=== PATIENT | male | born 1940 | race Caucasian/White ===

== ENCOUNTER 2020-11-10 12:29 | Emergency (ER) | payer MEDICARE, MEDICAID ==
[~2020-11-10] VITALS: Ht 172 cm; Wt 108.0 kg
[2020-11-10] MEDS ORDERED: FAMOTIDINE 20MG/2ML IV (PEPCID) IV STA (12:54)
--- NOTE | 2020-11-10 12:58 | ED GI ---
General Chief Complaint: Abdominal/GI Problems Stated Complaint: WEAKNESS,VOMITING DARK BROWN, NOT EATING History of Present Illness Date Seen by Provider: Nov 10, 2020 Time Seen by Provider: 12:50 Initial Comments 80-year-old male reports vomiting dark brown, coffee-ground emesis at approximately 0430 this morning. He denies eating or drinking, since he vomited. He did take his morning medications. He has had no continuation of his symptoms since then. He is on Prilosec daily, otherwise denies any chronic GI problems. On 10/19/2020 he had surgery for a cholecystectomy and ventral hernia repair at [facility]. He was admitted shortly after that for similar symptoms of coffee-ground emesis. He was started on Motrin 600 mg 3 times daily, 10/22/20 for post op pain. He denies any abdominal pain, weakness, dizziness, nausea, or vomiting. He reports not being sure why he was sent here, since he is better. Staff at [facility] spoke to his surgeon who recommended he follow up with PCP, who referred him here. He is accompanied by staff, reporting [facility] would like for him to have a CT, explained that we will start with labs and decide if a CT is indicated but based on his presenting complaints, it is unlikely. Declines any needs at this time, explained we will do a work up to assure everything is ok. Pt reports BM yesterday, no diarrhea or constipation, passing flatus today Timing/Duration: 4-6 Hours Location: Periumbilical (trace, chronic discomfort) Associated Symptoms: No Chest Pain, No Diaphoresis, No Fever/Chills, No Fatigue, No Headache, No Heartburn; Nausea/Vomiting (earlier today); No Shortness of Air, No Syncope, No Weakness Allergies and Home Medications Allergies Coded Allergies: morphine (Verified Allergy, Unknown, 11/10/20) Home Medications Famotidine 20 Mg Tablet, 20 MG PO BID Prescribed by: CJ CRUZ on 11/10/20 1347 Patient Home Medication List Home Medication List Reviewed: Yes Review of Systems Review of Systems Constitutional: no symptoms reported, see HPI Gastrointestinal: See HPI, Abdominal Pain (chronic, no change today); Denies Constipated, Denies Diarrhea; Nausea (Earlier today), Vomiting (Earlier today) All Other Systems Reviewed Negative Unless Noted: Yes Past Yzjkoxw-Mglofx-Kgrizw Hx Past Med/Social Hx: Reviewed Nursing Past Med/Soc Hx Physical Exam Vital Signs Vital Signs - First Documented 11/10/20 12:35 Temp 36.0 Pulse 77 Resp 18 B/P (MAP) 120/66 (84) Pulse Ox 96 Capillary Refill : Height/Weight/BMI Height: '" Weight: lbs. oz. kg; BMI Method: General Appearance: WD/WN, no apparent distress, obese HEENT: PERRL/EOMI, normal ENT inspection, TMs normal, pharynx normal, other (oral mucosa pink and moist) Neck: non-tender, full range of motion, supple, normal inspection Respiratory: chest non-tender, lungs clear, normal breath sounds, no respiratory distress Cardiovascular: normal peripheral pulses, regular rate, rhythm, no edema, no murmur Gastrointestinal: normal bowel sounds, non tender, soft, no pulsatile mass; No guarding, No rebound, No mass Back: normal inspection, no CVA tenderness, no vertebral tenderness Neurologic/Psychiatric: no motor/sensory deficits, alert, normal mood/affect, oriented x 3 Skin: normal color, warm/dry Progress/Results/Core Measures Results/Orders Lab Results Laboratory Tests Test 11/10/20 12:50 11/10/20 13:40 Range/Units White Blood Count 10.7 4.3-11.0 10^3/uL Red Blood Count 4.28 L 4.30-5.52 10^6/uL Hemoglobin 12.0 L 13.3-17.7 g/dL Hematocrit 38 L 40-54 % Mean Corpuscular Volume 89 80-99 fL Mean Corpuscular Hemoglobin 28 25-34 pg Mean Corpuscular Hemoglobin Concent 32 32-36 g/dL Red Cell Distribution Width 13.9 10.0-14.5 % Platelet Count 426 H 130-400 10^3/uL Mean Platelet Volume 8.9 L 9.0-12.2 fL Immature Granulocyte % (Auto) 0 % Neutrophils (%) (Auto) 70 42-75 % Lymphocytes (%) (Auto) 17 12-44 % Monocytes (%) (Auto) 5 0-12 % Eosinophils (%) (Auto) 6 0-10 % Basophils (%) (Auto) 0 0-10 % Neutrophils # (Auto) 7.6 1.8-7.8 10^3/uL Lymphocytes # (Auto) 1.8 1.0-4.0 10^3/uL Monocytes # (Auto) 0.6 0.0-1.0 10^3/uL Eosinophils # (Auto) 0.7 H 0.0-0.3 10^3/uL Basophils # (Auto) 0.0 0.0-0.1 10^3/uL Immature Granulocyte # (Auto) 0.0 0.0-0.1 10^3/uL Prothrombin Time 13.6 12.2-14.7 SEC INR Comment 1.0 0.8-1.4 Activated Partial Thromboplast Time 30 24-35 SEC Sodium Level 136 135-145 MMOL/L Potassium Level 4.9 3.6-5.0 MMOL/L Chloride Level 102 98-107 MMOL/L Carbon Dioxide Level 24 21-32 MMOL/L Anion Gap 10 5-14 MMOL/L Blood Urea Nitrogen 22 H 7-18 MG/DL Creatinine 1.42 H 0.60-1.30 MG/DL Estimat Glomerular Filtration Rate 48 BUN/Creatinine Ratio 15 Glucose Level 107 H 70-105 MG/DL Calcium Level 8.4 L 8.5-10.1 MG/DL Corrected Calcium 9.0 8.5-10.1 MG/DL Total Bilirubin 0.4 0.1-1.0 MG/DL Aspartate Amino Transf (AST/SGOT) 30 5-34 U/L Alanine Aminotransferase (ALT/SGPT) 13 0-55 U/L Alkaline Phosphatase 97 40-136 U/L Total Protein 7.5 6.4-8.2 GM/DL Albumin 3.2 3.2-4.5 GM/DL Urine Color YELLOW Urine Clarity CLEAR Urine pH 5.5 5-9 Urine Specific [place] 1.025 H 1.016-1.022 Urine Protein NEGATIVE NEGATIVE Urine Glucose (UA) NEGATIVE NEGATIVE Urine Ketones NEGATIVE NEGATIVE Urine Nitrite NEGATIVE NEGATIVE Urine Bilirubin NEGATIVE NEGATIVE Urine Urobilinogen 0.2 < = 1.0 MG/DL Urine Leukocyte Esterase NEGATIVE NEGATIVE Urine RBC (Auto) NEGATIVE NEGATIVE Urine RBC NONE /HPF Urine WBC 0-2 /HPF Urine Squamous Epithelial Cells RARE /HPF Urine Crystals NONE /LPF Urine Bacteria NEGATIVE /HPF Urine Casts NONE /LPF Urine Mucus NEGATIVE /LPF Urine Culture Indicated NO My Orders Orders - CJ CRUZ Cbc With Automated Diff (11/10/20 12:36) Comprehensive Metabolic Panel (11/10/20 12:36) Protime With Inr (11/10/20 12:36) Partial Thromboplastin Time (11/10/20 12:36) Ua Culture If Indicated (11/10/20 12:36) Ed Iv/Invasive Line Start (11/10/20 12:47) Ns Iv 1000 Ml (Sodium Chloride 0.9%) (11/10/20 13:00) Famotidine Injection (Pepcid Injection) (11/10/20 12:54) Vital Signs/I&O 11/10/20 11/10/20 12:35 13:51 Temp 36.0 Pulse 77 65 Resp 18 18 B/P (MAP) 120/66 (84) 125/73 (84) Pulse Ox 96 96 Progress Progress Note : Time: 12:50 Progress Note Patient seen and evaluated, will obtain labs, normal saline 1 L per IV and Pepcid 20 mg IV. 1315 patient taking water, no abdominal pain or vomiting. 1330 Labs all WNL, no baseline Hgb to compare but no signs of anemia. Waiting on urine sample from patient. Patient continues to deny abdominal pain or other symptoms at this time. He has had no vomiting since admission. He is continuing to take sips of water. Discharge instructions and return precautions reviewed with the patient and his staff. Departure Impression Primary Impression: Peptic ulcer Additional Impression: Vomiting Qualified Codes: R11.11 - Vomiting without nausea Disposition: 01 HOME, SELF-CARE Condition: Improved Departure-Patient Inst. Decision time for Depature: 13:30 Referrals: JC SANTOS MD (PCP/Family) Primary Care Physician Patient Instructions: Peptic Ulcers (DC) Add. Discharge Instructions: Discontinue Motrin, may give Tylenol 650 mg every 6-8 hours, for pain. Continue Prilosec daily. Add Pepcid 20 mg orally twice daily. Clear liquid diet for 4-6 hours, then advance to bland diet for next 2-3 days, avoid spicy or fried foods. Follow up with Surgeon and Dr. Santos, if symptoms are not improving or worsen. Keep scheduled appt for EGD. Return to Emergency Dept for new, urgent health care needs. All discharge instructions reviewed with patient and/or family. Voiced understanding. Scripts Famotidine (Pepcid) 20 Mg Tablet 20 MG PO BID, #60 TAB 2 Refills Prov: ANTHONY,CJ WEBSITE ADMIN 11/10/20 Copy Copies To 1: JC SANTOS MD, AMY ARNP Nov 10, 2020 12:58
[2020-11-10] MEDS ORDERED: NS IV 1000 ML 1,000 ML IV SCH (13:00)
[2020-11-10 13:03] LABS: BASOPHILS % (AUTO) 0 % (0-10); EOSINOPHILS # (AUTO) 0.7 10^3/uL (0.0-0.3); EOSINOPHILS % (AUTO) 6 % (0-10); HEMATOCRIT 38 % (40-54); LYMPHOCYTES # (AUTO) 1.8 10^3/uL (1.0-4.0); LYMPHOCYTES % (AUTO) 17 % (12-44); MEAN CORPUSCULAR HEMOGLOBIN 28 pg (25-34); MEAN CORPUSCULAR HGB CONC 32 g/dL (32-36); MEAN CORPUSCULAR VOLUME 89 fL (80-99); MEAN PLATELET VOLUME 8.9 fL (9.0-12.2); MONOCYTES # (AUTO) 0.6 10^3/uL (0.0-1.0); MONOCYTES % (AUTO) 5 % (0-12); NEUTROPHILS # (AUTO) 7.6 10^3/uL (1.8-7.8); NEUTROPHILS % (AUTO) 70 % (42-75); PLATELET COUNT 426 10^3/uL (130-400); WHITE BLOOD COUNT 10.7 10^3/uL (4.3-11.0)
[2020-11-10 13:11] LABS: PROTHROMBIN TIME PATIENT 13.6 SEC (12.2-14.7)
[2020-11-10 13:20] LABS: ALBUMIN 3.2 GM/DL (3.2-4.5); BILIRUBIN,TOTAL 0.4 MG/DL (0.1-1.0); CALCIUM 8.4 MG/DL (8.5-10.1); CREATININE SERUM 1.42 MG/DL (0.60-1.30); POTASSIUM 4.9 MMOL/L (3.6-5.0); TOTAL PROTEIN 7.5 GM/DL (6.4-8.2)
[2020-11-10 13:46] LABS: BILIRUBIN,URINE NEGATIVE (NEGATIVE); CLARITY,URINE CLEAR; COLOR,URINE YELLOW; GLUCOSE, URINE (UA) NEGATIVE (NEGATIVE); KETONES,URINE NEGATIVE (NEGATIVE); LEUKOCYTE ESTERASE ,URINE NEGATIVE (NEGATIVE); NITRITE,URINE NEGATIVE (NEGATIVE); PH,URINE 5.5 (5-9); PROTEIN,URINE NEGATIVE (NEGATIVE)
[2020-11-10] MEDS ORDERED: FAMO-119 PO (13:47)
[2020-11-10 13:51] VITALS: BP 125/73
[2020-11-10 13:53] LABS: BACTERIA,URINE NEGATIVE /HPF; SQUAMOUS EPITHELIAL CELL,UR RARE /HPF; WBC,URINE 0-2 /HPF
== END 2020-11-10 13:55 | disposition home or self-care (01) ==
LOC: ER 12:34
DX: K27.9 Peptic ulcer, site unspecified, unspecified as acute or chronic, without hemorrhage or perforation (principal); R11.10 Vomiting, unspecified; E66.9 Obesity, unspecified; Z88.5 Allergy status to narcotic agent; Z90.49 Acquired absence of other specified parts of digestive tract
CPT/HCPCS: 36415; 80053; 81000; 85025; 85610; 85730

== ENCOUNTER 2020-12-27 05:37 | Outpatient (CLI) | payer MEDICARE, MEDICAID ==
[~2020-12-27] VITALS: Ht 175.3 cm; Wt 108.8 kg
[~2020-12-27 05:37] MED LIST: FAMO-119 PO
== END 2020-12-27 14:54 | disposition home or self-care (01) ==
LOC: PREOP 05:37
PROVIDERS: ATTEND Surgery
DX: Z01.818 Encounter for other preprocedural examination (principal)

== ENCOUNTER 2021-01-03 09:25 | Day surgery (SDC) | payer MEDICARE, MEDICAID ==
[~2021-01-03] VITALS: Ht 175.3 cm; Wt 108.8 kg
[2021-01-03] VITALS (8 sets, daily range): BP systolic 106–161; BP diastolic 59–82
[2021-01-03] MEDS ORDERED: LACTATED RINGERS 1,000 ML IV STA (09:44)
[2021-01-03] MEDS ORDERED: HURRICAINE EXT TUBE (BENZOCAINE) XX PRN (09:45)
[2021-01-03] MEDS ORDERED: OMEP40CA6 PO (10:41)
[2021-01-03] MEDS ORDERED: VENL75CA93 PO (10:41)
[2021-01-03] MEDS ORDERED: FLUT16SP22 NSEACH (10:41)
[2021-01-03] MEDS ORDERED: OXYC-556 PO (10:41)
[2021-01-03] MEDS ORDERED: LEVO75CA5 PO (10:41)
[2021-01-03] MEDS ORDERED: DILT60TA PO (10:41)
[2021-01-03] MEDS ORDERED: ALLO300T2 PO (10:41)
[2021-01-03] MEDS ORDERED: MEMA28CA5 PO (10:41)
[2021-01-03] MEDS ORDERED: AMIO200T6 PO (10:41)
[2021-01-03] MEDS ORDERED: proPOfol 200 MG/20 ML (DIPRIVAN) VIAL IV ONE (10:46)
--- NOTE | 2021-01-03 11:14 | Progress Note-Post Operative ---
Post-Operative Progess Note Surgeon (s)/Reporting Manager (s) Surgeon ADRIAN TAMEZ DO Reporting Manager: none Pre-Operative Diagnosis hematemesis Post-Operative Diagnosis severe gastritis hiatal hernia tortuous esophagus Procedure & Operative Findings Date of Procedure 01/03/21 Procedure Performed/Findings PROCEDURE NOTE: After informed consent was obtained, the patient was brought to the endoscopy suite, placed in bed in left lateral decubitus position. He was administered IV sedation by the SCRAP DEALER who then monitored his vitals the entire time, heart rate, blood pressure and pulse ox and the scope was inserted down the mouth through the esophagus into the stomach. On the way down, noted a very tortuous esophagus, took a picture, pushed into the stomach, pushed past the antrum into the duodenum. Duodenum looked good; but it looked like I could see suture or staple in the duodenum and could not get past this point. Pulled back and did a biopsy of antrum, then retroflexed the scope, saw a large hiatal hernia, took a picture of this and then pulled the scope into the GE junction, took another picture of the hiatal hernia and then did a biopsy of the GE junction. Pushed the scope back into the stomach, suctioned all the air out of the stomach and then pulled the scope up the esophagus, took some pictures in the esophagus. There were no ulcers and at this point pulled the scope up the esophagus and out the mouth. The patient tolerated the procedure, and he recovered in endoscopy suite. Anesthesia Type IV sedation by SCRAP DEALER Estimated Blood Loss Estimated blood loss (mL): scant Specimens/Packing Specimens Removed antral bx body of stomach bx GE jxn bx ADRIAN TAMEZ DO Jan 03, 2021 11:14
--- NOTE | 2021-01-03 11:15 | Endoscopy Discharge Instruct ---
Endo Procedure/Findings Findings 1.: Gastritis 2.: Hiatal Hernia Discharge Instructions - Activity: You might feel a little sleepy until tomorrow. This is due to the medicine you received to relax you. Until tomorrow, you should: NOT drive a car, operate machinery or power tools. NOT drink any alcoholic beverages. NOT make any important decisions or sign importortant papers. Do not return to work until tomorrow, unless otherwise instructed. Resume previous activities tomorrow. Diet: Start by taking liquids. If you tolerate liquids, advance to solid food. 1.: EGD in 6-8 weeks Notify Physician - If you experience excessive bleeding, unusual abdominal pain, fever, or chest pain, contact your doctor immediately. ADRIAN TAMEZ DO Jan 03, 2021 11:15
--- NOTE | 2021-01-03 12:17 | Anesthesia-General Post-Op ---
MAC Patient Condition Mental Status/LOC: Same as Preop Cardiovascular: Satisfactory Nausea/Vomiting: Absent Respiratory: Satisfactory Pain: Controlled Complications: Absent Post Op Complications Complications None Follow Up Care/Instructions Patient Instructions None needed. Anesthesiology Discharge Order Discharge Order Patient was seen after the procedure and he was doing well, no complaints, stable vital signs, no apparent adverse anesthesia problems. BRAYDEN MAIER 21, 2021 12:17
== END 2021-01-03 12:05 | disposition home or self-care (01) ==
LOC: ENDO 09:25
PROVIDERS: ATTEND Surgery
DX: K29.70 Gastritis, unspecified, without bleeding (principal); K44.9 Diaphragmatic hernia without obstruction or gangrene; K22.8 Other specified diseases of esophagus; K22.2 Esophageal obstruction; K21.00 Gastro-esophageal reflux disease with esophagitis, without bleeding; K92.0 Hematemesis; I10 Essential (primary) hypertension; J44.9 Chronic obstructive pulmonary disease, unspecified; I48.91 Unspecified atrial fibrillation; K21.9 Gastro-esophageal reflux disease without esophagitis; F32.9 Major depressive disorder, single episode, unspecified; F41.9 Anxiety disorder, unspecified; E03.9 Hypothyroidism, unspecified; Z79.899 Other long term (current) drug therapy; Z79.890 Hormone replacement therapy
CPT/HCPCS: 88305

== ENCOUNTER 2021-07-31 08:30 | Inpatient (IN) | payer MEDICARE, MEDICAID ==
[~2021-07-31] VITALS: Ht 172.7 cm; Wt 113.4 kg
[~2021-07-31 08:30] MED LIST changes: +ALLO300T2 PO; +AMIO200T65 PO; +DILT60TA PO; +FLUT16SP22 NSEACH; +LEVO75CA5 PO; +MEMA28CA16 PO; +OMEP40CA6 PO; +OXYC-556 PO; +VENL75CA93 PO
--- NOTE | 2021-07-31 09:02 | ED Dyspnea ---
General Stated Complaint: WEAKNESS,N/V Source of Information: Patient Exam Limitations: No Limitations History of Present Illness Date Seen by Provider: Jul 31, 2021 Time Seen by Provider: 08:45 Initial Comments Patient to the ER by private conveyance from medical [place] with chief complaint of decreased activity shortness of breath weakness. Patient states it started about 30 days ago but is gotten worse in the past couple days and his daughter visited him and thought he might need to go to the ER to be checked out. They discovered his oxygen saturations around 90% and put him on 2 L. He does not use oxygen at baseline. He has a history of COPD but denies being wheezy. He says when he gets up just to walk across the room he becomes winded and worn out. No history of heart disease. Difficult historian. Not on blood thinners. No chest pain. 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 He denies any fevers or chills. He has had COVID-19 vaccinations. He does not know if he has had any sick contacts in the retirement. Allergies and Home Medications Allergies Coded Allergies: morphine (Verified Allergy, Unknown, 11/10/20) Patient Home Medication List Home Medication List Reviewed: Yes Allopurinol (Allopurinol) 300 Mg Tablet, 300 MG PO DAILY, (Reported) Entered as Reported by: CONNIE SMITH on 01/03/21 1041 Amiodarone HCl (Amiodarone HCl) 200 Mg Tablet, 200 MG PO DAILY, (Reported) Entered as Reported by: CONNIE SMITH on 01/03/21 1041 Diltiazem HCl (Diltiazem HCl) 60 Mg Tablet, 60 MG PO TID, (Reported) Entered as Reported by: CONNIE SMITH on 01/03/21 1041 Famotidine (Pepcid) 20 Mg Tablet, 20 MG PO BID Prescribed by: CJ CRUZ on 11/10/20 1347 Fluticasone Propionate (Fluticasone Propionate) 16 Gm [place].susp, 1 SPRAY NSEACH DAILY, (Reported) Entered as Reported by: CONNIE SMITH on 01/03/21 1041 Levothyroxine Sodium (Levothyroxine) 75 Mcg Capsule, 75 MCG PO DAILY, (Reported) Entered as Reported by: CONNIE SMITH on 01/03/21 1041 Memantine HCl (Memantine HCl ER) 28 Mg Cap.spr.24, 28 MG PO DAILY, (Reported) Entered as Reported by: CONNIE SMITH on 01/03/21 1041 Omeprazole (Omeprazole) 40 Mg Capsule.dr, 40 MG PO DAILY, (Reported) Entered as Reported by: CONNIE SMITH on 01/03/21 1041 Oxycodone HCl/Acetaminophen (Oxycodone-Acetaminophen 10-325) 1 Each Tablet, 1 EACH PO Q6H PRN for PAIN-MODERATE (5-7), (Reported) Entered as Reported by: CONNIE SMITH on 01/03/21 1041 Venlafaxine HCl (Venlafaxine HCl ER) 75 Mg Cap.er.24h, 75 MG PO DAILY, (Reported) Entered as Reported by: CONNIE SMITH on 01/03/21 1041 Review of Systems Review of Systems Constitutional: No chills, No fever; malaise, weakness EENTM: No ear discharge, No ear pain Respiratory: cough, short of breath Cardiovascular: No chest pain, No palpitations Gastrointestinal: No abdominal pain, No nausea, No vomiting Genitourinary: No discharge, No dysuria Musculoskeletal: No back pain, No joint pain Skin: No pruritus, No rash Psychiatric/Neurological: Denies Headache, Denies Numbness All Other Systems Reviewed Negative Unless Noted: Yes Past Fxzwbvk-Uykdpd-Cqbjnw Hx Patient Social History Tobacco Use?: No Use of E-Cig and/or Vaping dev: No Seasonal Allergies Seasonal Allergies: No Past Medical History Surgeries: Yes Abdominal, Gallbladder Respiratory: No Cardiac: Yes Atrial Fibrillation, Hypertension Genitourinary: No Gastrointestinal: Yes Gastroesophageal Reflux, Ulcer Musculoskeletal: No Endocrine: No HEENT: No Cancer: No Psychosocial: Yes (DEMENTIA) Anxiety, Depression Integumentary: No Physical Exam Vital Signs Vital Signs - First Documented Capillary Refill : Height, Weight, BMI Height: '" Weight: lbs. oz. kg; 35.40 BMI Method: General Appearance: Chronically ill, Moderate Distress HEENT: PERRL/EOMI, Pharynx Normal, Moist Mucous Membranes Neck: Full Range of Motion, Normal Inspection Respiratory: Lungs Clear, No Accessory Muscle Use, Decreased Breath Sounds, Respiratory Distress (Sent onModerate respiratory distress with oxygen sa turations room air. 25 breaths/min. No wheezing or crackles auscultated. Diminished breath sounds bilaterally) Cardiovascular: Regular Rate, Rhythm, No Edema, Normal Peripheral Pulses Peripheral Pulses: 2+ Dorsalis Pedis (R), 2+ Left Dors-Pedis (L) Gastrointestinal: Normal Bowel Sounds, Non Tender, Soft Extremity: Normal Capillary Refill, Normal Inspection, Normal Range of Motion Neurologic/Psychiatric: Alert, Oriented x3 Skin: Normal Color, Warm/Dry Progress/Results/Core Measures Results/Orders Lab Results Laboratory Tests Test 07/31/21 09:25 07/31/21 09:45 07/31/21 11:11 Range/Units White Blood Count 9.7 4.3-11.0 10^3/uL Red Blood Count 5.26 4.30-5.52 10^6/uL Hemoglobin 15.3 13.3-17.7 g/dL Hematocrit 47 40-54 % Mean Corpuscular Volume 89 80-99 fL Mean Corpuscular Hemoglobin 29 25-34 pg Mean Corpuscular Hemoglobin Concent 33 32-36 g/dL Red Cell Distribution Width 14.6 H 10.0-14.5 % Platelet Count 262 130-400 10^3/uL Mean Platelet Volume 9.3 9.0-12.2 fL Immature Granulocyte % (Auto) 0 % Neutrophils (%) (Auto) 71 42-75 % Lymphocytes (%) (Auto) 15 12-44 % Monocytes (%) (Auto) 5 0-12 % Eosinophils (%) (Auto) 8 0-10 % Basophils (%) (Auto) 1 0-10 % Neutrophils # (Auto) 6.9 1.8-7.8 10^3/uL Lymphocytes # (Auto) 1.5 1.0-4.0 10^3/uL Monocytes # (Auto) 0.5 0.0-1.0 10^3/uL Eosinophils # (Auto) 0.8 H 0.0-0.3 10^3/uL Basophils # (Auto) 0.1 0.0-0.1 10^3/uL Immature Granulocyte # (Auto) 0.0 0.0-0.1 10^3/uL Prothrombin Time 13.9 12.2-14.7 SEC INR Comment 1.0 0.8-1.4 D-Dimer 0.41 0.00-0.49 UG/ML Sodium Level 131 L 135-145 MMOL/L Potassium Level 3.8 3.6-5.0 MMOL/L Chloride Level 95 L 98-107 MMOL/L Carbon Dioxide Level 25 21-32 MMOL/L Anion Gap 11 5-14 MMOL/L Blood Urea Nitrogen 15 7-18 MG/DL Creatinine 1.32 H 0.60-1.30 MG/DL Estimat Glomerular Filtration Rate 55 BUN/Creatinine Ratio 11 Glucose Level 105 70-105 MG/DL Calcium Level 8.9 8.5-10.1 MG/DL Corrected Calcium 9.3 8.5-10.1 MG/DL Total Bilirubin 0.7 0.1-1.0 MG/DL Aspartate Amino Transf (AST/SGOT) 20 5-34 U/L Alanine Aminotransferase (ALT/SGPT) 10 0-55 U/L Alkaline Phosphatase 75 40-136 U/L Troponin I 0.046 H <0.028 NG/ML C-Reactive Protein High Sensitivity 1.44 H 0.00-0.50 MG/DL B-Type Natriuretic Peptide 71.5 <100.0 PG/ML Total Protein 7.7 6.4-8.2 GM/DL Albumin 3.5 3.2-4.5 GM/DL Procalcitonin 0.10 H <0.10 NG/ML Influenza Type A (RT-PCR) Not Detected Not Detecte Influenza Type B (RT-PCR) Not Detected Not Detecte SARS-CoV-2 RNA (RT-PCR) Not Detected Not Detecte Blood Gas Puncture Site R RAD Blood Gas Patient Temperature 36.9 Arterial Blood pH 7.37 7.37-7.43 Arterial Blood Partial Pressure CO2 46 H 35-45 MMHG Arterial Blood Partial Pressure O2 104 H 79-93 MMHG Arterial Blood HCO3 26 23-27 MMOL/L Arterial Blood Total CO2 27.4 21.0-31.0 MMOL/L Arterial Blood Oxygen Saturation 96 94-100 % Arterial Blood Base Excess 1.3 -2.5-2.5 MMOL/L Erasmo Test YES-POS Blood Gas Ventilator Setting NO Blood Gas Inspired Oxygen 2L Urine Color DARK YELLOW Urine Clarity SL CLOUDY Urine pH 6.0 5-9 Urine Specific [place] 1.025 H 1.016-1.022 Urine Protein NEGATIVE NEGATIVE Urine Glucose (UA) NEGATIVE NEGATIVE Urine Ketones NEGATIVE NEGATIVE Urine Nitrite NEGATIVE NEGATIVE Urine Bilirubin 1+ H NEGATIVE Urine Urobilinogen 1.0 < = 1.0 MG/DL Urine Leukocyte Esterase 1+ H NEGATIVE Urine RBC (Auto) TRACE-I H NEGATIVE Urine RBC 0-2 /HPF Urine WBC 25-50 H /HPF Urine Squamous Epithelial Cells NONE /HPF Urine Crystals NONE /LPF Urine Bacteria TRACE /HPF Urine Casts NONE /LPF Urine Mucus NEGATIVE /LPF Urine Culture Indicated YES My Orders Orders - DANYELLE METZGER Cbc With Automated Diff (07/31/21 08:55) Comprehensive Metabolic Panel (07/31/21 08:55) Hs C Reactive Protein (07/31/21 08:55) Chest 1 View, Ap/Pa Only (07/31/21 08:55) O2 (07/31/21 08:55) Ua Culture If Indicated (07/31/21 08:55) Protime With Inr (07/31/21 08:55) Ekg Tracing (07/31/21 08:55) Continuous Ekg Monitoring (07/31/21 08:55) Troponin I Sp (07/31/21 08:55) Bnp Sp (07/31/21 08:55) Covid 19 Inhouse Test (07/31/21 08:55) Influenza A And B By Pcr (07/31/21 08:55) Fibrin Degradation Products (07/31/21 08:58) Procalcitonin (Pct) (07/31/21 08:58) Ed Iv/Invasive Line Start (07/31/21 09:02) Ns Iv 500 Ml (Sodium Chloride 0.9%) (07/31/21 09:15) Arterial Blood Gas (07/31/21 09:45) Arterial Blood Draw - Obtain (07/31/21 ) Urine Culture (07/31/21 11:11) Medications Given in ED Current Medications Medications Dose Ordered Sig/Julianne Route Start Time Stop Time Status Last Admin Dose Admin Sodium Chloride 500 ml @ 0 mls/hr Q0M ONCE IV 07/31/21 09:15 07/31/21 09:16 DC 07/31/21 09:27 500 MLS/HR Vital Signs/I&O 07/31/21 07/31/21 07/31/21 08:50 08:50 09:20 Temp 36.9 Pulse 81 Resp 22 B/P (MAP) 119/78 (92) Pulse Ox 95 O2 Delivery Nasal Cannula Nasal Cannula Nasal Cannula O2 Flow Rate 2.00 2.00 2.00 Progress Progress Note #1: Time: 09:02 Progress Note Patient has some respiratory distress. ABG labs, EKG, D-dimer, procalcitonin, COVID and influenza swabs and a chest x-ray. Aseptic vital signs. Progress Note #2: Time: 11:33 Progress Note Patient's troponin is marginally elevated and creatinine is a little off but not enough to explain the troponin. He will likely need some trended troponins. This might explain his exercise intolerance lately. We will give him Rocephin for his UTI Initial ECG Impression Date: Jul 31, 2021 Initial ECG Impression Time: 08:54 Initial ECG Rate: 73 Initial ECG Rhythm: Normal Sinus Initial ECG Intervals: QT (596) Initial ECG Impression: Normal Initial ECG Comparisson: No Previous ECG Available Diagnostic Imaging Diagonstic Imaging: Xray Plain Films/CT/US/NM/MRI: chest Comments [facility], [place] NAME: CHRISTOS V[facility] REC#: [id number] PT STATUS: REG ER : 1940 PHYSICIAN: DANYELLE METZGER MD ADMIT DATE: 07/31/21/ER Signed Date of Exam:07/31/21 CHEST 1 VIEW, AP/PA ONLY CHEST 1 VIEW, AP/PA ONLY Indication: Shortness of air. Comparison: None available. Findings: Ill-defined opacities with reticular appearance of present in the periphery of the lungs, greater on the right. No pleural effusion or pneumothorax. Heart is normal in size. Apical subpleural scarring is likely present. Impression: 1. Peripheral ill-defined opacities could be on the basis of emphysema or chronic interstitial lung disease. In the acute setting, atypical infection could give this appearance. Dictated by: Dictated on workstation # [id number] Dict: 07/31/21 1030 Trans: 07/31/218 [id number] Interpreted by: JESSICA MANDUJANO MD Electronically signed by: JESSICA MANDUJANO MD 07/31/21 1128 Reviewed: Reviewed by Me Departure Communication (Admissions) Time/Spoke to Admitting Phy: 11:45 Discussed the case with Dr. Munguia and he agrees with Sharona, observation and trend troponins. Time/Spoke to Consulting Phy: 11:39 Discussed the case with Dr. Barron and he agrees to consult on the case. Observe and trend troponins. Impression Primary Impression: UTI (urinary tract infection) Qualified Codes: N30.00 - Acute cystitis without hematuria Additional Impression: Elevated troponin I level Disposition: ADMITTED INPATIENT Condition: Stable Admissions Decision to Admit Reason: Admit from ER (General) Decision to Admit/Date: Jul 31, 2021 Time/Decision to Admit Time: 11:35 Departure-Patient Inst. Referrals: JC SANTOS MD (PCP/Family) Primary Care Physician DANYELLE METZGER Jul 31, 2021 09:02
[2021-07-31] MEDS ORDERED: NS IV 500 ML 500 ML IV ONE (09:15)
[2021-07-31 09:36] LABS: BASOPHILS # (AUTO) 0.1 10^3/uL (0.0-0.1); BASOPHILS % (AUTO) 1 % (0-10); EOSINOPHILS # (AUTO) 0.8 10^3/uL (0.0-0.3); EOSINOPHILS % (AUTO) 8 % (0-10); HEMATOCRIT 47 % (40-54); HEMOGLOBIN 15.3 g/dL (13.3-17.7); LYMPHOCYTES # (AUTO) 1.5 10^3/uL (1.0-4.0); LYMPHOCYTES % (AUTO) 15 % (12-44); MEAN CORPUSCULAR HEMOGLOBIN 29 pg (25-34); MEAN CORPUSCULAR HGB CONC 33 g/dL (32-36); MEAN CORPUSCULAR VOLUME 89 fL (80-99); MEAN PLATELET VOLUME 9.3 fL (9.0-12.2); MONOCYTES # (AUTO) 0.5 10^3/uL (0.0-1.0); MONOCYTES % (AUTO) 5 % (0-12); NEUTROPHILS # (AUTO) 6.9 10^3/uL (1.8-7.8); NEUTROPHILS % (AUTO) 71 % (42-75); PLATELET COUNT 262 10^3/uL (130-400); WHITE BLOOD COUNT 9.7 10^3/uL (4.3-11.0)
[2021-07-31 09:54] LABS: ABG BASE EXCESS 1.3 MMOL/L (-2.5-2.5); ABG OXYGEN SATURATION 96 % (94-100); ABG PCO2 46 MMHG (35-45); ABG PH 7.37 (7.37-7.43); ABG PO2 104 MMHG (79-93); ABG TCO2 27.4 MMOL/L (21.0-31.0); ALLENS TEST YES-POS; INSPIRED O2 2L; PATIENT TEMP 36.9; VENTILATOR NO
[2021-07-31 09:57] LABS: ALBUMIN 3.5 GM/DL (3.2-4.5); POTASSIUM 3.8 MMOL/L (3.6-5.0)
[2021-07-31 09:59] LABS: CALCIUM 8.9 MG/DL (8.5-10.1)
[2021-07-31 10:00] LABS: TOTAL PROTEIN 7.7 GM/DL (6.4-8.2)
[2021-07-31 10:01] LABS: FIBRIN DEGRADATION PRODUCTS 0.41 UG/ML (0.00-0.49); PROTHROMBIN TIME PATIENT 13.9 SEC (12.2-14.7)
[2021-07-31 10:02] LABS: BILIRUBIN,TOTAL 0.7 MG/DL (0.1-1.0)
[2021-07-31 10:04] LABS: CREATININE SERUM 1.32 MG/DL (0.60-1.30)
--- NOTE | 2021-07-31 10:56 | Diagnostic Imaging Report ---
CHEST 1 VIEW, AP/PA ONLY Indication: Shortness of air. Comparison: None available. Findings: Ill-defined opacities with reticular appearance of present in the periphery of the lungs, greater on the right. No pleural effusion or pneumothorax. Heart is normal in size. Apical subpleural scarring is likely present. Impression: 1. Peripheral ill-defined opacities could be on the basis of emphysema or chronic interstitial lung disease. In the acute setting, atypical infection could give this appearance. Dictated by: Dictated on workstation # [id number]
[2021-07-31 11:15] LABS: CLARITY,URINE SL CLOUDY; COLOR,URINE DARK YELLOW; GLUCOSE, URINE (UA) NEGATIVE (NEGATIVE); KETONES,URINE NEGATIVE (NEGATIVE); LEUKOCYTE ESTERASE ,URINE 1+ (NEGATIVE); NITRITE,URINE NEGATIVE (NEGATIVE); PROTEIN,URINE NEGATIVE (NEGATIVE)
[2021-07-31 11:26] LABS: BACTERIA,URINE TRACE /HPF; BILIRUBIN,URINE 1+ (NEGATIVE); RBC,URINE 0-2 /HPF; WBC,URINE 25-50 /HPF
[2021-07-31] MEDS ORDERED: ENOXAPARIN 60 MG/0.6 ML (LOVENOX) SYR SC ONE ×2 (12:00)
[2021-07-31] MEDS ORDERED: CATHETER FLUSH 10 ML SYR IV PRN (12:30)
[2021-07-31] MEDS ORDERED: ONDANSETRON 4 MG/2 ML (SDV) Z0FRAN IVP PRN (12:30)
[2021-07-31 12:38] VITALS: BP 132/78
[2021-07-31] MEDS ORDERED: NITROGLYCERIN 0.4 MG SL TABS BTL 25'S SL PRN (12:45)
[2021-07-31] MEDS: cefTRIAXone 1 GM IV (PRE-MIX) 50 ML IV SCH (13:49)
[2021-07-31] MEDS: ACETAMINOPHEN 325 MG TABLET PO PRN (13:50)
[2021-07-31] MEDS: CATHETER FLUSH 10 ML SYR IV SCH ×2 (13:53→20:10)
[2021-07-31] MEDS ORDERED: LEVO150C4 PO (14:42)
[2021-07-31] MEDS ORDERED: TRZ50T PO (14:44)
--- NOTE | 2021-07-31 15:50 | Consultation-Cardiology ---
HPI-Cardiology Cardiology Consultation: Date of Consultation 07/31/21 Time Seen by a Provider: 14:10 Date of Admission Attending Physician Petr Munguia MD Admitting Physician Andres Frazier MD Consulting Physician TREVOR LUCIO MD, MA, FACP, FACC, FSCAI, CCDS HPI: Chief Complaint: Reason for Card consult: Elevated troponin 81 yo man, resident of a care facility, who came to the ER at the behest of his family for eval of increasing shortness of breath and mild hypoxemia noted at his care facility. He states he is chronically short of breath, but this has been progressive for the last two weeks. He denies cp or palp or syncope or swelling. He notes a cough productive of small qty of yellowish sputum. He notes gen malaise and weakness. Review of Systems-Cardiology Review of Systems Constitutional: malaise, tiredness; No weight loss, No weight gain Eyes: No vision change Ears/Nose/Throat: No ear discharge, No nasal drainage, No recent hearing loss Respiratory: As described under HPI Cardiovascular: As described under HPI Gastrointestinal: No diarrhea, No nausea, No vomiting Genitourinary: No dysuria, No hematuria, No urine frequency changes Musculoskeletal: back pain (chronic) Skin: No rash, No ulcerations Psychiatric/Neurological: No seizure, No focal weakness, No syncope Hematologic: No bleeding abnormalities All Other Systems Reviewed Negative Unless Noted: Yes [id number]-Hryxes Hx Patient Social History Smoking Status: Former Smoker Have you traveled recently?: No Alcohol Use?: No Pt feels they are or have been: No Past Medical History PMH As described under Assessment. Allergies and Home Medications Allergies Coded Allergies: morphine (Verified Allergy, Unknown, 11/10/20) Patient Home Medication List Home Medication List Reviewed: Yes Allopurinol (Allopurinol) 300 Mg Tablet, 300 MG PO DAILY, (Reported) Entered as Reported by: CONNIE SMITH on 01/03/21 1041 Last Action: Reviewed Amiodarone HCl (Amiodarone HCl) 200 Mg Tablet, 200 MG PO DAILY, (Reported) Entered as Reported by: CONNIE SMITH on 01/03/21 1041 Last Action: Reviewed Diltiazem HCl (Diltiazem HCl) 60 Mg Tablet, 60 MG PO TID, (Reported) Entered as Reported by: CONNIE SMITH on 01/03/21 1041 Last Action: Reviewed Famotidine (Pepcid) 20 Mg Tablet, 20 MG PO BID Prescribed by: CJ CRUZ on 11/10/20 1347 Last Action: Reviewed Fluticasone Propionate (Fluticasone Propionate) 16 Gm [place].susp, 1 SPRAY NSEACH DAILY, (Reported) Entered as Reported by: CONNIE SMITH on 01/03/211040 Last Action: Reviewed Levothyroxine Sodium (Levothyroxine) 150 Mcg Capsule, 150 MCG PO DAILY, (Reported) Entered as Reported by: Denisha Zelaya on 07/31/21 1442 Last Action: New Order Memantine HCl (Memantine HCl ER) 28 Mg Cap.spr.24, 28 MG PO DAILY, (Reported) Entered as Reported by: CONNIE SMITH on 01/03/211040 Last Action: Reviewed Omeprazole (Omeprazole) 40 Mg Capsule.dr, 40 MG PO DAILY, (Reported) Entered as Reported by: CONNIE SMITH on 01/03/211040 Oxycodone HCl/Acetaminophen (Oxycodone-Acetaminophen 10-325) 1 Each Tablet, 1 EACH PO Q6H PRN for PAIN-MODERATE (5-7), (Reported) Entered as Reported by: CONNIE SMITH on 01/03/211040 Last Action: Reviewed Trazodone HCl (Trazodone HCl) 50 Mg Tablet, 50 MG PO HS, (Reported) Entered as Reported by: Denisha Zelaya on 07/31/21 1444 Last Action: New Order Venlafaxine HCl (Venlafaxine HCl ER) 75 Mg Cap.er.24h, 75 MG PO DAILY, (Reported) Entered as Reported by: CONNIE SMITH on 01/03/211040 Last Action: Reviewed Discontinued Medications Levothyroxine Sodium (Levothyroxine) 75 Mcg Capsule, 75 MCG PO DAILY, (Reported) Discontinued Reason: No Longer Taking Entered as Reported by: CONNIE SMITH on 01/03/211040 Last Action: Discontinued Physical Exam-Cardiology Physical Exam Vital Signs/I&O 07/31/21 07/31/21 07/31/21 07/31/21 08:50 08:50 09:20 12:11 Temp 36.9 Pulse 81 Resp 22 66 B/P (MAP) 119/78 (92) 97/72 Pulse Ox 95 99 O2 Delivery Nasal Cannula Nasal Cannula Nasal Cannula Nasal Cannula O2 Flow Rate 2.00 2.00 2.00 2.00 07/31/21 07/31/21 07/31/21 12:32 12:38 14:13 Temp 36.8 Pulse 68 69 Resp 20 B/P (MAP) 132/78 (96) Pulse Ox 99 96 O2 Delivery Nasal Cannula Nasal Cannula O2 Flow Rate 2.00 3.00 Capillary Refill : Less Than 3 Seconds Constitutional: AAO x 3, well-developed, well-nourished HEENT: EOMI, hearing is well preserved; No xanthelasmas are seen Neck: carotid pulses are 2 + bilaterally, with good upstrokes Respiratory: No accessory muscle use; other (scattered rhonchi over large airways, coarse crackles at lung bases) Cardiovascular: regular rate-rhythm, S1 and S2, systolic murmur (soft DIPAK at card base) Gastrointestinal: No tender; soft; No guarding, No rebound; audible bowel sounds Extremities: No clubbing, No cyanosis, No significant edema Neurologic/Psychiatric: oriented x 3, other (moves all limbs equally) Skin: No rash on exposed areas, No ulcerations on exposed areas Data Review Labs Laboratory Tests 07/31/21 09:25: White Blood Count 9.7, Red Blood Count 5.26, Hemoglobin 15.3, Hematocrit 47, Mean Corpuscular Volume 89, Mean Corpuscular Hemoglobin 29, Mean Corpuscular Hemoglobin Concent 33, Red Cell Distribution Width 14.6H, Platelet Count 262, Mean Platelet Volume 9.3, Immature Granulocyte % (Auto) 0, Neutrophils (%) (Auto) 71, Lymphocytes (%) (Auto) 15, Monocytes (%) (Auto) 5, Eosinophils (%) (Auto) 8, Basophils (%) (Auto) 1, Neutrophils # (Auto) 6.9, Lymphocytes # (Auto) 1.5, Monocytes # (Auto) 0.5, Eosinophils # (Auto) 0.8H, Basophils # (Auto) 0.1, Immature Granulocyte # (Auto) 0.0, Prothrombin Time 13.9, INR Comment 1.0, D- Dimer 0.41, Sodium Level 131L, Potassium Level 3.8, Chloride Level 95L, Carbon Dioxide Level 25, Anion Gap 11, Blood Urea Nitrogen 15, Creatinine 1.32H, Est imat Glomerular Filtration Rate 55, BUN/Creatinine Ratio 11, Glucose Level 105, Calcium Level 8.9, Corrected Calcium 9.3, Total Bilirubin 0.7, Aspartate Amino Transf (AST/SGOT) 20, Alanine Aminotransferase (ALT/SGPT) 10, Alkaline Phosphatase 75, Troponin I 0.046H, C-Reactive Protein High Sensitivity 1.44H, B- Type Natriuretic Peptide 71.5, Total Protein 7.7, Albumin 3.5, Procalcitonin 0.10H, Influenza Type A (RT-PCR) Not Detected, Influenza Type B (RT-PCR) Not Detected, SARS-CoV-2 RNA (RT-PCR) Not Detected 07/31/21 09:45: Blood Gas Puncture Site R RAD, Blood Gas Patient Temperature 36.9, Arterial Blood pH 7.37, Arterial Blood Partial Pressure CO2 46H, Arterial Blood Partial Pressure O2 104H, Arterial Blood HCO3 26, Arterial Blood Total CO2 27.4, Arterial Blood Oxygen Saturation 96, Arterial Blood Base Excess 1.3, Erasmo Test YES-POS, Blood Gas Ventilator Setting NO, Blood Gas Inspired Oxygen 2L 07/31/21 11:11: Urine Color DARK YELLOW, Urine Clarity SL CLOUDY, Urine pH 6.0, Urine Specific [place] 1.025H, Urine Protein NEGATIVE, Urine Glucose (UA) NEGATIVE, Urine Ketones NEGATIVE, Urine Nitrite NEGATIVE, Urine Bilirubin 1+H, Urine Urobilinogen 1.0, Urine Leukocyte Esterase 1+H, Urine RBC (Auto) TRACE-IH, Urine RBC 0-2, Urine WBC 25-50H, Urine Squamous Epithelial Cells NONE, Urine Crystals NONE, Urine Bacteria TRACE, Urine Casts NONE, Urine Mucus NEGATIVE, Urine Culture Indicated YES 07/31/21 15:20: Laboratory Tests 07/31/21 09:25 A/P-Cardiology Assessment/Admission Diagnosis Lower resp tract infection / bronchopneumonia Minimal troponin elevation: likely type 2 VT due to hypoxia due to pneumonia RBBB on ECG of 07/31/20 UTI Discussion and Recomendations * Serial enzymes and ECGs * Echo * Add ASA * Monitor labs * Treatment of UTI and suspected pneumonia is by the Hospitalist TREVOR Ovalle MD [facility] CCDS Jul 31, 2021 15:50
[2021-07-31 16:32] VITALS: BP 114/66
[2021-07-31 19:55] VITALS: BP 132/76
[2021-07-31] MEDS ORDERED: oxyCODONE/APAP 10/325MG (PERCOCET 10) TABLET PO PRN (20:45)
[2021-07-31] MEDS: traZODone 50 MG (DESYREL) TAB PO SCH (21:12)
[2021-08-01] VITALS (7 sets, daily range): BP systolic 105–132; BP diastolic 56–82
[2021-08-01] MEDS: ENOXAPARIN 300 MG/3 ML (LOVENOX) MULTI-DOSE VIAL SQ SCH ×3 (00:33→23:56)
[2021-08-01] MEDS: CATHETER FLUSH 10 ML SYR IV SCH ×3 (05:34→20:06)
[2021-08-01 06:17] LABS: BASOPHILS % (AUTO) 0 % (0-10); EOSINOPHILS # (AUTO) 0.7 10^3/uL (0.0-0.3); EOSINOPHILS % (AUTO) 9 % (0-10); HEMATOCRIT 42 % (40-54); HEMOGLOBIN 13.6 g/dL (13.3-17.7); LYMPHOCYTES # (AUTO) 1.7 10^3/uL (1.0-4.0); LYMPHOCYTES % (AUTO) 23 % (12-44); MEAN CORPUSCULAR HEMOGLOBIN 29 pg (25-34); MEAN CORPUSCULAR HGB CONC 33 g/dL (32-36); MEAN CORPUSCULAR VOLUME 89 fL (80-99); MEAN PLATELET VOLUME 9.7 fL (9.0-12.2); MONOCYTES # (AUTO) 0.5 10^3/uL (0.0-1.0); MONOCYTES % (AUTO) 7 % (0-12); NEUTROPHILS # (AUTO) 4.4 10^3/uL (1.8-7.8); NEUTROPHILS % (AUTO) 61 % (42-75); PLATELET COUNT 220 10^3/uL (130-400); WHITE BLOOD COUNT 7.3 10^3/uL (4.3-11.0)
[2021-08-01 06:33] LABS: POTASSIUM 3.8 MMOL/L (3.6-5.0)
[2021-08-01 06:34] LABS: CALCIUM 8.3 MG/DL (8.5-10.1)
[2021-08-01 06:39] LABS: CREATININE SERUM 1.26 MG/DL (0.60-1.30)
--- NOTE | 2021-08-01 07:35 | Diagnostic Imaging Report ---
INDICATION: Hypoxemia. Comparison made with prior examination of 07/31/2021. FINDINGS: The heart size is normal. There is mild venous congestion. There are patchy bibasilar infiltrates. No pleural effusion or pneumothorax. Mediastinum unremarkable. IMPRESSION: Patchy bibasilar pulmonary infiltrates with some mild central pulmonary venous congestion. Dictated by: Dictated on workstation # [id number]
[2021-08-01] MEDS: ASPIRIN E.C. 81 MG (ECOTRIN) TAB PO SCH ×2 (08:07→09:00)
--- NOTE | 2021-08-01 09:35 | History & Physical-Hospitalist ---
History of Present Illness HPI/Chief Complaint Patient to the ER by private conveyance from medical [place] with chief complaint of decreased activity shortness of breath weakness. Patient states it started about 30 days ago but is gotten worse in the past couple days and his daughter visited him and thought he might need to go to the ER to be checked out. They discovered his oxygen saturations around 90% and put him on 2 L. He does not use oxygen at baseline. He has a history of COPD but denies being wheezy. He says when he gets up just to walk across the room he becomes winded and worn out. No history of heart disease. Difficult historian. Not on blood thinners. No chest pain. 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 He denies any fevers or chills. He has had COVID-19 vaccinations. He does not know if he has had any sick contacts in the custodial. On my rep arrival the patient was sleeping comfortably he reports no chest pain or shortness of breath. He is pleasant and states that he is feeling better than yesterday. He reports mild cough with no sputum production he was unable to void overnight with of residual of around 380 cc so Avalos was placed. He denies any penile pain or burning. He reports no past history for the need for catheterization. He denied chills fever or night sweats. He reports no abdominal pain. Date Seen 08/01/21 Time Seen by a Provider: 07:30 Attending Physician Petr Amaya MD PCP Andres Frazier MD Referring Physician Date of Admission Jul 31, 2021 at 11:50 Home Medications & Allergies Home Medications Reviewed patient Home Medication Reconciliation performed by pharmacy medication reconciliations surgical instrument technician and/or nursing. Patients Allergies have been reviewed. Allergies Allergies Coded Allergies morphine (Verified Allergy, Unknown, 11/10/20) Past Sifaudp-Qdndca-Colsax Hx Patient Social History Tobacco Use?: No Smoking Status: Former Smoker Use of E-Cig and/or Vaping dev: No Substance use?: No Alcohol Use?: No Pt feels they are or have been: No Immunizations Up To Date First/Initial COVID19 Vaccinat: UNKNOWN Second COVID19 Vaccination Jayce: UNKNOWN Seasonal Allergies Seasonal Allergies: No Current Status Advance Directives: Unable to obtain Communicates: Verbally Primary Language: Lithuanian Preferred Spoken Language: Lithuanian Is interpretation needed?: No Past Medical History Surgeries: Abdominal, Gallbladder Atrial Fibrillation, Hypertension Gastroesophageal Reflux, Ulcer Anxiety, Depression Review of Systems Constitutional: see HPI Physical Exam Physical Exam Vital Signs Vital Signs - First Documented Capillary Refill : Less Than 3 Seconds Height, Weight, BMI Height: '" Weight: lbs. oz. kg; 38.02 BMI Method: General Appearance: No Apparent Distress, Obese Respiratory: No Accessory Muscle Use, No Respiratory Distress, Other (Some decreased breath sounds with bibasilar rales chest elsewhere clear no wheezing noted.) Cardiovascular: Regular Rate, Rhythm, Other (Distant heart sounds no murmur a ppreciated) Gastrointestinal: Normal Bowel Sounds, No Organomegaly, No Pulsatile Mass, Non Tender, Soft Extremity: Other (Trace bilateral edema no ulceration) Results Results/Procedures Labs Laboratory Tests 07/31/21 09:25 08/01/21 05:51 Patient resulted labs reviewed. Assessment/Plan Admission Diagnosis 1. Urinary tract infection with urinary obstruction requiring Avalos catheterization. Continue IV antibiotics cultures pending. 2. Exam also suggest the possibility of pneumonia COVID-negative influenza negative continue antibiotics in this regard as well. 3. Non-ST segment elevation [place] likely type II [place] further work-up of per cardiology no evidence to suggest acute coronary syndrome at this time repeat troponin level back to normal. Admission Status: Inpatient Order (span 2 midnights) Reason for Inpatient Admission: See admission diagnosis PETR AMAYA MD Aug 01, 2021 09:35
[2021-08-01] MEDS: cefTRIAXone 1 GM IV (PRE-MIX) 50 ML IV SCH (13:11)
[2021-08-01] MEDS: ACETAMINOPHEN 325 MG TABLET PO PRN (13:54)
--- NOTE | 2021-08-01 15:00 | Progress Note - Cardiology ---
Cardiology SOAP Progress Note Subjective: Gen weakness and malaise present No cp or palp or syncope Shortness of breath improving No n/v/d Objective: I&O/Vital Signs 08/01/21 08/01/21 08/01/21 08/01/21 03:15 07:00 07:47 08:09 Temp 36.4 36.1 Pulse 59 69 70 Resp 18 18 B/P (MAP) 108/72 (84) 105/65 (78) Pulse Ox 98 99 O2 Delivery Nasal Cannula Nasal Cannula Nasal Cannula O2 Flow Rate 3.50 2.00 3.50 08/01/21 08/01/21 12:25 12:31 Temp 36.6 Pulse 68 69 Resp 18 B/P (MAP) 111/59 (76) Pulse Ox 96 O2 Delivery Nasal Cannula O2 Flow Rate 3.50 08/01/21 00:00 Intake Total 250 ml Output Total 200 ml Balance 50 ml Constitutional: AAO x 3, well-developed, well-nourished Respiratory: No accessory muscle use; other (scattered rhonchi over large airways, coarse crackles at lung bases) Cardiovascular: regular rate-rhythm, S1 and S2, systolic murmur (soft DIPAK at card base) Gastrointestional: No tender; soft; No guarding, No rebound; audible bowel sounds Extremities: No clubbing, No cyanosis, No significant edema Neurologic/Psychiatric: oriented x 3, other (moves all limbs equally) Skin: No rash on exposed areas, No ulcerations on exposed areas Results/Procedures: Labs Laboratory Tests 07/31/21 15:20: Troponin I < 0.028 07/31/21 21:16: Troponin I < 0.028 08/01/21 05:51: White Blood Count 7.3, Red Blood Count 4.66, Hemoglobin 13.6, Hematocrit 42, Mean Corpuscular Volume 89, Mean Corpuscular Hemoglobin 29, Mean Corpuscular Hemoglobin Concent 33, Red Cell Distribution Width 14.6H, Platelet Count 220, Mean Platelet Volume 9.7, Immature Granulocyte % (Auto) 0, Neutrophils (%) (Auto) 61, Lymphocytes (%) (Auto) 23, Monocytes (%) (Auto) 7, Eosinophils (%) (Auto) 9, Basophils (%) (Auto) 0, Neutrophils # (Auto) 4.4, Lymphocytes # (Auto) 1.7, Monocytes # (Auto) 0.5, Eosinophils # (Auto) 0.7H, Basophils # (Auto) 0.0, Immature Granulocyte # (Auto) 0.0, Sodium Level 130L, Potassium Level 3.8, Chloride Level 96L, Carbon Dioxide Level 24, Anion Gap 10, Blood Urea Nitrogen 16, Creatinine 1.26, Estimat Glomerular Filtration Rate 58, BUN/Creatinine Ratio 13, Glucose Level 90, Calcium Level 8.3L, Triglycerides Level 107, Cholesterol Level 118, LDL Cholesterol Direct 84, VLDL Cholesterol 21, HDL Cholesterol 25L Microbiology 07/31/21 Urine Culture - Preliminary, Resulted Enterococcus species Laboratory Tests 07/31/21 09:25 08/01/21 05:51 A/P: Assessment: Lower resp tract infection / bronchopneumonia Minimal troponin elevation on first eval but the two subsequent were normal: No evidence of ACS RBBB on ECG of 07/31/20 UTI Plan: * Monitor labs * Treatment of UTI and suspected pneumonia is by the Hospitalist TREVOR Ovalle MD FACP FAC CCDS Aug 01, 2021 15:00
[2021-08-01] MEDS ORDERED: POLY17PO6 PO (15:28)
[2021-08-01] MEDS ORDERED: FAMO20TA3 PO (15:34)
[2021-08-01] MEDS ORDERED: PANT40TA52 PO (15:34)
[2021-08-01] MEDS ORDERED: MENT118G TP (15:36)
[2021-08-01] MEDS ORDERED: MAGN400O7 PO (15:37)
[2021-08-01] MEDS ORDERED: GUAI-367 PO (15:38)
[2021-08-01] MEDS ORDERED: LEVO150T6 PO (15:53)
[2021-08-01] MEDS: traZODone 50 MG (DESYREL) TAB PO SCH (20:06)
[2021-08-02 04:49] VITALS: BP 115/57
[2021-08-02] MEDS: CATHETER FLUSH 10 ML SYR IV SCH ×2 (05:58→15:24)
[2021-08-02 06:43] LABS: BASOPHILS % (AUTO) 0 % (0-10); EOSINOPHILS # (AUTO) 0.4 10^3/uL (0.0-0.3); EOSINOPHILS % (AUTO) 7 % (0-10); HEMATOCRIT 41 % (40-54); HEMOGLOBIN 13.6 g/dL (13.3-17.7); LYMPHOCYTES % (AUTO) 17 % (12-44); MEAN CORPUSCULAR HEMOGLOBIN 29 pg (25-34); MEAN CORPUSCULAR HGB CONC 33 g/dL (32-36); MEAN CORPUSCULAR VOLUME 90 fL (80-99); MEAN PLATELET VOLUME 9.7 fL (9.0-12.2); MONOCYTES # (AUTO) 0.4 10^3/uL (0.0-1.0); MONOCYTES % (AUTO) 7 % (0-12); NEUTROPHILS # (AUTO) 4.2 10^3/uL (1.8-7.8); NEUTROPHILS % (AUTO) 69 % (42-75); PLATELET COUNT 236 10^3/uL (130-400); WHITE BLOOD COUNT 6.1 10^3/uL (4.3-11.0)
[2021-08-02 07:02] LABS: ALBUMIN 2.9 GM/DL (3.2-4.5); BILIRUBIN,TOTAL 0.4 MG/DL (0.1-1.0); CALCIUM 8.5 MG/DL (8.5-10.1); CREATININE SERUM 1.16 MG/DL (0.60-1.30); TOTAL PROTEIN 6.5 GM/DL (6.4-8.2)
[2021-08-02 07:30] VITALS: BP 128/62
[2021-08-02] MEDS: ASPIRIN E.C. 81 MG (ECOTRIN) TAB PO SCH (09:19)
--- NOTE | 2021-08-02 09:40 | Progress Note - Hospitalist ---
Subjective HPI/CC On Admission Date Seen by Provider: Aug 02, 2021 Patient to the ER by private conveyance from medical [place] with chief complaint of decreased activity shortness of breath weakness. Patient states it started about 30 days ago but is gotten worse in the past couple days and his daughter visited him and thought he might need to go to the ER to be checked out. They discovered his oxygen saturations around 90% and put him on 2 L. He does not use oxygen at baseline. He has a history of COPD but denies being wheezy. He says when he gets up just to walk across the room he becomes winded and worn out. No history of heart disease. Difficult historian. Not on blood thinners. No chest pain. 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 He denies any fevers or chills. He has had COVID-19 vaccinations. He does not know if he has had any sick contacts in the long term. On my rep arrival the patient was sleeping comfortably he reports no chest pain or shortness of breath. He is pleasant and states that he is feeling better than yesterday. He reports mild cough with no sputum production he was unable to void overnight with of residual of around 380 cc so Avalos was placed. He denies any penile pain or burning. He reports no past history for the need for catheterization. He denied chills fever or night sweats. He reports no abdominal pain. Objective Exam Vital Signs Vital Signs Date Time Temp Pulse Resp B/P (MAP) Pulse Ox O2 Delivery O2 Flow Rate FiO2 08/02/21 07:30 36.2 71 20 128/62 (84) 96 Nasal Cannula 3.00 Capillary Refill : Less Than 3 Seconds Results/Procedures Lab Laboratory Tests 08/02/21 06:20 Patient resulted labs reviewed. PADMINI ALONSO DO Aug 02, 2021 09:40
[2021-08-02] MEDS: AMOXICILLIN 500 MG (POLYMOX) CAP PO SCH ×2 (10:27→12:02)
[2021-08-02] MEDS ORDERED: ASPI-1238 PO (10:30)
[2021-08-02] MEDS ORDERED: AMOX500C2 PO (10:30)
--- NOTE | 2021-08-02 10:30 | Discharge Summary ---
Discharge Summary Hospital Course Was the Problem List Reviewed?: Yes Problems/Dx: (1) UTI (urinary tract infection) Status: Acute Qualifiers: Qualified Codes: N30.00 - Acute cystitis without hematuria (2) Elevated troponin I level Status: Acute Hospital Course Date of Admission: Aug 01, 2021 at 09:35 Admission Diagnosis : Family Physician/Provider: Andres Frazier MD Date of Discharge: 08/02/21 Discharge Diagnosis: UTI Enterococcus, ELevated troponin, chronic debility Hospital Course: Pt had an uneventful hospital course after he was admitted for UTI and elevated troponin with hypoxemia. He was found to have enterococcus on urine culture. Cardiology evaluated him to have no acute coronary syndrome signs so he was discharged back to [facility] on Amoxicillin for the enterococcus. Labs and Pending Lab Test: Laboratory Tests 08/02/21 06:20: White Blood Count 6.1, Red Blood Count 4.62, Hemoglobin 13.6, Hematocrit 41, Mean Corpuscular Volume 90, Mean Corpuscular Hemoglobin 29, Mean Corpuscular Hemoglobin Concent 33, Red Cell Distribution Width 14.6H, Platelet Count 236, Mean Platelet Volume 9.7, Immature Granulocyte % (Auto) 0, Neutrophils (%) (Auto) 69, Lymphocytes (%) (Auto) 17, Monocytes (%) (Auto) 7, Eosinophils (%) (Auto) 7, Basophils (%) (Auto) 0, Neutrophils # (Auto) 4.2, Lymphocytes # (Auto) 1.0, Monocytes # (Auto) 0.4, Eosinophils # (Auto) 0.4H, Basophils # (Auto) 0.0, Immature Granulocyte # (Auto) 0.0, Sodium Level 133L, Potassium Level 4.0, Chloride Level 98, Carbon Dioxide Level 25, Anion Gap 10, Blood Urea Nitrogen 13, Creatinine 1.16, Estimat Glomerular Filtration Rate 64, BUN/Creatinine Ratio 11, Glucose Level 105, Calcium Level 8.5, Corrected Calcium 9.4, Total Bilirubin 0.4, Aspartate Amino Transf (AST/SGOT) 19, Alanine Aminotransferase (ALT/SGPT) 12, Alkaline Phosphatase 67, Total Protein 6.5, Albumin 2.9L Microbiology 07/31/21 Blood Culture - Preliminary, Resulted No growth 07/31/21 Urine Culture - Preliminary, Resulted Enterococcus faecalis Home Meds Active Reported Levothyroxine Sodium 150 Mcg Tablet 150 Mcg PO DAILY Mucinex Dm ER 600-30 mg Tablet (Guaifenesin/Dextromethorphan) 1 Each Tab.er.12h 1 Each PO Q12H PRN Milk of Magnesia (Magnesium Hydroxide) 400 Mg/5 Ml Oral.susp 30 Mg PO DAILY PRN Biofreeze (Menthol) 118 Ml Gel..ml. 1 Applic TP Q6H PRN Acid Corn Husker Machine Operator (FAMOTIDINE) (Famotidine) 20 Mg Tablet 20 Mg PO BID Pantoprazole Sodium 40 Mg Tablet.dr 40 Mg PO DAILY Miralax (Polyethylene Glycol 3350) 17 Gm Powd.pack 17 Gm PO DAILY Trazodone HCl 50 Mg Tablet 50 Mg PO HS Oxycodone-Acetaminophen 10-325 (Oxycodone HCl/Acetaminophen) 1 Each Tablet 1 Each PO Q6H PRN MDD 3 Venlafaxine HCl ER (Venlafaxine HCl) 75 Mg Cap.er.24h 75 Mg PO DAILY Memantine HCl ER (Memantine HCl) 28 Mg Cap.spr.24 28 Mg PO DAILY Fluticasone Propionate 16 Gm [place].susp 1 [place] NSEACH DAILY Diltiazem HCl 60 Mg Tablet 60 Mg PO TID Amiodarone HCl 200 Mg Tablet 200 Mg PO DAILY Allopurinol 300 Mg Tablet 300 Mg PO DAILY Assessment/Pt Instructions [facility] rounds 1 week Discharge Planning: <30 minutes discharge planning Discharge Instructions Discharge Diet: No Restrictions Discharge Physical Examination Vital Signs Vital Signs Date Time Temp Pulse Resp B/P (MAP) Pulse Ox O2 Delivery O2 Flow Rate FiO2 08/02/21 07:30 36.2 71 20 128/62 (84) 96 Nasal Cannula 3.00 General Appearance: No Apparent Distress, WD/WN, Chronically ill Respiratory: Lungs Clear, Normal Breath Sounds Cardiovascular: Regular Rate, Rhythm Allergies: Coded Allergies: morphine (Verified Allergy, Unknown, 11/10/20) Discharge Summary Date of Admission Aug 01, 2021 at 09:35 Date of Discharge Discharge Date: Aug 02, 2021 Admission Diagnosis 1. Urinary tract infection with urinary obstruction requiring Avalos cathete rization. Continue IV antibiotics cultures pending. 2. Exam also suggest the possibility of pneumonia COVID-negative influenza negative continue antibiotics in this regard as well. 3. Non-ST segment elevation [place] likely type II [place] further work-up of per cardiology no evidence to suggest acute coronary syndrome at this time repeat troponin level back to normal. PADMINI ALONSO DO Aug 02, 2021 10:30
[2021-08-02 11:26] VITALS: BP 122/70
[2021-08-02] MEDS: ENOXAPARIN 300 MG/3 ML (LOVENOX) MULTI-DOSE VIAL SQ SCH (12:02)
--- NOTE | 2021-08-02 13:42 | Occupational Therapy Eval ---
OT Evaluation-General/PLF Medical Diagnosis Admission Date Aug 01, 2021 at 09:35 Medical Diagnosis: UTI, elevated troponin, hyoxemia Onset Date: Aug 01, 2021 Therapy Diagnosis Therapy Diagnosis: decreased ADL status Precautions Precautions/Isolations: Fall Prevention, Standard Precautions Referral Physician: Ron Garnica Reason: Evaluation/Treatment Medical History Pertinent Medical History: Atrial Fib, GERD, HTN Additional Medical History anxiety/depression Current History ED due to c/o decreased activity, SOB and weakness Social History Home: Snf ADL-Prior Level of Function SCALE: Activities may be completed with or without assistive devices. 0-Izbqkvnukr-uxmwpke completes the activity by him/herself with no assistance from a helper. 5-Set-up or Clean-up Assistance-helper sets up or cleans up; patient completes activity. [place] assists only prior to or following the activity. 4-Supervision or Touching Assistance-helper provides verbal cues and/or touching/steadying and/or contact guard assistance as patient completes activity. Assistance may be provided throughout the activity or intermittently. 3-Partial/Moderate Assistance-helper does LESS THAN HALF the effort. [place] lifts, holds or supports trunk or limbs, but provides less than half the effort. 2-Substantial/Maximal Assistance-helper does MORE THAN HALF the effort. [place] lifts or holds trunk or limbs and provides more than half the effort. 2-Kyessjxme-riskoe does ALL the effort. Patient does none of the effort to complete the activity. Or, the assistance of 2 or more helpers is required for the patient to complete the activity. If activity was not attempted, code reason: 7-Patient Refused. 9-Not Applicable-not attempted and the patient did not perform the activity before the current illness, exacerbation or injury. 10-Not Attempted due to Environmental Limitations-(lack of equipment, weather restraints, etc.). 88-Not Attempted due to Medical Conditions or Safety Concerns. ADL PLOF Comments Pt able to use walker for functional mobility around his room independently. He is independent with dressing and toileting, although it takes some time. Pt has supervision during showers and needs a little assistance with showering. Self Care: Needed Some Help Functional Cognition: Independent OT Current Status Subjective Pt in bed, states he is ready to return to [facility] today. Mental Status/Objective Patient Orientation: Person, Place, Situation Attachments: Oxygen Current Hand Dominance: Right Upper Extremity ROM Decreased bilaterally. RUE shoulder flexion to approx 15 degrees (states he broke this shoulder a few years ago), PROM to approx 90 degrees LUE shoulder flexion to approx 90 degrees. Upper Extremity Coordination WFL ADL-Treatment Eating (QC): 6 (Per pt report.) Oral Hygiene (QC): 5 (per clincial judgment.) Other Treatments Pt in bed, agreeable to OT tx. Pt provided information about PLOF and home set up and participated in UE screen. Pt declined getting up to the recliner, as he wanted to take a nap, agreeable to sitting on EOB. Pt transferred supine to sit EOB, min A with trunk. Pt sat EOB ~2 mins during UE assessment. Pt has decreased RUE shoulder function from previous fracture. He indicates he is waiting on pulleys to be delivered to use in his room at [facility]. LUE shoulder flexion to approx 90 degrees. After UE screen, pt requests to lay back down, transferred sit to supine with SBA. Post tx, pt in bed, call light in reach and all needs met. Education OT Patient Education: Correct positioning, Energy conservation, Exercise program, Modified ADL techniques, Progress toward Goal/Update tx plan, Purpose of tx/functional activities, Rehab process Teaching Recipient: Patient Teaching Methods: Discussion Response to Teaching: Verbalize Understanding OT Cinetechnician Goals Cinetechnician Goals Time Frame: Aug 09, 2021 Eating (QC): 6 Oral Hygiene (QC): 6 Toileting Hygiene (QC): 6 Shower/Bathe Self (QC): 3 Upper Body Dressing (QC): 5 Lower Body Dressing (QC): 5 On/Off Footwear (QC): 5 Additional Goals: 1-Demonstrate ADL Tasks, 2-Verbalize Understanding, 3-ImproveStrength/Elayne 1=Demonstrate adherence to instructed precautions during ADL tasks. 2=Patient will verbalize/demonstrate understanding of assistive devices/modifications for ADL. 3=Patient will improve strength/tolerance for activity to enable patient to perform ADL's. OT Education/Plan Problem List/Assessment Assessment: Decreased Activ Tolerance, Decreased UE Strength, Impaired I ADL's, Impaired Self-Care Skills, Restricted Funct UE ROM Discharge Recommendations Plan/Recommendations: Continue POC Treatment Plan/Plan of Care Patient would benefit from OT for education, treatment and training to promote independence in ADL's, mobility, safety and/or upper extremity function for ADL's. Plan of Care: ADL Retraining, Functional Mobility, UE Funct Exercise/Act Treatment Duration: Aug 09, 2021 Frequency: 3 times per week (3-5 times per week) Estimated Hrs Per Day: .25 hour per day Rehab Potential: Good Time/GCodes Start Time: 13:14 Stop Time: 13:24 Total Time Billed (hr/min): 10 Billed Treatment Time 1, CORY CHRISTIE OT Aug 02, 2021 13:42
[2021-08-02 14:51] VITALS: BP 122/70
--- NOTE | 2021-08-02 16:29 | Progress Note - Cardiology ---
Cardiology SOAP Progress Note Subjective: Feels better Malaise has improved No cp No palp or syncope Shortness of breath has improved Objective: I&O/Vital Signs 08/02/21 08/02/21 08/02/21 08/02/21 04:49 06:45 07:30 08:00 Temp 36.5 36.2 Pulse 69 64 71 Resp 20 20 B/P (MAP) 115/57 (76) 128/62 (84) Pulse Ox 95 96 96 O2 Delivery Nasal Cannula Nasal Cannula Nasal Cannula O2 Flow Rate 3.00 3.00 3.00 08/02/21 08/02/21 08/02/21 11:26 12:34 14:51 Temp 36.4 36.4 Pulse 63 69 69 Resp 20 20 B/P (MAP) 122/70 (87) 122/70 Pulse Ox 96 96 O2 Delivery Nasal Cannula Nasal Cannula O2 Flow Rate 3.00 3.00 08/01/21 23:59 Intake Total 390 ml Output Total 825 ml Balance -435 ml Constitutional: AAO x 3, well-developed, well-nourished Respiratory: No accessory muscle use; other (scattered rhonchi over large airways, coarse crackles at lung bases) Cardiovascular: regular rate-rhythm, S1 and S2, systolic murmur (soft DIPAK at card base) Gastrointestional: No tender; soft; No guarding, No rebound; audible bowel sounds Extremities: No clubbing, No cyanosis, No significant edema Neurologic/Psychiatric: oriented x 3, other (moves all limbs equally) Skin: No rash on exposed areas, No ulcerations on exposed areas Results/Procedures: Labs Laboratory Tests 08/02/21 06:20: White Blood Count 6.1, Red Blood Count 4.62, Hemoglobin 13.6, Hematocrit 41, Mean Corpuscular Volume 90, Mean Corpuscular Hemoglobin 29, Mean Corpuscular Hemoglobin Concent 33, Red Cell Distribution Width 14.6H, Platelet Count 236, Mean Platelet Volume 9.7, Immature Granulocyte % (Auto) 0, Neutrophils (%) (Auto) 69, Lymphocytes (%) (Auto) 17, Monocytes (%) (Auto) 7, Eosinophils (%) (Auto) 7, Basophils (%) (Auto) 0, Neutrophils # (Auto) 4.2, Lymphocytes # (Auto) 1.0, Monocytes # (Auto) 0.4, Eosinophils # (Auto) 0.4H, Basophils # (Auto) 0.0, Immature Granulocyte # (Auto) 0.0, Sodium Level 133L, Potassium Level 4.0, Chloride Level 98, Carbon Dioxide Level 25, Anion Gap 10, Blood Urea Nitrogen 13, Creatinine 1.16, Estimat Glomerular Filtration Rate 64, BUN/Creatinine Ratio 11, Glucose Level 105, Calcium Level 8.5, Corrected Calcium 9.4, Total Bilirubin 0.4, Aspartate Amino Transf (AST/SGOT) 19, Alanine Aminotransferase (ALT/SGPT) 12, Alkaline Phosphatase 67, Total Protein 6.5, Albumin 2.9L Microbiology 07/31/21 Blood Culture - Preliminary, Resulted No growth 07/31/21 Urine Culture - Preliminary, Resulted Enterococcus faecalis Laboratory Tests 08/01/21 05:51 08/02/21 06:20 A/P: Assessment: Lower resp tract infection / bronchopneumonia Minimal troponin elevation on first eval but the two subsequent were normal: No evidence of ACS RBBB on ECG of 07/31/20 UTI Plan: * Monitor labs * Treatment of UTI and suspected pneumonia is by the Hospitalist TREVOR Ovalle MD FACP FAC CCDS Aug 02, 2021 16:29
== END 2021-08-02 16:15 | DRG 690 ==
LOC: EDUNIT# 08:30 → ER 08:32 → 4TH 11:50 → OBSVTOIN 08-01 09:35
PROVIDERS: ADMIT Internal Medicine; ATTEND Internal Medicine
DX: N39.0 Urinary tract infection, site not specified (principal); N13.9 Obstructive and reflux uropathy, unspecified; J44.9 Chronic obstructive pulmonary disease, unspecified; I48.91 Unspecified atrial fibrillation; I10 Essential (primary) hypertension; K21.9 Gastro-esophageal reflux disease without esophagitis; F41.9 Anxiety disorder, unspecified; Z20.822 Contact with and (suspected) exposure to COVID-19; F32.A Depression, unspecified; R77.8 Other specified abnormalities of plasma proteins; B95.2 Enterococcus as the cause of diseases classified elsewhere; R09.02 Hypoxemia; Z87.891 Personal history of nicotine dependence; Z79.01 Long term (current) use of anticoagulants; Z79.899 Other long term (current) drug therapy
CPT/HCPCS: 36415; 36600; 71045; 80048; 80053; 80061; 81000; 82805; 83880; 84145; 84484; 85025; 85379; 85610; 86141; 87040; 87077; 87088; 87186; 87636; 93005; 93306; G0378

== ENCOUNTER 2022-03-07 15:53 | Inpatient (IN) | payer MEDICARE, MEDICAID ==
[~2022-03-07] VITALS: Ht 177.8 cm; Wt 118.0 kg
[~2022-03-07 15:53] MED LIST changes: +AMOX500C2 PO; +ASPI-1238 PO; +FAMO20TA3 PO; +GUAI-367 PO; +LEVO150C4 PO; +LEVO150T6 PO; +MAGN400O7 PO; +MENT118G TP; +PANT40TA52 PO; +POLY17PO6 PO; +TRZ50T PO
[2022-03-07] MEDS ORDERED: NS IV 1000 ML 1,000 ML IV SCH (16:15)
--- NOTE | 2022-03-07 16:20 | ED Respiratory ---
General Chief Complaint: Respiratory Problems Stated Complaint: SOB Nursing Triage Note: pt to room by [facility] from [facility]. pt reports sob and "cant get enough air." ems reports pt is always on 2L O2 and [facility] reports pt O2 sat was 92 on 2L. ems reports pt was bumped up to 4L O2 and has been satting 95% and above. pt is A&Ox2 on arrival. pt answering questions slowly, but appropriately. speech normal. [facility] reports pt had CXR and labs done yesterday with abnormalities Source: patient Exam Limitations: no limitations History of Present Illness Date Seen by Provider: Mar 07, 2022 Time Seen by Provider: 16:04 Initial Comments [facility] the [facility] with chief complaint that he is having shortness of air with oxygen saturation of 92%. They turned him up from 2 L to 4 L and his oxygen saturation went to 95%. The patient states he has had an occasional cough nonproductive. He is not having any fevers chills or increased pain. He has a little bit of nausea but no vomiting. No diarrhea constipation abdominal pain. When asked if there is anything he wants he says "yes, to get out of here." He is accompanied by some labs that were drawn this morning that demonstrate acute kidney injury with a creatinine that went from a baseline of 1.0-1.2 up to 2.8 today. His BUN is 63. He is on Lasix with a history of coronary disease. 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 He is followed by Dr. Clements for primary care. He states he did eat lunch and breakfast today and has a good appetite. He has a stimulator implanted and a history of a back fracture. He denies needing any more pain medicines than normal. He does not want a thing for pain right now. When the nurse asked the patient if he drinks or uses recreational drugs he replied, "put something in front of me and you will find out." Allergies and Home Medications Allergies Coded Allergies: morphine (Verified Allergy, Unknown, 11/10/20) Patient Home Medication List Home Medication List Reviewed: Yes Allopurinol (Allopurinol) 300 Mg Tablet, 300 MG PO DAILY, (Reported) Entered as Reported by: CONNIE SMITH on 01/03/21 1041 Amiodarone HCl (Amiodarone HCl) 200 Mg Tablet, 200 MG PO DAILY, (Reported) Entered as Reported by: CONNIE SMITH on 01/03/21 1041 Amoxicillin (Amoxicillin) 500 Mg Capsule, 500 MG PO TID Prescribed by: PADMINI ALONSO on 08/02/21 1030 Aspirin (Aspirin EC) 81 Mg Tablet.dr, 81 MG PO DAILY Prescribed by: PADMINI ALONSO on 08/02/21 1030 Diltiazem HCl (Diltiazem HCl) 60 Mg Tablet, 60 MG PO TID, (Reported) Entered as Reported by: CONNIE SMITH on 01/03/21 1041 Famotidine (Acid Mechanical Door Repairer (FAMOTIDINE)) 20 Mg Tablet, 20 MG PO BID, (Reported) Entered as Reported by: ANGELI TAY on 08/01/21 1534 Fluticasone Propionate (Fluticasone Propionate) 16 Gm [place].susp, 1 SPRAY NSEACH DAILY, (Reported) Entered as Reported by: CONNIE SMITH on 01/03/21 1041 Guaifenesin/Dextromethorphan (Mucinex Dm ER 600-30 mg Tablet) 1 Each Tab.er.12h, 1 EACH PO Q12H PRN for CONGESTION, (Reported) Entered as Reported by: ANGELI TAY on 08/01/21 1538 Levothyroxine Sodium (Levothyroxine Sodium) 150 Mcg Tablet, 150 MCG PO DAILY, (Reported) Entered as Reported by: ANGELI TAY on 08/01/21 1553 Magnesium Hydroxide (Milk of Magnesia) 400 Mg/5 Ml Oral.susp, 30 MG PO DAILY PRN for CONSTIPATION-1ST LINE, (Reported) Entered as Reported by: ANGELI TAY on 08/01/21 1537 Memantine HCl (Memantine HCl ER) 28 Mg Cap.spr.24, 28 MG PO DAILY, (Reported) Entered as Reported by: CONNIE SMITH on 01/03/21 1041 Menthol (Biofreeze) 118 Ml Gel..ml., 1 APPLIC TP Q6H PRN for PAIN-MILD (1-4), (Reported) Entered as Reported by: ANGELI TAY on 08/01/21 1536 Oxycodone HCl/Acetaminophen (Oxycodone-Acetaminophen 10-325) 1 Each Tablet, 1 EACH PO Q6H PRN for PAIN-MODERATE (5-7), (Reported) Entered as Reported by: CONNIE SMITH on 01/03/21 1041 Pantoprazole Sodium (Pantoprazole Sodium) 40 Mg Tablet.dr, 40 MG PO DAILY, (Reported) Entered as Reported by: ANGELI TAY on 08/01/21 1534 Polyethylene Glycol 3350 (Miralax) 17 Gm Powd.pack, 17 GM PO DAILY, (Reported) Entered as Reported by: ANGELI TAY on 08/01/21 1528 Trazodone HCl (Trazodone HCl) 50 Mg Tablet, 50 MG PO HS, (Reported) Entered as Reported by: Denisha Zelaya on 07/31/21 1444 Venlafaxine HCl (Venlafaxine HCl ER) 75 Mg Cap.er.24h, 75 MG PO DAILY, (Reported) Entered as Reported by: CONNIE SMITH on 01/03/21 1041 Review of Systems Review of Systems Constitutional: No chills, No diaphoresis EENTM: No ear discharge, No ear pain Respiratory: cough; No phlegm; short of breath Cardiovascular: No chest pain, No palpitations Gastrointestinal: No abdominal pain, No nausea Genitourinary: No discharge, No dysuria Musculoskeletal: back pain (Chronic); No joint pain Skin: No pruritus, No rash Psychiatric/Neurological: Denies Headache, Denies Numbness All Other Systems Reviewed Negative Unless Noted: Yes Past Rtxfiqy-Holocg-Anuaxe Hx Patient Social History Tobacco Use?: No Tobacco type used: Cigarettes Smoking Status: Former Smoker Use of E-Cig and/or Vaping dev: No Substance use?: No Immunizations Up To Date First/Initial COVID19 Vaccinat: UNKNOWN Second COVID19 Vaccination Jayce: UNKNOWN Third COVID19 Vaccination Date: UNKNOWN Seasonal Allergies Seasonal Allergies: No Past Medical History Surgeries: Yes Abdominal, Gallbladder Respiratory: No Cardiac: Yes Atrial Fibrillation, Hypertension Genitourinary: No Gastrointestinal: Yes Gastroesophageal Reflux, Ulcer Musculoskeletal: No Endocrine: No HEENT: No Cancer: No Psychosocial: Yes (DEMENTIA) Anxiety, Depression Integumentary: No Physical Exam Vital Signs - First Documented 03/07/22 15:55 Temp 36.4 Pulse 71 Resp 26 B/P (MAP) 118/77 (91) Pulse Ox 97 O2 Delivery Nasal Cannula O2 Flow Rate 2.00 Capillary Refill : Height: '" Weight: lbs. oz. kg; 38.00 BMI Method: General Appearance: moderate distress, obese Eyes: Bilateral Eye Normal Inspection, Bilateral Eye PERRL, Bilateral Eye EOMI HEENT: PERRL/EOMI, normal ENT inspection, TMs normal, pharynx normal Neck: full range of motion, supple, normal inspection Respiratory: lungs clear, normal breath sounds, no respiratory distress, no accessory muscle use, decreased breath sounds Cardiovascular: normal peripheral pulses, regular rate, rhythm Gastrointestinal: normal bowel sounds, non tender Progress/Results/Core Measures Suspected Sepsis SIRS Temperature: Pulse: 71 Respiratory Rate: 26 Laboratory Tests 03/07/22 15:59: White Blood Count 10.5 Blood Pressure 118 /77 Mean: 91 Laboratory Tests 03/07/22 15:59: Creatinine 2.96H, Platelet Count 287, Total Bilirubin 0.3 Results/Orders Lab Results Laboratory Tests Test 03/07/22 15:59 03/07/22 16:17 03/07/22 16:48 Range/Units White Blood Count 10.5 4.3-11.0 10^3/uL Red Blood Count 4.49 4.30-5.52 10^6/uL Hemoglobin 13.3 13.3-17.7 g/dL Hematocrit 42 40-54 % Mean Corpuscular Volume 94 80-99 fL Mean Corpuscular Hemoglobin 30 25-34 pg Mean Corpuscular Hemoglobin Concent 32 32-36 g/dL Red Cell Distribution Width 13.9 10.0-14.5 % Platelet Count 287 130-400 10^3/uL Mean Platelet Volume 9.3 9.0-12.2 fL Immature Granulocyte % (Auto) 0 % Neutrophils (%) (Auto) 76 H 42-75 % Lymphocytes (%) (Auto) 11 L 12-44 % Monocytes (%) (Auto) 6 0-12 % Eosinophils (%) (Auto) 7 0-10 % Basophils (%) (Auto) 0 0-10 % Neutrophils # (Auto) 7.9 H 1.8-7.8 X 10^3 Lymphocytes # (Auto) 1.2 1.0-4.0 X 10^3 Monocytes # (Auto) 0.6 0.0-1.0 X 10^3 Eosinophils # (Auto) 0.7 H 0.0-0.3 10^3/uL Basophils # (Auto) 0.0 0.0-0.1 10^3/uL Immature Granulocyte # (Auto) 0.0 0.0-0.1 10^3/uL Sodium Level 138 135-145 MMOL/L Potassium Level 4.7 3.6-5.0 MMOL/L Chloride Level 102 98-107 MMOL/L Carbon Dioxide Level 22 21-32 MMOL/L Anion Gap 14 5-14 MMOL/L Blood Urea Nitrogen 63 H 7-18 MG/DL Creatinine 2.96 H 0.60-1.30 MG/DL Estimat Glomerular Filtration Rate 21 BUN/Creatinine Ratio 21 Glucose Level 127 H 70-105 MG/DL Calcium Level 8.4 L 8.5-10.1 MG/DL Corrected Calcium 9.1 8.5-10.1 MG/DL Total Bilirubin 0.3 0.1-1.0 MG/DL Aspartate Amino Transf (AST/SGOT) 16 5-34 U/L Alanine Aminotransferase (ALT/SGPT) 12 0-55 U/L Alkaline Phosphatase 83 40-136 U/L C-Reactive Protein High Sensitivity 6.40 H 0.00-0.50 MG/DL B-Type Natriuretic Peptide 19.7 <100.0 PG/ML Total Protein 7.2 6.4-8.2 GM/DL Albumin 3.1 L 3.2-4.5 GM/DL Influenza Type A (RT-PCR) Not Detected Not Detecte Influenza Type B (RT-PCR) Not Detected Not Detecte SARS-CoV-2 RNA (RT-PCR) Not Detected Not Detecte Bedside Blood Gas pH (LAB) 7.266 *L 7.310-7.410 Bedside Blood Gas pCO2 (LAB) 51.3 H 41.0-51.0 mmHg Bedside Blood Gas pO2 (LAB) 93 80-105 mmHg Bedside Blood Gas HCO3 (LAB) 23.4 23.0-28.0 mmol/L POC Blood Gas Total CO2 Calc 25 24-29 mmol/L Bedside Bl Gas O2 Saturation (Calc) 96 95-98 % Bedside Arterial Blood Base Excess -4 L -2-3 mmol/L My Orders Orders - DANYELLE METZGER Ed Iv/Invasive Line Start (03/07/22 16:12) Ns Iv 1000 Ml (Sodium Chloride 0.9%) (03/07/22 16:15) Chest 1 View, Ap/Pa Only (03/07/22 16:12) Covid 19 Inhouse Test (03/07/22 16:12) Influenza A And B By Pcr (03/07/22 16:12) Cbc With Automated Diff (03/07/22 16:12) Comprehensive Metabolic Panel (03/07/22 16:12) Hs C Reactive Protein (03/07/22 16:12) Ondansetron Injection (Zofran Injectio (03/07/22 16:30) Arterial Blood Gas (03/07/22 16:45) Bnp [place] (03/07/22 17:32) Methylprednisolone Sod Succ (Solu-Medrol (03/07/22 18:00) Ed Admission (Communication) (03/07/22 18:25) Medications Given in ED Current Medications Medications Dose Ordered Sig/Julianne Route Start Time Stop Time Status Last Admin Dose Admin Methylprednisolone Sodium Succinate 125 mg ONCE ONCE IVP 03/07/22 18:00 03/07/22 18:01 DC 03/07/22 18:20 125 MG Ondansetron HCl 4 mg ONCE ONCE IVP 03/07/22 16:30 03/07/22 16:31 DC 03/07/22 16:25 4 MG Vital Signs/I&O 03/07/22 03/07/22 03/07/22 15:55 15:55 18:14 Temp 36.4 Pulse 71 68 Resp 26 22 B/P (MAP) 118/77 (91) Pulse Ox 97 98 O2 Delivery Nasal Cannula O2 Flow Rate 2.00 40.00 Capillary Refill : Blood Pressure Mean: 91 Progress Note : Time: 16:23 Progress Note We will get an ABG. The patient's oxygen sats as recorded here and reported appear to be normal. He is ordered for oxygen 2 to 4 L by nasal cannula as necessary. Since he is endorsing a cough we will get a chest x-ray and some labs to help us look for pneumonia. We will swab him for COVID and/or flu. He says he had a COVID swab yesterday but he is not aware of the results. Going to give him a liter of fluids for his acute kidney injury. Diagnostic Imaging Diagonstic Imaging: Xray Plain Films/CT/US/NM/MRI: chest Comments [facility]. [place], [place] NAME: CHRISTOS VILLA [facility] REC#: [id number] PT STATUS: ADM IN : 1940 PHYSICIAN: DANYELLE METZGER MD ADMIT DATE: 03/07/22/ICU Signed Date of Exam:03/07/22 CHEST 1 VIEW, AP/PA ONLY Indication: Shortness of breath. Time of Exam: 4:52 PM Correlation is made with prior chest 08/01/2021. Heart size normal. There are some interstitial changes in both lungs, acuity indeterminate. No parenchymal consolidation is seen. There is no effusion or pneumothorax. Spinal stimulator lead overlies the midline of the mid thoracic spine. Impression: There are some interstitial changes throughout both lungs. While this could be largely chronic, possibility of superimposed interstitial edema or pneumonia could produce this appearance. Dictated by: Dictated on workstation # [id number] Dict: 03/07/221708 Trans: 03/07/221855 CVB [id number] Interpreted by: MARK JENKINS MD Electronically signed by: MARK JENKINS MD 03/07/221855 Reviewed: Reviewed by Me Departure Communication (Admissions) Time/Spoke to Admitting Phy: 18:13 Discussed the case with Dr. Alonso who agrees to admit the patient to the ICU. She will do queued orders. Impression Primary Impression: COPD with exacerbation Additional Impression: Acute respiratory failure with hypercapnia Disposition: ADMITTED INPATIENT Condition: Stable Admissions Decision to Admit Reason: Admit from ER (General) Decision to Admit/Date: Mar 07, 2022 Time/Decision to Admit Time: 18:10 Departure-Patient Inst. Referrals: JC SANTOS MD (PCP/Family) Primary Care Physician DANYELLE METZGER Mar 07, 2022 16:20
[2022-03-07 16:21] LABS: BASOPHILS % (AUTO) 0 % (0-10); EOSINOPHILS # (AUTO) 0.7 10^3/uL (0.0-0.3); EOSINOPHILS % (AUTO) 7 % (0-10); HEMATOCRIT 42 % (40-54); HEMOGLOBIN 13.3 g/dL (13.3-17.7); LYMPHOCYTES # (AUTO) 1.2 X 10^3 (1.0-4.0); LYMPHOCYTES % (AUTO) 11 % (12-44); MEAN CORPUSCULAR HEMOGLOBIN 30 pg (25-34); MEAN CORPUSCULAR HGB CONC 32 g/dL (32-36); MEAN CORPUSCULAR VOLUME 94 fL (80-99); MEAN PLATELET VOLUME 9.3 fL (9.0-12.2); MONOCYTES # (AUTO) 0.6 X 10^3 (0.0-1.0); MONOCYTES % (AUTO) 6 % (0-12); NEUTROPHILS # (AUTO) 7.9 X 10^3 (1.8-7.8); NEUTROPHILS % (AUTO) 76 % (42-75); PLATELET COUNT 287 10^3/uL (130-400); WHITE BLOOD COUNT 10.5 10^3/uL (4.3-11.0)
[2022-03-07 16:26] LABS: ALBUMIN 3.1 GM/DL (3.2-4.5); POTASSIUM 4.7 MMOL/L (3.6-5.0)
[2022-03-07 16:28] LABS: CALCIUM 8.4 MG/DL (8.5-10.1)
[2022-03-07 16:29] LABS: TOTAL PROTEIN 7.2 GM/DL (6.4-8.2)
[2022-03-07 16:30] LABS: BILIRUBIN,TOTAL 0.3 MG/DL (0.1-1.0)
[2022-03-07] MEDS ORDERED: ONDANSETRON 4 MG/2 ML (SDV) Z0FRAN IVP ONE (16:30)
[2022-03-07 16:32] LABS: CREATININE SERUM 2.96 MG/DL (0.60-1.30)
--- NOTE | 2022-03-07 17:14 | Diagnostic Imaging Report ---
Indication: Shortness of breath. Time of Exam: 4:52 PM Correlation is made with prior chest 08/01/2021. Heart size normal. There are some interstitial changes in both lungs, acuity indeterminate. No parenchymal consolidation is seen. There is no effusion or pneumothorax. Spinal stimulator lead overlies the midline of the mid thoracic spine. Impression: There are some interstitial changes throughout both lungs. While this could be largely chronic, possibility of superimposed interstitial edema or pneumonia could produce this appearance. Dictated by: Dictated on workstation # [id number]
[2022-03-07] MEDS ORDERED: methylPREDNISolone 125 MG (Solu-MEDROL) VIAL IVP ONE (18:00)
[2022-03-07 19:45] VITALS: BP 129/65
[2022-03-07 20:00] VITALS: BP 133/73
[2022-03-07] MEDS ORDERED: ACETAMINOPHEN 325 MG TABLET PO PRN (20:15)
[2022-03-07] MEDS ORDERED: polyethylene glycoL POWDER 17 GM (MIRALAX) PACK PO PRN (20:15)
[2022-03-07] MEDS ORDERED: LACTULOSE SYRUP 10GM/15ML (ENULOSE) 30ML UDC PO PRN (20:15)
[2022-03-07] MEDS ORDERED: BISACODYL 10 MG SUPP (DULCOLAX) PR PRN (20:15)
[2022-03-07] MEDS ORDERED: MELATONIN 3 MG TABLET PO PRN (20:15)
[2022-03-07] MEDS ORDERED: MILK OF MAGNESIA 400 MG/5 ML 30 ML UDC PO PRN (20:15)
[2022-03-07] MEDS ORDERED: ONDANSETRON 4 MG (ZOFRAN) ORAL DISSOLVE TAB PO PRN (20:15)
[2022-03-07] MEDS ORDERED: NS IV 500 ML 500 ML IV PRN (20:15)
[2022-03-07] MEDS ORDERED: LIDOCAINE UROJET 2% GEL 10 ML PKG TOP ONE (20:15)
[2022-03-07] MEDS ORDERED: ONDANSETRON 4 MG/2 ML (SDV) Z0FRAN IV PRN (20:15)
[2022-03-07] MEDS ORDERED: guaiFENesin/CODEINE (ROBITUSSIN AC) 10ML UDC PO PRN (20:15)
[2022-03-07] MEDS ORDERED: ANTACID SUSP 30 ML UDC (MYLANTA) PO PRN (20:15)
[2022-03-07] MEDS ORDERED: ALPRAZolam 0.25 MG (XANAX) TAB PO PRN (20:15)
[2022-03-07] MEDS ORDERED: diphenhydrAMINE 50 MG/ML INJ (BENADRYL) IVP PRN (20:15)
[2022-03-07] MEDS ORDERED: diphenhydrAMINE 25 MG TAB (BENADRYL) PO PRN (20:15)
[2022-03-07] MEDS ORDERED: CALCIUM CARBONATE 500 MG (TUMS) TAB.CHEW PO PRN (20:15)
--- NOTE | 2022-03-07 20:31 | Tele-ICU Consult ---
History of Present Illness History of Present Illness Date Seen by Provider: Mar 07, 2022 Time Seen by Provider: 20:22 History of Present Illness 81 yo M came to ED with SOB, Has COPD, on home oxygen. Also found to have rising Cr baseline is 1.0, now 2.8, BUN 63, Hx of CAD, on Lasix, Initial ABG7. on 4 lpm NC CXR shows hyperinflation, mild increase in HS, mild congestion, prom pulmonary arteries PMH Fx spoine has spinal stimulator for pain ex smoker, In ED VS are ok, Allergies and Home Medications Allergies Coded Allergies: morphine (Verified Allergy, Unknown, 11/10/20) Home Medications Allopurinol 300 Mg Tablet, 300 MG PO DAILY, (Reported) Amiodarone HCl 200 Mg Tablet, 200 MG PO DAILY, (Reported) Amoxicillin 500 Mg Capsule, 500 MG PO TID Prescribed by: PADMINI ALONSO on 08/02/21 1030 Aspirin 81 Mg Tablet.dr, 81 MG PO DAILY Prescribed by: PADMINI ALONSO on 08/02/21 1030 Diltiazem HCl 60 Mg Tablet, 60 MG PO TID, (Reported) Famotidine 20 Mg Tablet, 20 MG PO BID, (Reported) Fluticasone Propionate 16 Gm [place].susp, 1 SPRAY NSEACH DAILY, (Reported) Guaifenesin/Dextromethorphan 1 Each Tab.er.12h, 1 EACH PO Q12H PRN for CONGESTION, (Reported) Levothyroxine Sodium 150 Mcg Tablet, 150 MCG PO DAILY, (Reported) Magnesium Hydroxide 400 Mg/5 Ml Oral.susp, 30 MG PO DAILY PRN for CONSTIPATION- 1ST LINE, (Reported) Memantine HCl 28 Mg Cap.spr.24, 28 MG PO DAILY, (Reported) Menthol 118 Ml Gel..ml., 1 APPLIC TP Q6H PRN for PAIN-MILD (1-4), (Reported) Oxycodone HCl/Acetaminophen 1 Each Tablet, 1 EACH PO Q6H PRN for PAIN-MODERATE (5-7), (Reported) Pantoprazole Sodium 40 Mg Tablet.dr, 40 MG PO DAILY, (Reported) Polyethylene Glycol 3350 17 Gm Powd.pack, 17 GM PO DAILY, (Reported) Trazodone HCl 50 Mg Tablet, 50 MG PO HS, (Reported) Venlafaxine HCl 75 Mg Cap.er.24h, 75 MG PO DAILY, (Reported) Past Medical/Social/Family Hx Patient Social History Tobacco Use?: No Tobacco type used: Cigarettes Smoking Status: Former Smoker Use of E-Cig and/or Vaping dev: No Substance use?: No Alcohol Use?: No Immunizations Up To Date First/Initial COVID19 Vaccinat: UNKNOWN Second COVID19 Vaccination Jayce: UNKNOWN Current Status Communicates: Verbally Primary Language: Somali Preferred Spoken Language: Somali Is interpretation needed?: No Review of Systems Constitutional: see HPI EENTM: see HPI Respiratory: see HPI Cardiovascular: see HPI Gastrointestinal: see HPI Genitourinary: see HPI Musculoskeletal: see HPI Skin: see HPI Psychiatric/Neurological: See HPI Focused Exam Height, Weight, BMI Height: '" Weight: lbs. oz. kg; 38.00 BMI Method: Exam Exam Patient acknowledged, consented, and participated in this virtual visit which was conducted using real time audio/video Vital Signs Date Time Temp Pulse Resp B/P (MAP) Pulse Ox O2 Delivery O2 Flow Rate FiO2 03/07/22 20:00 75 20 133/73 (93) 93 Nasal Cannula 4.00 03/07/22 19:53 56 03/07/22 19:47 67 111/66 95 Nasal Cannula 3.00 03/07/22 19:45 56 21 129/65 (86) Nasal Cannula 4.00 03/07/22 18:14 68 22 98 40.00 03/07/22 15:55 Nasal Cannula 2.00 03/07/22 15:55 36.4 71 26 118/77 (91) 97 Height & Weight Height: '" Weight: lbs. oz. kg; 38.00 BMI Method: General Appearance: Mild Distress Respiratory: Decreased Breath Sounds, Rhonci Cardiovascular: Regular Rate, Rhythm, No Edema Gastrointestinal: normal bowel sounds, non tender, soft Neurologic/Psychiatric: Alert, Disoriented, Other (disoriented to place, time) Results Lab Laboratory Tests 03/07/22 15:59 Assessment/Plan Assessment/Plan AECOPD, continue BiPAP bronchodilators, Cefepime, doxycycline, Got Medrol, follo w mental status, work of breathing Spoke with RN for physical exam Critical Care: Critically Ill Patient Time spent with patient (mins): 30 PRABHA BERNAL MD Mar 07, 2022 20:31
[2022-03-07 20:41] VITALS: BP 133/75
[2022-03-07 21:00] VITALS: BP 125/66
[2022-03-07] MEDS ORDERED: RT-ALBUTEROL/IPRATROPIUM 3 ML (DUONEB) VIAL INH PRN (21:15)
[2022-03-07] MEDS ORDERED: NS (IVPB) 50 ML ONE (21:31)
[2022-03-07] MEDS ORDERED: CEFEPIME 2 GM/20 ML (MAXIPIME) VIAL ONE (21:31)
[2022-03-07] MEDS ORDERED: NS IV 1000 ML 1,000 ML ONE (21:31)
[2022-03-07] MEDS: NS IV 1000 ML 1,000 ML IV SCH (21:42)
[2022-03-07] MEDS: CEFEPIME INJECTION 2,000 MG in NS (IVPB) 50 ML IV SCH (21:43)
[2022-03-07 22:00] VITALS: BP 124/65
[2022-03-07] MEDS ORDERED: DOXYCYCLINE 100 MG INJ (VIBRAMYCIN) ONE (22:23)
[2022-03-07] MEDS ORDERED: NS (IVPB) 100 ML ONE (22:23)
[2022-03-07] MEDS: DOXYCYCLINE INJECTION 100 MG in NS (IVPB) 100 ML IV SCH (22:28)
[2022-03-07] MEDS: inSUlin ASPART (NovoLOG) 1 UNIT/0.01 ML (CHARGE PER UNIT) SC SCH (22:29)
[2022-03-07] MEDS: DOCUSATE SODIUM 100 MG (COLACE) CAP PO SCH (22:31)
[2022-03-07] MEDS: SENNOSIDES 8.6 MG (SENOKOT) TAB PO SCH (22:31)
[2022-03-07 23:00] VITALS: BP 131/81
[2022-03-07] MEDS ORDERED: HYDROmorphone 2 MG/ML VIAL (DILAUDID) IV PRN (23:00)
[2022-03-08] VITALS (16 sets, daily range): BP systolic 95–146; BP diastolic 58–94
[2022-03-08] MEDS ORDERED: HALOPERIDOL 5 MG/ML (HALDOL) VIAL ONE (03:15)
--- NOTE | 2022-03-08 03:19 | Tele-ICU Progress Note ---
Subjective Date Seen by a Provider: Mar 08, 2022 Time Seen by a Provider: 03:18 Subjective/Events-last exam Confused and pulling at lines, recent ABG about same, will give 2 mg IV Haldol, last QTc interval 483 in 08/06 Sepsis Event Evaluation Height, Weight, BMI Height: '" Weight: lbs. oz. kg; 36.12 BMI Method: Exam Exam Patient acknowledged, consented, and participated in this virtual visit which was conducted using real time audio/video Vital Signs Date Time Temp Pulse Resp B/P (MAP) Pulse Ox O2 Delivery O2 Flow Rate FiO2 03/08/22 03:00 79 17 116/83 (94) 96 Nasal Cannula 4.00 03/08/22 02:00 72 12 124/67 (86) 96 Nasal Cannula 4.00 03/08/22 01:05 74 03/08/22 01:00 74 16 130/66 (87) 95 Nasal Cannula 4.00 03/08/22 00:26 Nasal Cannula 03/08/22 00:00 75 31 126/64 (84) 96 Nasal Cannula 4.00 03/07/22 23:00 75 20 131/81 (98) 97 Nasal Cannula 4.00 03/07/22 22:00 68 16 124/65 (84) 94 Nasal Cannula 4.00 03/07/22 21:00 71 24 125/66 (85) 96 Nasal Cannula 4.00 03/07/22 20:41 36.4 75 93 03/07/22 20:30 Nasal Cannula 03/07/22 20:00 75 20 133/73 (93) 93 Nasal Cannula 4.00 03/07/22 19:53 56 03/07/22 19:53 36.3 71 21 129/65 95 Nasal Cannula 4.00 03/07/22 19:47 67 111/66 95 Nasal Cannula 3.00 03/07/22 19:45 36.3 56 21 129/65 (86) Nasal Cannula 4.00 03/07/22 18:14 68 22 98 40.00 03/07/22 15:55 Nasal Cannula 2.00 03/07/22 15:55 36.4 71 26 118/77 (91) 97 I & O 03/08/22 07:00 Intake Total 1550 ml Output Total 800 ml Balance 750 ml Height & Weight Height: '" Weight: lbs. oz. kg; 36.12 BMI Method: General Appearance: Mild Distress Respiratory: Decreased Breath Sounds, Rhonci Cardiovascular: Regular Rate, Rhythm, No Edema Gastrointestinal: normal bowel sounds, non tender, soft Neurologic/Psychiatric: Alert, Disoriented, Other (disoriented to place, time) Results Lab Laboratory Tests 03/07/22 15:59 Assessment/Plan Assessment/Plan agitated, pulling at lines, will give 2 mg IV Haldol Critical Care: Critically Ill Patient Time spent with patient (mins): 15 PRABHA BERNAL MD Mar 08, 2022 03:19
[2022-03-08] MEDS ORDERED: HALOPERIDOL 5 MG/ML (HALDOL) VIAL IM ONE (03:30)
[2022-03-08] MEDS: RT-ALBUTEROL/IPRATROPIUM 3 ML (DUONEB) VIAL INH SCH ×2 (04:09→15:44)
[2022-03-08] MEDS: NS IV 1000 ML 1,000 ML IV SCH (04:18)
[2022-03-08 04:42] LABS: BASOPHILS % (AUTO) 0 % (0-10); EOSINOPHILS % (AUTO) 0 % (0-10); HEMATOCRIT 38 % (40-54); HEMOGLOBIN 12.2 g/dL (13.3-17.7); LYMPHOCYTES # (AUTO) 0.5 10^3/uL (1.0-4.0); LYMPHOCYTES % (AUTO) 6 % (12-44); MEAN CORPUSCULAR HEMOGLOBIN 30 pg (25-34); MEAN CORPUSCULAR HGB CONC 32 g/dL (32-36); MEAN CORPUSCULAR VOLUME 93 fL (80-99); MEAN PLATELET VOLUME 9.6 fL (9.0-12.2); MONOCYTES # (AUTO) 0.1 10^3/uL (0.0-1.0); MONOCYTES % (AUTO) 1 % (0-12); NEUTROPHILS # (AUTO) 8.7 10^3/uL (1.8-7.8); NEUTROPHILS % (AUTO) 93 % (42-75); PLATELET COUNT 229 10^3/uL (130-400); WHITE BLOOD COUNT 9.3 10^3/uL (4.3-11.0)
[2022-03-08 05:07] LABS: ALBUMIN 2.9 GM/DL (3.2-4.5); POTASSIUM 4.8 MMOL/L (3.6-5.0)
[2022-03-08 05:09] LABS: TOTAL PROTEIN 6.8 GM/DL (6.4-8.2)
[2022-03-08 05:11] LABS: BILIRUBIN,TOTAL 0.3 MG/DL (0.1-1.0)
[2022-03-08 05:13] LABS: CREATININE SERUM 2.42 MG/DL (0.60-1.30)
[2022-03-08 05:16] LABS: MAGNESIUM 1.9 MG/DL (1.6-2.4)
[2022-03-08] MEDS: POTASSIUM CL 10MEQ/50ML IVPB 50 ML IV SCH (05:44)
[2022-03-08] MEDS: inSUlin ASPART (NovoLOG) 1 UNIT/0.01 ML (CHARGE PER UNIT) SC SCH ×4 (05:44→20:38)
[2022-03-08 05:45] LABS: BAND NEUTROPHILS 1 %; LYMPHOCYTES % (MANUAL) 6 %; NEUTROPHILS % (MANUAL) 93 %; RBC MORPH NORMAL
[2022-03-08] MEDS ORDERED: KCL 20 MEQ TAB (K-DUR) PO SCH (06:00)
[2022-03-08] MEDS ORDERED: MAGNESIUM 1 GM/100 ML IVPB 100 ML IV SCH (06:00)
--- NOTE | 2022-03-08 07:16 | Diagnostic Imaging Report ---
History: Pneumonia TECHNIQUE: Frontal view the chest COMPARISON: 03/07/2022 FINDINGS: There is mild cardiomegaly with mild central vascular congestion. There are diffuse interstitial opacities which appear similar to the prior study. No consolidation is seen. There is no pneumothorax or large pleural effusion. IMPRESSION: 1. Cardiomegaly with central congestion and diffuse interstitial opacities, similar to the prior exam. Dictated by: Dictated on workstation # [id number]
[2022-03-08] MEDS: CEFEPIME INJECTION 2,000 MG in NS (IVPB) 50 ML IV SCH (08:50)
[2022-03-08] MEDS: DOCUSATE SODIUM 100 MG (COLACE) CAP PO SCH ×2 (08:50→20:36)
[2022-03-08] MEDS: SENNOSIDES 8.6 MG (SENOKOT) TAB PO SCH ×2 (08:50→20:35)
[2022-03-08] MEDS ORDERED: FAMOTIDINE 20MG/2ML IV (PEPCID) IVP SCH (09:00)
[2022-03-08] MEDS: ENOXAPARIN 40 MG/0.4 ML (LOVENOX) SYR SC SCH (09:00)
[2022-03-08] MEDS ORDERED: ENOXAPARIN INJECTION 30 MG/0.3 ML SYR SC SCH (09:00)
[2022-03-08] MEDS: DOXYCYCLINE INJECTION 100 MG in NS (IVPB) 100 ML IV SCH ×2 (09:27→20:38)
--- NOTE | 2022-03-08 09:30 | Physical Therapy Evaluation ---
PT Evaluation-General Medical Diagnosis Admission Date Mar 07, 2022 at 18:26 Medical Diagnosis: COPD exacerbation Onset Date: Mar 07, 2022 Therapy Diagnosis Therapy Diagnosis: impaired mobility Precautions Precautions/Isolations: Fall Prevention, Standard Precautions Weight Bear Status Right Lower Extremity: Right Weight Bearing/Tolerated Left Lower Extremity: Left Weight Bearing/Tolerated Referral Physician: Marleny Velasquez DO Reason for Referral: Evaluation/Treatment Medical History Pertinent Medical History: Atrial Fib, GERD, HTN Additional Medical History Past Medical History Surgeries: Yes Abdominal, Gallbladder Respiratory: No Cardiac: Yes Atrial Fibrillation, Hypertension Genitourinary: No Gastrointestinal: Yes Gastroesophageal Reflux, Ulcer Musculoskeletal: No Endocrine: No HEENT: No Cancer: No Psychosocial: Yes (DEMENTIA) Anxiety, Depression Integumentary: No Reviewed History: Yes Social History Home: Alf Entry Into Home: Level Entry Prior Prior Level of Function SCALE: Activities may be completed with or without assistive devices. 6-Mlglqqnevi-vcfvqne completes the activity by him/herself with no assistance from a helper. 5-Set-up or Clean-up Assistance-helper sets up or cleans up; patient completes activity. [place] assists only prior to or following the activity. 4-Supervision or Touching Assistance-helper provides verbal cues and/or touching/steadying and/or contact guard assistance as patient completes activity. Assistance may be provided throughout the activity or intermittently. 3-Partial/Moderate Assistance-helper does LESS THAN HALF the effort. [place] lifts, holds or supports trunk or limbs, but provides less than half the effort. 2-Substantial/Maximal Assistance-helper does MORE THAN HALF the effort. [place] lifts or holds trunk or limbs and provides more than half the effort. 0-Naxzkqttu-mrlkmo does ALL the effort. Patient does none of the effort to complete the activity. Or, the assistance of 2 or more helpers is required for the patient to complete the activity. If activity was not attempted, code reason: 7-Patient Refused. 9-Not Applicable-not attempted and the patient did not perform the activity before the current illness, exacerbation or injury. 10-Not Attempted due to Environmental Limitations-(lack of equipment, weather restraints, etc.). 88-Not Attempted due to Medical Conditions or Safety Concerns. Bed Mobility: 3 Transfers (B,C,W/C): 3 Gait: 3 Prior Devices Use: Walker PT Evaluation-Current Subjective Patient in bed pre tx, agrees to PT, has no complaints of pain. Pt/Family Goals "go home" Objective Patient Orientation: Person, Confused ROM/Strength ROM Lower Extremities WNL Strength Lower Extremities grossly 4/5 BLE Sensory Hearing: Functional Sensation Right Lower Extremit: Intact Sensation Left Lower Extremity: Intact Transfers Roll Left to Right (QC): 3 Lying to Sitting/Side of Bed(Q: 3 Sit to Stand (QC): 3 min assist for supine to sit, mod assist to stand from an elevated bed Gait Distance: 5' Gait Assistive Device: FWW Comments/Gait Description slumped posture, wide JEN, ambulated a few feet to the recliner Balance Sitting Static: Normal Sitting Dynamic: Normal Standing Static: Fair Standing Dynamic: Fair Treatment BLE seated exercises x20 (AP, LAQ) Assessment/Needs Patient in bedside chair post tx with nurse call, phone, tray, all needs met. Nurse states a chair alarm was not needed because patient calls her using the nurse call on a consistent basis. Rehab Potential: Fair PT Nursing Home Goals Nursing Home Goals PT Nursing Home Goals Time Frame: Mar 15, 2022 Roll Left & Right (QC): 6 Sit to Lying (QC): 6 Lying-Sitting on Side/Bed(QC): 6 Sit to Stand (QC): 4 Chair/Kjf-xa-Hwnnu Xfer(QC): 4 Walk 10 feet (QC): 4 PT Plan Problem List Problem List: Activity Tolerance, Functional Strength, Safety, Balance, Gait, Transfer, Bed Mobility, ROM Treatment/Plan Treatment Plan: Continue Plan of Care Treatment Plan: Bed Mobility, Education, Functional Activity Elayne, Functional Strength, Gait, Safety, Therapeutic Exercise, Transfers Treatment Duration: Mar 15, 2022 Frequency: 6 times per week Estimated Hrs Per Day: .25 hour per day Patient and/or Family Agrees t: Yes Safety Risks/Education Patient Education: Gait Training, Transfer Techniques, Correct Positioning, Safety Issues Teaching Recipient: Patient Teaching Methods: Demonstration, Discussion Response to Teaching: Reinforcement Needed Discharge Recommendations Plan Patient will perform bed mobility and transfer training, balance and endurance training ,functional strengthening, gait training, and education, to improve functional mobility and independence at home. Therapy Discharge Recommendati: Other, See Comments (NH) Time/GCodes Time In: 08 Time Out: 911 Total Billed Treatment Time: 15 Total Billed Treatment 1 visit MARYM 15' JARAD ANDERSON PT Mar 08, 2022 09:30
[2022-03-08] MEDS ORDERED: IBUP-1773 PO (09:57)
[2022-03-08] MEDS ORDERED: TRAZ150T72 PO (09:57)
[2022-03-08] MEDS ORDERED: LEVO175T5 PO (09:57)
[2022-03-08] MEDS ORDERED: CARB15DR OU (09:57)
[2022-03-08] MEDS ORDERED: NYST60PO TP (09:57)
[2022-03-08] MEDS ORDERED: OXYC20TA3 PO (09:57)
[2022-03-08] MEDS ORDERED: CARB1DRO36 OU (09:57)
[2022-03-08] MEDS ORDERED: FURO20TA4 PO (09:57)
[2022-03-08] MEDS ORDERED: MELA5TAB14 PO (09:57)
[2022-03-08] MEDS ORDERED: POTA10TA PO (09:57)
[2022-03-08] MEDS ORDERED: ALBU1.25 NEB (09:57)
[2022-03-08] MEDS ORDERED: ACET325T38 PO (09:57)
[2022-03-08] MEDS ORDERED: ONDA-105 PO (09:57)
[2022-03-08] MEDS ORDERED: FAMO20TA3 PO (09:57)
[2022-03-08] MEDS ORDERED: DOCU100C37 PO (09:57)
[2022-03-08] MEDS ORDERED: ASPI-1238 PO (09:57)
[2022-03-08] MEDS ORDERED: LOTE3.5O OD (09:57)
[2022-03-08] MEDS ORDERED: SODIUM BICARBONATE 8.4% VIAL 100 MEQ in 1/2 NS IV SOLUTION 1,000 ML IV SCH (10:00)
--- NOTE | 2022-03-08 10:04 | Tele-ICU Progress Note ---
Subjective Date Seen by a Provider: Mar 08, 2022 Time Seen by a Provider: 10:04 Subjective/Events-last exam (Tele-ICU Physician , Progress Note ) Available chart/ vitals / labs / Images reviewed Video assessment done using teleICU camera, rest of exam as per RN Discussed with RN Events overnight : Afebrile hemodynamically stable Respiratory - 4l I/O =1200 Drips: ns 125 Pressors- no Consultants: Hospital course: (03/07) Admitted a 81 y/o with COPD exacerbation, CAYETANO, possible PNA, BIPAP 27/11 03/08- resp acidosis corrected -> 4 L NC A/P Acute resp failure ( AECOPD ) - -NIPPV-> resp acidosis corrected -> 4 L NC AECOPD - steroids 125 given in ER - off now , no wheezing -0 to cont with nebs - nebs ( baseline chronic hypoxic resp failure - 2- 4 l O2 use ) CAYETANO, probable due to dehydratin with poor po intake - check UA - check CPK - cont IVF - slightly better - add bicarb - follow Metabolic and resp acidosis - due to above Confusion night 09/07- - given haldol ( last QTc interval 483 in 08/06 - now is AAO -? Possible PNA - started on cefepime and doxy 03/07- follow Hyperglycemia - due to stroids S/p shoulder Fr as per patient report - pain is under control Anemia - mild Lines : periph , (Central Line Necessity Reviewed) Avalos: void OG: Nutrition: Analgesia: Anxiety/ delirium VTE Prophylaxis: raj 40 Stress Ulcer Prophylaxis: Plans in collaboration with bedside consultants and IM MDs. Discussed with RN to reach out if any questions or concerns A total of 31 minutes of critical care time was devoted to this patient today, required to treat and/or prevent further deterioration of critical care condition ( as above ) . Sepsis Event Evaluation Height, Weight, BMI Height: '" Weight: lbs. oz. kg; 35.96 BMI Method: Exam Exam Patient acknowledged, consented, and participated in this virtual visit which was conducted using real time audio/video Vital Signs Date Time Temp Pulse Resp B/P (MAP) Pulse Ox O2 Delivery O2 Flow Rate FiO2 03/08/22 08:00 75 9 105/84 (91) 97 Nasal Cannula 4.00 03/08/22 07:39 75 03/08/22 07:00 74 11 127/71 (89) 96 Nasal Cannula 4.00 03/08/22 06:00 76 14 119/63 (81) 96 Nasal Cannula 4.00 03/08/22 05:00 80 13 131/69 (89) 95 Nasal Cannula 4.00 03/08/22 04:03 36.2 03/08/22 04:00 71 12 117/62 (80) 95 Nasal Cannula 4.00 03/08/22 03:30 Nasal Cannula 03/08/22 03:00 79 17 116/83 (94) 96 Nasal Cannula 4.00 03/08/22 02:00 72 12 124/67 (86) 96 Nasal Cannula 4.00 03/08/22 01:05 74 03/08/22 01:00 74 16 130/66 (87) 95 Nasal Cannula 4.00 03/08/22 00:26 Nasal Cannula 03/08/22 00:00 75 31 126/64 (84) 96 Nasal Cannula 4.00 03/08/22 00:00 36.7 03/07/22 23:00 75 20 131/81 (98) 97 Nasal Cannula 4.00 03/07/22 22:00 68 16 124/65 (84) 94 Nasal Cannula 4.00 03/07/22 21:00 71 24 125/66 (85) 96 Nasal Cannula 4.00 03/07/22 20:41 36.4 75 93 03/07/22 20:30 Nasal Cannula 03/07/22 20:00 75 20 133/73 (93) 93 Nasal Cannula 4.00 03/07/22 19:53 56 03/07/22 19:53 36.3 71 21 129/65 95 Nasal Cannula 4.00 03/07/22 19:47 67 111/66 95 Nasal Cannula 3.00 03/07/22 19:45 36.3 56 21 129/65 (86) Nasal Cannula 4.00 03/07/22 18:14 68 22 98 40.00 03/07/22 15:55 Nasal Cannula 2.00 03/07/22 15:55 36.4 71 26 118/77 (91) 97 I & O 03/08/22 06:59 Intake Total 2850 ml Output Total 1220 ml Balance 1630 ml Height & Weight Height: '" Weight: lbs. oz. kg; 35.96 BMI Method: General Appearance: Mild Distress Respiratory: Decreased Breath Sounds, Rhonci Cardiovascular: Regular Rate, Rhythm, No Edema Gastrointestinal: normal bowel sounds, non tender, soft Neurologic/Psychiatric: Alert, Disoriented, Other (disoriented to place, time) Results Lab Laboratory Tests 03/07/22 15:59 03/08/22 04:15 Assessment/Plan Assessment/Plan 1 EVELYN FLOOD MD Mar 08, 2022 10:04
[2022-03-08] MEDS ORDERED: NON-FORMULARY MEDICATION 1 EA EA (Oxycodone HCl 20 MG) PO PRN (10:15)
[2022-03-08] MEDS ORDERED: NON-FORMULARY MEDICATION 1 EA EA (Guaifenesin/Dextromethorphan (Mucinex Dm ER 600-30 mg Ta PO PRN (10:15)
[2022-03-08] MEDS ORDERED: NON-FORMULARY MEDICATION 1 EA EA (Menthol (Biofreeze) 1 APPLIC) TP PRN (10:15)
[2022-03-08] MEDS ORDERED: NYSTATIN TP PRN (10:15)
[2022-03-08] MEDS ORDERED: NON-FORMULARY MEDICATION 1 EA EA (Carboxymethylcellulose Sodium (Refresh Tears) 1 DROP) OU PRN (10:15)
[2022-03-08] MEDS ORDERED: KCL 10 MEQ TAB (MICRO K) PO PRN (10:15)
[2022-03-08] MEDS ORDERED: MILK OF MAGNESIA 400 MG/5 ML 30 ML UDC PO PRN (10:15)
[2022-03-08] MEDS ORDERED: ONDANSETRON 4 MG (ZOFRAN) ORAL DISSOLVE TAB PO PRN (10:45)
[2022-03-08] MEDS ORDERED: ARTIFICAL TEARS 0.4 ML UNIT DOSE (REFRESH PLUS) OU PRN (11:00)
[2022-03-08] MEDS ORDERED: MICONAZOLE 2% POWDER (DESENEX AF) 90 GM TOP PRN (11:00)
[2022-03-08] MEDS ORDERED: guaiFENesin (MUCINEX) 600 MG TAB PO PRN (11:00)
[2022-03-08] MEDS: ASPIRIN E.C. 81 MG (ECOTRIN) TAB PO SCH (11:16)
[2022-03-08] MEDS: FLUTICASONE NASAL SPRAY (FLONASE) 16 GM BTL NS SCH (11:16)
[2022-03-08] MEDS: AMIODARONE 200 MG (CORDARONE) TAB PO SCH (11:16)
[2022-03-08] MEDS: ALLOPURINOL 300 MG (ZYLOPRIM) TAB PO SCH (11:16)
[2022-03-08] MEDS: FAMOTIDINE 20 MG (PEPCID) TABLET PO SCH (11:17)
[2022-03-08] MEDS: VENlafaxine XR 75 MG (EFFEXOR XR) CAP PO SCH (11:17)
[2022-03-08] MEDS: methylPREDNISolone 125 MG (Solu-MEDROL) VIAL IVP SCH ×4 (11:22→23:41)
--- NOTE | 2022-03-08 13:11 | Occ Therapy Progress Note ---
Therapy Progress Note OT orders received and chart reviewed. Attempt at OT eval. Pt often interrupting therapist asking where his food is at. "Do. You. Cook?" asked several times. "You need to make my meal and give it to me now." Therapist unable to redirect patient. OT evaluation not completed at this time. OT to attempt again 03/09/22 if medically appropriate. Ju Dickinson OT Mar 08, 2022 13:11
--- NOTE | 2022-03-08 13:15 | History & Physical-Hospitalist ---
ROSEMARY MCCLELLAND 03/08/22 1315: History of Present Illness HPI/Chief Complaint [place] is a 81y/o w/ a PMH of COPD and dementia who presented to the ED yesterday due to SOB. Pt reports that he has been having SOB for about a week. Yesterday his SOB worsened. He was having some nausea and an occasional productive cough. Denies any vomiting. SpO2 was taken by staff at [facility] and he was at 92% on his normal 2L of O2 via NC. They increased his O2 to 4L and his saturations increased to 95%. It was at this point that he was taken into the ED. Today pt reports that he is breathing much better than yesterday. Says that his SOB has improved. Did use BiPAP last night. Cough has improved and is no longer productive. No longer having nausea. Reports that he has had episodes like this in the past. Source: patient, other (ED records) Date Seen 03/08/22 Attending Physician Andres Frazier MD PCP Admitting Physician: Marleny Alonso DO Attending Physician: Marleny Alonso DO Referring Physician Date of Admission Mar 07, 2022 at 18:26 Home Medications & Allergies Home Medications Reviewed patient Home Medication Reconciliation performed by pharmacy medication reconciliations voice intercept technician and/or nursing. Patients Allergies have been reviewed. Allergies Allergies Coded Allergies morphine (Verified Allergy, Unknown, 11/10/20) Past Rryrhtc-Nstmbj-Fswuyz Hx Patient Social History Living Status: lives at [facility] Tobacco Use?: No Tobacco type used: Cigarettes Smoking Status: Former Smoker Use of E-Cig and/or Vaping dev: No Substance use?: No Alcohol Use?: No Immunizations Up To Date First/Initial COVID19 Vaccinat: UNKNOWN Second COVID19 Vaccination Jayce: UNKNOWN Seasonal Allergies Seasonal Allergies: No Current Status Communicates: Verbally Primary Language: Khmer Preferred Spoken Language: Khmer Is interpretation needed?: No Past Medical History Surgeries: Abdominal, Gallbladder Atrial Fibrillation, Hypertension Gastroesophageal Reflux, Ulcer Anxiety, Depression Review of Systems Constitutional: No chills, No fever EENTM: No blurred vision, No double vision, No eye pain Respiratory: cough, short of breath Cardiovascular: No chest pain, No palpitations Gastrointestinal: No abdominal pain, No nausea, No vomiting Genitourinary: No dysuria, No hematuria Musculoskeletal: No back pain, No joint pain Psychiatric/Neurological: Denies Headache, Denies Numbness, Denies Paresthesia Physical Exam Physical Exam Vital Signs Vital Signs - First Documented 03/07/22 15:55 Temp 36.4 Pulse 71 Resp 26 B/P (MAP) 118/77 (91) Pulse Ox 97 O2 Delivery Nasal Cannula O2 Flow Rate 2.00 Capillary Refill : Height, Weight, BMI Height: '" Weight: lbs. oz. kg; 35.96 BMI Method: General Appearance: No Apparent Distress, Obese HEENT: PERRL/EOMI; No Photophobia Neck: Non Tender, Supple Respiratory: Decreased Breath Sounds (diffuse) Cardiovascular: Regular Rate, Rhythm, No Murmur, Normal Peripheral Pulses Gastrointestinal: Non Tender, Soft Extremity: Non Tender, No Calf Tenderness Neurologic/Psychiatric: Alert; No Oriented x3 (not oriented to time) Skin: Normal Color, Warm/Dry Lymphatic: No Adenopathy Results Results/Procedures Labs Laboratory Tests 03/07/22 15:59 03/08/22 04:15 Patient resulted labs reviewed. Assessment/Plan Admission Diagnosis COPD exacebation Acute on chronic respiratory distress CAYETANO HTN Dementia Hypotension Anxiety Depression Assessment and Plan COPD exacebation Acute on chronic respiratory distress -ABG: pH 7.3, CO2 41.8, O2 66 today -Duonebs -Cefepime and doxycycline, will also cover possible PNA seen on CXR -Solumedrol 62.5mg Q6H -BiPAP as needed -continue supplemental O2 CAYETANO -BUN 62, Cr 2.24, normal Cr for him is 1-1.2 -Possibly due to dehydration, treated w/ IVF initially, will need adequate oral intake -Repeat RFTs tomorrow morning HTN -resume home meds Dementia -episode of agitation last night requiring haldol -start home meds Hypothyroidism -resume home meds Depression Anxiety -start home meds DVT prophylaxis: lovenox and SCDs Diet: regular Code status: full code Moved to 4th floor from ICU MARLENY ALONSO 03/08/22 2020: History of Present Illness HPI/Chief Complaint CC: SOB HPI: This is a 81 yr old male fpc pt at [facility]. He presented with SOB and was found to have exacerbation of COPD. ABG is 7.3//. Transferring pt to 4th floor since he is much improved. Source: patient Exam Limitations: clinical condition Time Seen by a Provider: 10:00 Past Khxmayk-Ctbnxo-Ydrpst Hx Patient Social History Marrital Status: single Employed/Student: retired Tobacco Use?: Yes Tobacco type used: Cigarettes Review of Systems Constitutional: see HPI, malaise, weakness Respiratory: cough, dyspnea on exertion Physical Exam Physical Exam General Appearance: No Apparent Distress, Chronically ill, Obese Respiratory: No Accessory Muscle Use, Decreased Breath Sounds (diffuse) Cardiovascular: Regular Rate, Rhythm Assessment/Plan Admission Diagnosis Moved to fourth floor IV steroids IV antibiotics Cardiology eval Admission Status: Inpatient Order (span 2 midnights) Reason for Inpatient Admission: Respiratory failure Supervisory-Addendum Brief Verification & Attestation Participated in pt care: history, MDM, physical Personally performed: exam, history, MDM, supervision of care Care discussed with: Medical Student Procedures: n/a Results interpretation: Verified all documentation Verification and Attestation of Medical Student E/M Service A medical student performed and documented this service in my presence. I reviewed and verified all information documented by the medical student and made modifications to such information, when appropriate. I personally performed the physical exam and medical decision making. Marleny Alonso, Mar 08, 2022,20:20 ROSEMARY MCCLELLAND Mar 08, 2022 13:15 MARLENY ALONSO DO Mar 08, 2022 20:20
[2022-03-08] MEDS ORDERED: RT-ALBUTEROL/IPRATROPIUM 3 ML (DUONEB) VIAL INH PRN (16:00)
[2022-03-08] MEDS ORDERED: NON-FORMULARY MEDICATION 1 EA EA (Melatonin 5 MG) PO SCH (21:00)
[2022-03-08] MEDS ORDERED: LOTEPREDNOL ETABONATE OD SCH (21:00)
[2022-03-08] MEDS ORDERED: traZODone 150 MG (DESYREL) TABLET PO SCH (21:00)
[2022-03-08] MEDS ORDERED: MELATONIN 10 MG TABLET PO SCH (21:00)
[2022-03-08] MEDS: CEFEPIME 1,000 MG/NS 50 ML IVPB IV SCH ×2 (22:02)
[2022-03-09 00:49] VITALS: BP 126/63
[2022-03-09 04:06] VITALS: BP 158/72
[2022-03-09] MEDS: CEFEPIME 1,000 MG/NS 50 ML IVPB IV SCH ×2 (05:33)
[2022-03-09] MEDS: methylPREDNISolone 125 MG (Solu-MEDROL) VIAL IVP SCH ×2 (05:34→12:24)
[2022-03-09] MEDS: inSUlin ASPART (NovoLOG) 1 UNIT/0.01 ML (CHARGE PER UNIT) SC SCH ×2 (06:03→12:16)
[2022-03-09 06:30] LABS: BASOPHILS % (AUTO) 0 % (0-10); EOSINOPHILS % (AUTO) 0 % (0-10); HEMATOCRIT 38 % (40-54); HEMOGLOBIN 12.3 g/dL (13.3-17.7); LYMPHOCYTES # (AUTO) 1.1 10^3/uL (1.0-4.0); LYMPHOCYTES % (AUTO) 10 % (12-44); MEAN CORPUSCULAR HEMOGLOBIN 30 pg (25-34); MEAN CORPUSCULAR HGB CONC 33 g/dL (32-36); MEAN CORPUSCULAR VOLUME 91 fL (80-99); MEAN PLATELET VOLUME 9.3 fL (9.0-12.2); MONOCYTES # (AUTO) 0.1 10^3/uL (0.0-1.0); MONOCYTES % (AUTO) 1 % (0-12); NEUTROPHILS % (AUTO) 89 % (42-75); PLATELET COUNT 262 10^3/uL (130-400); WHITE BLOOD COUNT 11.3 10^3/uL (4.3-11.0)
[2022-03-09] MEDS ORDERED: LEVOTHYROXINE 50 MCG (LEVOTHROID) TAB PO SCH (06:30)
[2022-03-09 07:01] LABS: POTASSIUM 4.3 MMOL/L (3.6-5.0)
[2022-03-09 07:03] LABS: CALCIUM 8.5 MG/DL (8.5-10.1)
[2022-03-09 07:04] LABS: TOTAL PROTEIN 6.7 GM/DL (6.4-8.2)
[2022-03-09] MEDS: POTASSIUM CL 10MEQ/50ML IVPB 50 ML IV SCH (07:04)
[2022-03-09 07:06] LABS: BILIRUBIN,TOTAL 0.3 MG/DL (0.1-1.0)
[2022-03-09 07:07] LABS: CREATININE SERUM 1.4 MG/DL (0.60-1.30)
--- NOTE | 2022-03-09 07:58 | Diagnostic Imaging Report ---
INDICATION: Pneumonia. Comparison is made with prior examination 03/08/2022 FINDINGS: There is cardiomegaly. There is some venous congestion. Some patchy bibasilar infiltrates. There is no pleural effusion or pneumothorax. Mediastinum is unremarkable. IMPRESSION: Patchy bibasilar infiltrates. Cardiomegaly and some central pulmonary venous congestion. Dictated by: Dictated on workstation # [id number]
[2022-03-09 08:00] VITALS: BP 161/79
[2022-03-09] MEDS: FLUTICASONE NASAL SPRAY (FLONASE) 16 GM BTL NS SCH (08:57)
[2022-03-09] MEDS: SENNOSIDES 8.6 MG (SENOKOT) TAB PO SCH (08:58)
[2022-03-09] MEDS: ASPIRIN E.C. 81 MG (ECOTRIN) TAB PO SCH (08:58)
[2022-03-09] MEDS: FAMOTIDINE 20 MG (PEPCID) TABLET PO SCH (08:58)
[2022-03-09] MEDS: ALLOPURINOL 300 MG (ZYLOPRIM) TAB PO SCH (08:58)
[2022-03-09] MEDS: VENlafaxine XR 75 MG (EFFEXOR XR) CAP PO SCH (08:58)
[2022-03-09] MEDS: AMIODARONE 200 MG (CORDARONE) TAB PO SCH (08:59)
[2022-03-09] MEDS: ENOXAPARIN 40 MG/0.4 ML (LOVENOX) SYR SC SCH (08:59)
[2022-03-09] MEDS: DOCUSATE SODIUM 100 MG (COLACE) CAP PO SCH (08:59)
[2022-03-09] MEDS: polyethylene glycoL POWDER 17 GM (MIRALAX) PACK PO SCH ×2 (08:59→09:04)
[2022-03-09] MEDS ORDERED: MEMANTINE HCL 28 MG PO SCH (09:00)
[2022-03-09] MEDS ORDERED: MEMANTINE 10 MG (NAMENDA) TABLET PO SCH (09:00)
[2022-03-09] MEDS ORDERED: DOXYCYCLINE 100 MG (VIBRAMYCIN) TABLET PO SCH (09:00)
[2022-03-09] MEDS ORDERED: CEFD300C3 PO (11:53)
[2022-03-09] MEDS ORDERED: PRED10TA22 PO (11:53)
[2022-03-09] MEDS ORDERED: DOXY100T2 PO (11:53)
--- NOTE | 2022-03-09 11:54 | Discharge Inst-Skilled Nursing ---
Discharge Inst-Skilled NF Reconcile Patient Problems Problems Reviewed?: Yes Chief Complaint CC: SOB HPI: This is a 81 yr old male fpc pt at [facility]. He presented with SOB and was found to have exacerbation of COPD. ABG is 7.3/. Transferring pt to 4th floor since he is much improved. Patient Instructions Patient Problems: PNA COPD Goal: [place] Consult/Follow Up/Orders Follow Up Appt.: PCP 1 week Skilled NF Admit to: Certification (SNF) I certify that SNF services are required to be given on an inpatient basis because of the above named patient's need for intermediate care on a continuing basis for the conditions(s) for which he/she was receiving inpatient hospital services prior to his/her transfer to the SNF. [facility] Facility Order: Nursing Services, Fuel Cell Binder-Evaluate & Treat, Physical Therapy-Evaluate & Treat Oxygen Delivery Method: Nasal Cannula Discharge Diet: No Restrictions Resuscitation Status: Full Code New & Resume Previous Orders New Medications: Cefdinir (Cefdinir) 300 Mg Capsule 300 MG PO BID, #10 CAP Prednisone (Prednisone) 10 Mg Tab.ds.pk 10 MG PO DAILY, #21 PKG Take 6 tabs(60mg)daily,decrease by 1 tab(10MG)daily. Doxycycline Hyclate (Doxycycline Hyclate) 100 Mg Tablet 100 MG PO BID, #10 TAB Continued Medications: Acetaminophen (Tylenol) 325 Mg Tablet 650 MG PO Q6 -8H PRN for PAIN-MILD (1-4), TAB Albuterol Sulfate (Albuterol Sulfate) 1.25 Mg/3 Ml Vial.neb 3 ML NEB TID PRN for SHORTNESS OF BREATH, EA Allopurinol (Allopurinol) 300 Mg Tablet 300 MG PO DAILY, TAB Amiodarone HCl (Amiodarone HCl) 200 Mg Tablet 200 MG PO DAILY, TAB Aspirin (Aspirin EC) 81 Mg Tablet.dr 81 MG PO DAILY, TAB Carboxymethyl/Gly/Poly80/Pf (Refresh Optive [place]-3 Drops) 0.5 %-1 %-0.5 % Droperette 1 EACH OU QID, DROP Carboxymethylcellulose Sodium (Refresh Tears) 0.5 % Drops 1 DROP OU Q12H PRN for DRY EYES, DROPS Diltiazem HCl (Diltiazem HCl) 60 Mg Tablet 60 MG PO TID, TAB HOLD FOR SBP LESS THAN 100 Docusate Sodium (Docusate Sodium) 100 Mg Capsule 100 MG PO BID, CAP Famotidine (Acid Outside Salesman (FAMOTIDINE)) 20 Mg Tablet 20 MG PO BID, TAB Fluticasone Propionate (Fluticasone Propionate) 50 Mcg/Actuation [place].susp 1 SPRAY NSEACH DAILY, SPRAY Furosemide (Furosemide) 20 Mg Tablet 20 NG PO DAILY PRN for EDEMA, TAB Guaifenesin/Dextromethorphan (Mucinex Dm ER 600-30 mg Tablet) 1 Each Tab.er.12h 1 EACH PO Q12H PRN for CONGESTION, TAB Levothyroxine Sodium (Levothyroxine Sodium) 175 Mcg Tablet 175 MCG PO DAILY, TAB Loteprednol Etabonate (Lotemax) 0.5 % Oint...g. 1 EA OD HS, EA APPLY 1 CENTIMETER- LAST DOSE SCHEDULED 03-08-2022 Magnesium Hydroxide (Milk of Magnesia) 400 Mg/5 Ml Oral.susp 30 ML PO DAILY PRN for CONSTIPATION-7TH LINE, ML Melatonin (Melatonin) 5 Mg Tablet 5 MG PO HS, TAB Memantine HCl (Memantine HCl ER) 28 Mg Cap.spr.24 28 MG PO DAILY, CAP Menthol (Biofreeze) 4 % Gel..ml. 1 APPLIC TP Q6H PRN for PAIN-BREAKTHROUGH, EA Nystatin (Nystop) 100,000 Unit/Gram Powder 1 APPLIC TP Q6H PRN for GAULDING, EA APPLY TO SKIN FOLDS Ondansetron HCl (Ondansetron HCl) 4 Mg Tablet 4 MG PO Q6H PRN for NAUSEA/VOMITING-1ST LINE, TAB Oxycodone HCl (Oxycodone HCl) 20 Mg Tablet 20 MG PO TID PRN for PAIN-SEVERE (8-10), TAB Polyethylene Glycol 3350 (Miralax) 17 Gm Powd.pack 17 GM PO DAILY, EACH Potassium Chloride (K-Tab ER) 10 Meq Tablet.er 10 MEQ PO DAILY PRN for EDEMA (WHEN TAKING FUROSEMIDE), TAB Trazodone HCl (Trazodone HCl) 150 Mg Tablet 150 MG PO HS, TAB Venlafaxine HCl (Venlafaxine HCl ER) 75 Mg Cap.er.24h 75 MG PO DAILY, CAP Discontinued Medications: Ibuprofen (Ibuprofen) 600 Mg Tablet 600 MG PO TID, TAB Marleny S Velasquez Mar 09, 2022 11:53 MARLENY VELASQUEZ DO Mar 09, 2022 11:54
--- NOTE | 2022-03-09 11:54 | Discharge Summary ---
Discharge Summary Hospital Course Was the Problem List Reviewed?: Yes Problems/Dx: (1) Acute respiratory failure with hypercapnia Status: Acute (2) COPD with exacerbation Status: Acute Hospital Course Date of Admission: Mar 07, 2022 at 18:26 Admission Diagnosis : Family Physician/Provider: Andres Frazier MD Date of Discharge: 03/09/22 Discharge Diagnosis: Acute on chronic respiratory failure with hypoxemia Hospital Course: Hospital course: Won Mills is a 81y/o w/ a PMH of COPD and dementia who presented to the ED on 03/07 due to SOB. He was found to have have a COPD exacerbation and possible PNA seen on CXR. Started on duonebs, solumedrol, cefepime and doxycycline after admission. BUN and Cr were elevated and was started on IVF. The night he was admitted he did have an episode of agitation that required haldol. Today (03/09) his SOB has improved and he is ready to go back to the long term. Home oxygen study done showing he will need to be discharged on 4L constantly, up from the 2L he was needing prior to admission. Kidney function has improved. Prednisone, cefdiner, and doxycycline Rx given for him to continue as outpt. ROSEMARY MCCLELLAND Labs and Pending Lab Test: Laboratory Tests 03/08/22 15:45: Glucometer 145H 03/08/22 20:16: Glucometer 154H 03/09/22 05:45: Glucometer 149H 03/09/22 06:23: White Blood Count 11.3H, Red Blood Count 4.11L, Hemoglobin 12.3L, Hematocrit 38L , Mean Corpuscular Volume 91, Mean Corpuscular Hemoglobin 30, Mean Corpuscular Hemoglobin Concent 33, Red Cell Distribution Width 13.7, Platelet Count 262, Mean Platelet Volume 9.3, Immature Granulocyte % (Auto) 1, Neutrophils (%) (Auto) 89H, Lymphocytes (%) (Auto) 10L, Monocytes (%) (Auto) 1, Eosinophils (%) (Auto) 0, Basophils (%) (Auto) 0, Neutrophils # (Auto) 10.0H, Lymphocytes # (Auto) 1.1, Monocytes # (Auto) 0.1, Eosinophils # (Auto) 0.0, Basophils # (Auto) 0.0, Immature Granulocyte # (Auto) 0.1, Sodium Level 141, Potassium Level 4.3, Chloride Level 109H, Carbon Dioxide Level 20L, Anion Gap 12, Blood Urea Nitrogen 47H, Creatinine 1.40H, Estimat Glomerular Filtration Rate 51, BUN/Creatinine Ratio 34, Glucose Level 153H, Calcium Level 8.5, Corrected Calcium 9.3, Total Bilirubin 0.3, Aspartate Amino Transf (AST/SGOT) 17, Alanine Aminotransferase (ALT/SGPT) 12, Alkaline Phosphatase 68, Total Protein 6.7, Albumin 3.0L, Smear Scan 03/09/22 10:49: Glucometer 152H Home Meds Active Prednisone 10 Mg Tab.ds.pk 10 Mg PO DAILY Take 6 tabs(60mg)daily,decrease by 1 tab(10MG)daily. Cefdinir 300 Mg Capsule 300 Mg PO BID Doxycycline Hyclate 100 Mg Tablet 100 Mg PO BID Reported Ondansetron HCl 4 Mg Tablet 4 Mg PO Q6H PRN Tylenol (Acetaminophen) 325 Mg Tablet 650 Mg PO Q6 -8H PRN Refresh Tears (Carboxymethylcellulose Sodium) 0.5 % Drops 1 Drop OU Q12H PRN K-Tab ER (Potassium Chloride) 10 Meq Tablet.er 10 Meq PO DAILY PRN Oxycodone HCl 20 Mg Tablet 20 Mg PO TID PRN Nystop (Nystatin) 100,000 Unit/Gram Powder 1 Applic TP Q6H PRN APPLY TO SKIN FOLDS Furosemide 20 Mg Tablet 20 Ng PO DAILY PRN Albuterol Sulfate 1.25 Mg/3 Ml Vial.neb 3 Ml NEB TID PRN Refresh Optive [place]-3 Drops (Carboxymethyl/Gly/Poly80/Pf) 0.5 %-1 %-0.5 % Droperette 1 Each OU QID Ibuprofen 600 Mg Tablet 600 Mg PO TID Acid Laster Hand (FAMOTIDINE) (Famotidine) 20 Mg Tablet 20 Mg PO BID Docusate Sodium 100 Mg Capsule 100 Mg PO BID Trazodone HCl 150 Mg Tablet 150 Mg PO HS Melatonin 5 Mg Tablet 5 Mg PO HS Lotemax (Loteprednol Etabonate) 0.5 % Oint...g. 1 Ea OD HS APPLY 1 CENTIMETER- LAST DOSE SCHEDULED 03-08-2022 Levothyroxine Sodium 175 Mcg Tablet 175 Mcg PO DAILY Aspirin EC (Aspirin) 81 Mg Tablet.dr 81 Mg PO DAILY Mucinex Dm ER 600-30 mg Tablet (Guaifenesin/Dextromethorphan) 1 Each Tab.er.12h 1 Each PO Q12H PRN Milk of Magnesia (Magnesium Hydroxide) 400 Mg/5 Ml Oral.susp 30 Ml PO DAILY PRN Biofreeze (Menthol) 4 % Gel..ml. 1 Applic TP Q6H PRN Miralax (Polyethylene Glycol 3350) 17 Gm Powd.pack 17 Gm PO DAILY Venlafaxine HCl ER (Venlafaxine HCl) 75 Mg Cap.er.24h 75 Mg PO DAILY Memantine HCl ER (Memantine HCl) 28 Mg Cap.spr.24 28 Mg PO DAILY Fluticasone Propionate 50 Mcg/Actuation [place].susp 1 [place] NSEACH DAILY Diltiazem HCl 60 Mg Tablet 60 Mg PO TID HOLD FOR SBP LESS THAN 100 Amiodarone HCl 200 Mg Tablet 200 Mg PO DAILY Allopurinol 300 Mg Tablet 300 Mg PO DAILY Assessment/Pt Instructions PCP in 1 week on long term rounds Discharge Planning: <30 minutes discharge planning Discharge Instructions Discharge Diet: No Restrictions Activity as Tolerated: Yes Discharge Physical Examination Vital Signs Vital Signs Date Time Temp Pulse Resp B/P (MAP) Pulse Ox O2 Delivery O2 Flow Rate FiO2 03/09/22 08:00 Nasal Cannula 4.00 03/09/22 08:00 36.0 79 16 161/79 (106) 97 General Appearance: No Apparent Distress, WD/WN, Chronically ill Respiratory: Lungs Clear, Decreased Breath Sounds Neurologic/Psychiatric: Alert, Oriented x3, No Motor/Sensory Deficits, Normal Mood/Affect Allergies: Coded Allergies: morphine (Verified Allergy, Unknown, 11/10/20) Discharge Summary Date of Admission Mar 07, 2022 at 18:26 Date of Discharge Discharge Date: Mar 09, 2022 Admission Diagnosis Moved to fourth floor IV steroids IV antibiotics Cardiology PADMINI Villa DO Mar 09, 2022 11:54
[2022-03-09 11:56] VITALS: BP 156/72
[2022-03-09] MEDS ORDERED: CEFEPIME 1,000 MG/NS 50 ML IVPB IV SCH ×2 (12:00)
--- NOTE | 2022-03-09 13:16 | Progress Note ---
ROSEMARY MCCLELLAND 03/09/22 1316: Progress Note Hospital course: Won Mills is a 81y/o w/ a PMH of COPD and dementia who presented to the ED on 03/07 due to SOB. He was found to have have a COPD exacerbation and possible PNA seen on CXR. Started on duonebs, solumedrol, cefepime and doxycycline after admission. BUN and Cr were elevated and was started on IVF. The night he was admitted he did have an episode of agitation that required haldol. Today (03/09) his SOB has improved and he is ready to go back to the fdc. Home oxygen study done showing he will need to be discharged on 4L constantly, up from the 2L he was needing prior to admission. Kidney function has improved. Prednisone, cefdiner, and doxycycline Rx given for him to continue as outpt. PADMINI ALONSO DO 03/10/22 0539: Supervisory-Addendum Brief Verification & Attestation Participated in pt care: history, MDM, physical Personally performed: exam, history, MDM, supervision of care Care discussed with: Medical Student Procedures: n/a Results interpretation: Verified all documentation Verification and Attestation of Medical Student E/M Service A medical student performed and documented this service in my presence. I reviewed and verified all information documented by the medical student and made modifications to such information, when appropriate. I personally performed the physical exam and medical decision making. Padmini Alonso, Mar 10, 2022,05:39 ROSEMARY MCCLELLAND Mar 09, 2022 13:16 PADMINI ALONSO DO Mar 10, 2022 05:39
[2022-03-09 13:37] VITALS: BP 156/72
--- NOTE | 2022-03-09 20:55 | Physician Query Clarification ---
Physician Query-General Query to Physician: The medical record reflects the following clinical scenario: The patient, in the setting of History/Risk factors, Advanced age, Possible Pna, Dementia Clinical Findings Admission ABG 7.266/51.3/93/ then improved to pH 7.3, CO2 41.8, O2 66, O2 up to 40% then 4L. (above baseline 02 use), RR 26 on admission and increased to the 31 , consistently 20 and above at rest Treatment Duonebs, Cefepime and doxycycline, Solumedrol, supplemental O2 Question: Do you agree with the impression of Acute hypoxic Respiratory Failure per (Consulting physician)? 1. Yes; will document Acute Hypoxic Respiratory Failure, present on admission in the Progress Notes 2. No; will continue current documentation in the Progress Notes 3. Other; will document explanation of clinical findings 4. Clinically undetermined; no explanation for clinical findings Please clarify and document your clinical opinion in the Progress Notes and Discharge Summary including the definitive and/or presumptive diagnosis, (suspected or probable), related to the above clinical findings. Please include clinical findings supporting your diagnosis. In responding to this query, please exercise your independent professional judgment. The purpose of this communication is to more accurately reflect the complexity of your patients condition. The fact that a question is asked does not imply that any particular answer is desired or expected. Thank you for timely response to this clarification. Luci Whitten RN, MSN Clinical Medical Radiation Therapist [phone] PHYSICIAN RESPONSE: Based on the clinical findings in the record, please respond to the query above on this document as an addendum. Physician Response: Physician Response 1 If you have questions please contact: Director Loss Prevention: Ext: Thank you for your time and cooperation. Clinical Medical Radiation Therapist/Director Loss Prevention This is a permanent part of the medical record LUCI WHITTEN Mar 09, 2022 20:55 PADMINI ALONSO DO Mar 10, 2022 04:54
== END 2022-03-09 13:40 | DRG 190 ==
LOC: EDUNIT# 15:53 → ER 15:54 → ICU 18:26 → 4TH 03-08 13:01
PROVIDERS: ADMIT Internal Medicine; ATTEND Internal Medicine
DX: J44.1 Chronic obstructive pulmonary disease with (acute) exacerbation (principal); J96.21 Acute and chronic respiratory failure with hypoxia; J96.22 Acute and chronic respiratory failure with hypercapnia; J18.9 Pneumonia, unspecified organism; N17.9 Acute kidney failure, unspecified; E87.2 Acidosis; F03.90 Unspecified dementia, unspecified severity, without behavioral disturbance, psychotic disturbance, mood disturbance, and anxiety; R45.1 Restlessness and agitation; I10 Essential (primary) hypertension; E03.9 Hypothyroidism, unspecified; F32.A Depression, unspecified; F41.9 Anxiety disorder, unspecified; E86.0 Dehydration; J44.0 Chronic obstructive pulmonary disease with (acute) lower respiratory infection; R73.9 Hyperglycemia, unspecified; T38.0X5A Adverse effect of glucocorticoids and synthetic analogues, initial encounter; D64.9 Anemia, unspecified; I25.10 Atherosclerotic heart disease of native coronary artery without angina pectoris; E66.9 Obesity, unspecified; Z68.37 Body mass index [BMI] 37.0-37.9, adult; Z99.81 Dependence on supplemental oxygen; Z79.899 Other long term (current) drug therapy; Z79.82 Long term (current) use of aspirin; Z79.52 Long term (current) use of systemic steroids; Z20.822 Contact with and (suspected) exposure to COVID-19; Z87.891 Personal history of nicotine dependence; Z88.5 Allergy status to narcotic agent
CPT/HCPCS: 36415; 71045; 80053; 82805; 82947; 83735; 83880; 85007; 85025; 85027; 86141; 87636; 94660; 94761; 96361; 96374; 96375

== ENCOUNTER 2022-10-14 14:22 | Emergency (ER) | payer MEDICARE, MEDICAID ==
[~2022-10-14] VITALS: Ht 177 cm; Wt 101.0 kg
[~2022-10-14 14:22] MED LIST changes: +ACET325T38 PO; +ALBU1.25 NEB; +CARB15DR OU; +CARB1DRO36 OU; +CEFD300C3 PO; +DOCU100C37 PO; +DOXY100T2 PO; +FURO20TA4 PO; +IBUP-1773 PO; +LEVO175T5 PO; +LOTE3.5O OD; +MELA5TAB14 PO; +NYST60PO TP; +ONDA-105 PO; +OXYC20TA3 PO; +POTA10TA PO; +PRED10TA22 PO; +TRAZ150T72 PO
[2022-10-14] MEDS ORDERED: NS IV 500 ML 500 ML IV ONE (16:15)
[2022-10-14] MEDS ORDERED: ONDANSETRON 4 MG/2 ML (SDV) Z0FRAN IVP ONE (16:15)
--- NOTE | 2022-10-14 16:16 | ED GI ---
General Chief Complaint: Abdominal/GI Problems Stated Complaint: vomiting Nursing Triage Note: PT TO ED PER W/C SENT TO ED W CO OF VOMITING COFFEE GROUND EMESIS TODAY. PT HAS BEEN NAUSEATED FOR APPROX 48 HR. PT HAS HAD COUGH FOR 2 WEEKS. Source of Information: Patient Exam Limitations: No Limitations (VIRGEN MCGHEE APRN) History of Present Illness Date Seen by Provider: Oct 14, 2022 Time Seen by Provider: 16:04 Initial Comments 82-year-old male presents to the ED with complaints of vomiting for the last 3 to 4 days. Reports that there has been blood in his vomit, reports coffee- ground emesis. Patient arrived with bucket of emesis, it did not appear to look like coffee grounds. Denies abdominal pain. Denies fevers, chest pain, shortness of air, diarrhea. Thinks his last bowel movement was 3 days ago. Denies blood in stool. (VIRGEN MCGHEE APRN) Allergies and Home Medications Allergies Coded Allergies: morphine (Verified Allergy, Unknown, 11/10/20) Patient Home Medication List Home Medication List Reviewed: Yes (VIRGEN MCGHEE APRN) Acetaminophen (Tylenol) 325 Mg Tablet, 650 MG PO Q6 -8H PRN for PAIN-MILD (1-4), (Reported) Entered as Reported by: AIRAM PRESCOTT on 03/08/22 09 Albuterol Sulfate (Albuterol Sulfate) 1.25 Mg/3 Ml Vial.neb, 3 ML NEB TID PRN for SHORTNESS OF BREATH, (Reported) Entered as Reported by: AIRAM PRESCOTT on 03/08/22 09 Allopurinol (Allopurinol) 300 Mg Tablet, 300 MG PO DAILY, (Reported) Entered as Reported by: CONNIE SMITH on 01/03/21 1041 Amiodarone HCl (Amiodarone HCl) 200 Mg Tablet, 200 MG PO DAILY, (Reported) Entered as Reported by: CONNIE SMITH on 01/03/21 1041 Aspirin (Aspirin EC) 81 Mg Tablet.dr, 81 MG PO DAILY, (Reported) Entered as Reported by: AIRAM PRESCOTT on 03/08/22 0957 Carboxymethyl/Gly/Poly80/Pf (Refresh [place]-3 Drops) 0.5 %-1 %-0.5 % Droperette, 1 EACH OU QID, (Reported) Entered as Reported by: AIRAM PRESCOTT on 03/08/22956 Carboxymethylcellulose Sodium (Refresh Tears) 0.5 % Drops, 1 DROP OU Q12H PRN for DRY EYES, (Reported) Entered as Reported by: AIRAM PRESCOTT on 03/08/22956 Cefdinir (Cefdinir) 300 Mg Capsule, 300 MG PO BID Prescribed by: PADMINI ALONSO on 03/09/22 1153 Diltiazem HCl (Diltiazem HCl) 60 Mg Tablet, 60 MG PO TID, (Reported) Entered as Reported by: CONNIE SMITH on 01/03/21 104 Docusate Sodium (Docusate Sodium) 100 Mg Capsule, 100 MG PO BID, (Reported) Entered as Reported by: AIRAM PRESCOTT on 03/08/22956 Doxycycline Hyclate (Doxycycline Hyclate) 100 Mg Tablet, 100 MG PO BID Prescribed by: PADMINI ALONSO on 03/09/22 1153 Famotidine (Acid Spray Drier Operator Helper (FAMOTIDINE)) 20 Mg Tablet, 20 MG PO BID, (Reported) Entered as Reported by: AIRAM PRESCOTT on 03/08/22956 Fluticasone Propionate (Fluticasone Propionate) 50 Mcg/Actuation Sab[place].susp, 1 SPRAY NSEACH DAILY, (Reported) Entered as Reported by: CONNIE SMITH on 01/03/21 1041 Furosemide (Furosemide) 20 Mg Tablet, 20 NG PO DAILY PRN for EDEMA, (Reported) Entered as Reported by: AIRAM PRESCOTT on 03/08/22956 Guaifenesin/Dextromethorphan (Mucinex Dm ER 600-30 mg Tablet) 1 Each Tab.er.12h, 1 EACH PO Q12H PRN for CONGESTION, (Reported) Entered as Reported by: ANGELI TAY on 08/01/21 1538 Levothyroxine Sodium (Levothyroxine Sodium) 175 Mcg Tablet, 175 MCG PO DAILY, (Reported) Entered as Reported by: AIRAM PRESCOTT on 03/08/22956 Loteprednol Etabonate (Lotemax) 0.5 % Oint...g., 1 EA OD HS, (Reported) Entered as Reported by: AIRAM PRESCOTT on 03/08/22 09 Magnesium Hydroxide (Milk of Magnesia) 400 Mg/5 Ml Oral.susp, 30 ML PO DAILY PRN for CONSTIPATION-7TH LINE, (Reported) Entered as Reported by: ANGELI TAY on 08/01/21 1537 Melatonin (Melatonin) 5 Mg Tablet, 5 MG PO HS, (Reported) Entered as Reported by: AIRAM PRESCOTT on 03/08/22956 Memantine HCl (Memantine HCl ER) 28 Mg Cap.spr.24, 28 MG PO DAILY, (Reported) Entered as Reported by: CONNIE SMITH on 01/03/21 1041 Menthol (Biofreeze) 4 % Gel..ml., 1 APPLIC TP Q6H PRN for PAIN-BREAKTHROUGH, (Reported) Entered as Reported by: ANGELI TAY on 08/01/21 153 Nystatin (Nystop) 100,000 Unit/Gram Powder, 1 APPLIC TP Q6H PRN for GAULDING, (Reported) Entered as Reported by: AIRAM PRESCOTT on 03/08/22956 Ondansetron HCl (Ondansetron HCl) 4 Mg Tablet, 4 MG PO Q6H PRN for NAUSEA/VOMITING-1ST LINE, (Reported) Entered as Reported by: AIRAM PRESCOTT on 03/08/22956 Oxycodone HCl (Oxycodone HCl) 20 Mg Tablet, 20 MG PO TID PRN for PAIN-SEVERE (8- 10), (Reported) Entered as Reported by: AIRAM PRESCOTT on 03/08/22956 Polyethylene Glycol 3350 (Miralax) 17 Gm Powd.pack, 17 GM PO DAILY, (Reported) Entered as Reported by: ANGELI TAY on 08/01/21 152 Potassium Chloride (K-Tab ER) 10 Meq Tablet.er, 10 MEQ PO DAILY PRN for EDEMA (WHEN TAKING FUROSEMIDE), (Reported) Entered as Reported by: AIRAM PRESCOTT on 03/08/22956 Prednisone (Prednisone) 10 Mg Tab.ds.pk, 10 MG PO DAILY Prescribed by: PADMINI ALONSO on 03/09/22 1153 Trazodone HCl (Trazodone HCl) 150 Mg Tablet, 150 MG PO HS, (Reported) Entered as Reported by: AIRAM PRESCOTT on 03/08/22956 Venlafaxine HCl (Venlafaxine HCl ER) 75 Mg Cap.er.24h, 75 MG PO DAILY, (Reported) Entered as Reported by: CONNIE SMITH on 01/03/21 1041 Review of Systems Review of Systems Constitutional: see HPI (VIRGEN MCGHEE APRN) Past [place]-Cevfyx-Ldjlol Hx Patient Social History Tobacco Use?: No Smoking Status: Former Smoker Substance use?: No Alcohol Use?: No Pt feels they are or have been: No (VIRGEN MCGHEE APRN) Immunizations Up To Date Influenza Vaccine Up-to-Date: Yes; Up-to-Date First/Initial COVID19 Vaccinat: YES Second COVID19 Vaccination Jayce: YES Third COVID19 Vaccination Date: YES (VIRGEN MCGHEE APRN) Seasonal Allergies Seasonal Allergies: No (VIRGEN MCGHEE APRN) Past Medical History Surgery/Hospitalization HX: COPD Surgeries: Yes Abdominal, Gallbladder Respiratory: No Cardiac: Yes Atrial Fibrillation, Hypertension Genitourinary: No Gastrointestinal: Yes Gastroesophageal Reflux, Ulcer Musculoskeletal: No Endocrine: No HEENT: No Cancer: No Psychosocial: Yes (DEMENTIA) Anxiety, Depression Integumentary: No (VIRGEN MCGHEE APRN) Physical Exam Vital Signs Vital Signs - First Documented 10/14/22 14:28 Temp 37.1 Pulse 110 Resp 22 B/P (MAP) 109/72 (84) Pulse Ox 92 O2 Delivery Nasal Cannula O2 Flow Rate 2.00 (SOLOMON CHAND MD) Vital Signs Capillary Refill : Less Than 3 Seconds (VIRGEN MCGHEE APRN) Height/Weight/BMI Height: '" Weight: lbs. oz. kg; 32.00 BMI Method: General Appearance: WD/WN, no apparent distress Neck: supple, normal inspection Respiratory: lungs clear, normal breath sounds, no respiratory distress, no accessory muscle use Cardiovascular: regular rate, rhythm, no edema, no gallop, no JVD, no murmur Gastrointestinal: normal bowel sounds, non tender, soft Genital/Rectal: normal genital exam, normal rectal exam, normal rectal tone, heme positive stool, other (Moderate amount of soft stool in rectum and outside of rectum in patient's brief) Extremities: normal inspection Neurologic/Psychiatric: alert, normal mood/affect Skin: normal color, warm/dry (VIRGEN MCGHEE APRN) Progress/Results/Core Measures Results/Orders Lab Results Laboratory Tests Test 10/14/22 16:05 10/14/22 17:38 Range/Units White Blood Count 23.0 H 4.3-11.0 10^3/uL Red Blood Count 5.20 4.30-5.52 10^6/uL Hemoglobin 14.6 13.3-17.7 g/dL Hematocrit 45 40-54 % Mean Corpuscular Volume 86 80-99 fL Mean Corpuscular Hemoglobin 28 25-34 pg Mean Corpuscular Hemoglobin Concent 33 32-36 g/dL Red Cell Distribution Width 15.8 H 10.0-14.5 % Platelet Count 308 130-400 10^3/uL Mean Platelet Volume 9.9 9.0-12.2 fL Immature Granulocyte % (Auto) 1 % Neutrophils (%) (Auto) 89 H 42-75 % Lymphocytes (%) (Auto) 5 L 12-44 % Monocytes (%) (Auto) 6 0-12 % Eosinophils (%) (Auto) 0 0-10 % Basophils (%) (Auto) 0 0-10 % Neutrophils # (Auto) 20.3 H 1.8-7.8 10^3/uL Lymphocytes # (Auto) 1.2 1.0-4.0 10^3/uL Monocytes # (Auto) 1.3 H 0.0-1.0 10^3/uL Eosinophils # (Auto) 0.0 0.0-0.3 10^3/uL Basophils # (Auto) 0.0 0.0-0.1 10^3/uL Immature Granulocyte # (Auto) 0.2 H 0.0-0.1 10^3/uL Neutrophils % (Manual) 90 % Lymphocytes % (Manual) 2 % Monocytes % (Manual) 6 % Eosinophils % (Manual) 0 % Basophils % (Manual) 0 % Band Neutrophils 2 % Blood Morphology Comment NORMAL Urine Color ORANGE Urine Clarity SL CLOUDY Urine pH 5.5 5-9 Urine Specific [place] 1.025 H 1.016-1.022 Urine Protein NEGATIVE NEGATIVE Urine Glucose (UA) NEGATIVE NEGATIVE Urine Ketones NEGATIVE NEGATIVE Urine Nitrite NEGATIVE NEGATIVE Urine Bilirubin NEGATIVE NEGATIVE Urine Urobilinogen 1.0 < = 1.0 MG/DL Urine Leukocyte Esterase NEGATIVE NEGATIVE Urine RBC (Auto) NEGATIVE NEGATIVE Urine RBC NONE /HPF Urine WBC RARE /HPF Urine Squamous Epithelial Cells NONE /HPF Urine Crystals NONE /LPF Urine Bacteria NEGATIVE /HPF Urine Casts NONE /LPF Urine Mucus NEGATIVE /LPF Urine Culture Indicated NO Sodium Level 131 L 135-145 MMOL/L Potassium Level 4.7 3.6-5.0 MMOL/L Chloride Level 99 98-107 MMOL/L Carbon Dioxide Level 20 L 21-32 MMOL/L Anion Gap 12 5-14 MMOL/L Blood Urea Nitrogen 28 H 7-18 MG/DL Creatinine 1.71 H 0.60-1.30 MG/DL Estimat Glomerular Filtration Rate 40 BUN/Creatinine Ratio 16 Glucose Level 129 H 70-105 MG/DL Calcium Level 9.2 8.5-10.1 MG/DL Corrected Calcium 9.7 8.5-10.1 MG/DL Total Bilirubin 1.2 H 0.1-1.0 MG/DL Aspartate Amino Transf (AST/SGOT) 27 5-34 U/L Alanine Aminotransferase (ALT/SGPT) 20 0-55 U/L Alkaline Phosphatase 97 40-136 U/L Total Protein 7.5 6.4-8.2 GM/DL Albumin 3.4 3.2-4.5 GM/DL Lipase 44 8-78 U/L (SOLOMON CHAND MD) My Orders Orders - SOLOMON CHAND MD Cbc With Automated Diff (10/14/22 14:37) Comprehensive Metabolic Panel (10/14/22 14:37) Ua Culture If Indicated (10/14/22 14:37) Ed Iv/Invasive Line Start (10/14/22 14:37) Manual Differential (10/14/22 16:05) (SOLOMON CHAND MD) Vital Signs/I&O 10/14/22 10/14/22 14:28 18:44 Temp 37.1 Pulse 110 105 Resp 22 20 B/P (MAP) 109/72 (84) 148/90 Pulse Ox 92 93 O2 Delivery Nasal Cannula Nasal Cannula O2 Flow Rate 2.00 2.00 (SOLOMON CHAND MD) Blood Pressure Mean: 84 Progress Progress Note : Time: 16:15 Progress Note Patient seen and evaluated, resting in bed, no acute distress. Work-up initially including CBC, CMP, UA, chest x-ray, lipase. IV fluids and Zofran ordered. 1630 labs reviewed. CBC shows elevated WBC 23.0, likely due to vomiting, baljeet mayfield also takes prednisone daily. CMP shows low sodium 131, slightly decreased CO2 20, BUN elevated 28, creatinine 1.71, GFR 40. Previous labs from February 2022 show BUN 47, creatinine 1.40, GFR 51. Lipase 44. UA negative for infection. Chest x-ray negative for acute cardiopulmonary findings. Rectal exam completed, fecal occult positive. Patient states he is feeling better, and would like to go home. Patient's O2 has been low without oxygen, O2 saturation normal with 2 L of oxygen. Patient denies any shortness of breath, lung sounds are clear. Patient has oxygen he can use as needed. Patient instructed to use it at home as needed. Will discharge with follow-up with surgery due to positive fecal occult. Discharge instructions and return precautions provided. (VIRGEN MCGHEE APRN) Departure Impression Primary Impression: Vomiting Additional Impression: Occult blood positive stool Disposition: HOME, SELF-CARE Condition: Stable Departure-Patient Inst. Decision time for Depature: 18:31 (VIRGEN MCGHEE APRN) Referrals: JC SANTOS MD (PCP/Family) Primary Care Physician EILEEN GALINDO MD Patient Instructions: Bloody Stools Add. Discharge Instructions: Follow-up with surgery, call on Sunday to schedule appointment. You will likely need an endoscopy and/or colonoscopy. Continue wearing your home oxygen as needed for low oxygenation saturation or shortness of breath. Return for worsening blood in vomit or stool, dizziness, recurrent vomiting, shortness of breath, chest pain, or any other new, concerning, or worsening symptoms. All discharge instructions reviewed with patient and/or family. Voiced understanding. ATTENDING PHYSICIAN NOTE: I was physically present as attending physician in the emergency department during the care of this patient, but I was not directly involved in the decision making or delivery of care for this patient. (SOLOMON CHAND MD) VIRGEN MCGHEE APRN Oct 14, 2022 16:16 SOLOMON CHAND MD Oct 16, 2022 18:48
[2022-10-14 16:18] LABS: BASOPHILS % (AUTO) 0 % (0-10); BILIRUBIN,URINE NEGATIVE (NEGATIVE); CLARITY,URINE SL CLOUDY; COLOR,URINE ORANGE; EOSINOPHILS % (AUTO) 0 % (0-10); GLUCOSE, URINE (UA) NEGATIVE (NEGATIVE); HEMATOCRIT 45 % (40-54); HEMOGLOBIN 14.6 g/dL (13.3-17.7); KETONES,URINE NEGATIVE (NEGATIVE); LEUKOCYTE ESTERASE ,URINE NEGATIVE (NEGATIVE); LYMPHOCYTES # (AUTO) 1.2 10^3/uL (1.0-4.0); LYMPHOCYTES % (AUTO) 5 % (12-44); MEAN CORPUSCULAR HEMOGLOBIN 28 pg (25-34); MEAN CORPUSCULAR HGB CONC 33 g/dL (32-36); MEAN CORPUSCULAR VOLUME 86 fL (80-99); MEAN PLATELET VOLUME 9.9 fL (9.0-12.2); MONOCYTES # (AUTO) 1.3 10^3/uL (0.0-1.0); MONOCYTES % (AUTO) 6 % (0-12); NEUTROPHILS # (AUTO) 20.3 10^3/uL (1.8-7.8); NEUTROPHILS % (AUTO) 89 % (42-75); NITRITE,URINE NEGATIVE (NEGATIVE); PH,URINE 5.5 (5-9); PLATELET COUNT 308 10^3/uL (130-400); PROTEIN,URINE NEGATIVE (NEGATIVE)
[2022-10-14 16:25] LABS: BACTERIA,URINE NEGATIVE /HPF; WBC,URINE RARE /HPF
[2022-10-14 16:30] LABS: ALBUMIN 3.4 GM/DL (3.2-4.5); POTASSIUM 4.7 MMOL/L (3.6-5.0)
[2022-10-14 16:31] LABS: CALCIUM 9.2 MG/DL (8.5-10.1)
[2022-10-14 16:33] LABS: TOTAL PROTEIN 7.5 GM/DL (6.4-8.2)
[2022-10-14 16:34] LABS: BILIRUBIN,TOTAL 1.2 MG/DL (0.1-1.0)
[2022-10-14 16:36] LABS: CREATININE SERUM 1.71 MG/DL (0.60-1.30)
[2022-10-14 16:40] LABS: BAND NEUTROPHILS 2 %; BASOPHILS % (MANUAL) 0 %; EOSINOPHILS % (MANUAL) 0 %; LYMPHOCYTES % (MANUAL) 2 %; MONOCYTES % (MANUAL) 6 %; NEUTROPHILS % (MANUAL) 90 %; RBC MORPH NORMAL
--- NOTE | 2022-10-14 17:01 | Diagnostic Imaging Report ---
INDICATION: Low oxygen saturation. TECHNIQUE: Single view chest 4:40 PM. CORRELATION STUDY: 03/09/2022 FINDINGS: Heart size and mediastinum are prominent. Perhaps slightly increased from prior. Vasculature generally stable. Coarse prominent interstitial markings throughout both lung adams persisting. Likely largely chronic. Definitive acute superimposed infiltrate is not present, overall appears perhaps slightly less pronounced from prior. Thoracic spine stimulator lead remains in place. IMPRESSION: 1. Chronic changes of lung parenchymal without evidence for acute cardiopulmonary abnormality. Unchanged fullness bilateral chris. Dictated by: Dictated on workstation # [id number]
[2022-10-14 18:44] VITALS: BP 148/90
== END 2022-10-14 18:44 | disposition home or self-care (01) ==
LOC: EDUNIT# 14:22 → ER 14:27
DX: K92.0 Hematemesis (principal); R19.5 Other fecal abnormalities; D72.829 Elevated white blood cell count, unspecified; E87.1 Hypo-osmolality and hyponatremia; R79.89 Other specified abnormal findings of blood chemistry; R79.81 Abnormal blood-gas level; Z79.52 Long term (current) use of systemic steroids; Z87.891 Personal history of nicotine dependence
CPT/HCPCS: 36415; 71045; 80053; 81000; 82274; 83690; 85007; 85027

== ENCOUNTER 2022-12-26 16:25 | Emergency (ER) | payer MEDICARE, MEDICAID ==
[~2022-12-26] VITALS: Ht 172 cm; Wt 82.0 kg
[~2022-12-26 16:25] MED LIST changes: +ALBU0.63 NEB; +BENZ100C18 PO; +BUPR150T24 PO; +MINE3.5O20 OU; +MOM10U PO; +MULT-166 PO; +TRAZ-227 PO
[2022-12-26] MEDS ORDERED: DOXYCYCLINE 100 MG (VIBRAMYCIN) TABLET PO STA (16:33)
[2022-12-26] MEDS ORDERED: FUROSEMIDE 40 MG/4 ML INJ (LASIX) IVP ONE (16:45)
[2022-12-26] MEDS ORDERED: cefTRIAXone IV/IM 1,000 MG in NS (IVPB) 50 ML IV ONE (16:45)
[2022-12-26 16:47] LABS: BASOPHILS % (AUTO) 0 % (0-10); EOSINOPHILS % (AUTO) 9 % (0-10); HEMATOCRIT 46 % (40-54); HEMOGLOBIN 14.5 g/dL (13.3-17.7); LYMPHOCYTES # (AUTO) 1.9 10^3/uL (1.0-4.0); LYMPHOCYTES % (AUTO) 18 % (12-44); MEAN CORPUSCULAR HEMOGLOBIN 28 pg (25-34); MEAN CORPUSCULAR HGB CONC 32 g/dL (32-36); MEAN CORPUSCULAR VOLUME 87 fL (80-99); MEAN PLATELET VOLUME 9.5 fL (9.0-12.2); MONOCYTES # (AUTO) 0.5 10^3/uL (0.0-1.0); MONOCYTES % (AUTO) 5 % (0-12); NEUTROPHILS # (AUTO) 7.1 10^3/uL (1.8-7.8); NEUTROPHILS % (AUTO) 67 % (42-75); PLATELET COUNT 381 10^3/uL (130-400); WHITE BLOOD COUNT 10.6 10^3/uL (4.3-11.0)
--- NOTE | 2022-12-26 16:48 | ED Respiratory ---
General Chief Complaint: Respiratory Problems Stated Complaint: PNEUMONIA Nursing Triage Note: PT ARRIVE PER EMS. PT HAS CT TODAY AT [facility] AND HIS PCP WANTED HIM SEEN IN ED. PT WEARS O2 @3L PER N/C. PT IS FROM [place]. DENIES FEVERS, DOES HAVE COUGH AND WHEEZING Source: patient, EMS, alf records, old records Exam Limitations: no limitations History of Present Illness Date Seen by Provider: Dec 26, 2022 Time Seen by Provider: 16:27 Initial Comments 82-year-old male with past medical history of chronic respiratory failure on 2 to 3 L oxygen, COPD, afib, CKD, hypertension, hypothyroidism coming from the alf via EMS due to concerns for respiratory issues. The patient had a CT scan today which reportedly showed pneumonia, potentially extra fluid from heart failure, and they wanted him to be seen in the ER. He states he is breathing slightly harder today compared to usual. He states he has had "chronic pneumonia", but per nursing report is not on antibiotics. Otherwise denying any fever, chest pain, abdominal pain, nausea, vomiting, diarrhea, focal weakness or numbness, or any other concerns. Allergies and Home Medications Allergies Coded Allergies: morphine (Verified Allergy, Unknown, 11/10/20) Patient Home Medication List Home Medication List Reviewed: Yes Albuterol Sulfate (Albuterol Sulfate) 1.25 Mg/3 Ml Vial.neb, 3 ML NEB Q6H PRN for SHORTNESS OF BREATH, (Reported) Entered as Reported by: AIRAM PRESCOTT on 03/08/22 0957 Albuterol Sulfate (Albuterol Sulfate) 0.63 Mg/3 Ml Vial.neb, 3 ML NEB TID, (Reported) Entered as Reported by: AIRAM PRESCOTT on 11/09/22 1105 Allopurinol (Allopurinol) 300 Mg Tablet, 300 MG PO DAILY, (Reported) Entered as Reported by: CONNIE SMITH on 01/03/21 1041 Amiodarone HCl (Amiodarone HCl) 200 Mg Tablet, 200 MG PO DAILY, (Reported) Entered as Reported by: CONNIE SMITH on 01/03/21 1041 Aspirin (Aspirin EC) 81 Mg Tablet.dr, 81 MG PO DAILY, (Reported) Entered as Reported by: AIRAM PRESCOTT on 03/08/22 0957 Benzonatate (Tessalon Perles) 100 Mg Capsule, 200 MG PO Q8H PRN for COUGH, (Reported) Entered as Reported by: AIRAM PRESCOTT on 11/09/22 110 Bupropion HCl (Bupropion Xl) 150 Mg Tab.er.24h, 150 MG PO DAILY, (Reported) Entered as Reported by: AIRAM PRESCOTT on 11/09/22 110 Carboxymethylcellulose Sodium (Refresh Tears) 0.5 % Drops, 1 DROP OU BID, (Reported) Entered as Reported by: AIRAM PRESCOTT on 03/08/22956 Diltiazem HCl (Diltiazem HCl) 60 Mg Tablet, 60 MG PO TID, (Reported) Entered as Reported by: CONNIE SMITH on 01/03/21 104 Docusate Sodium (Docusate Sodium) 100 Mg Capsule, 100 MG PO BID, (Reported) Entered as Reported by: AIRAM PRESCOTT on 03/08/22956 Famotidine (Acid Elastic Attacher Overlock (FAMOTIDINE)) 20 Mg Tablet, 20 MG PO BID, (Reported) Entered as Reported by: AIRAM PRESCOTT on 03/08/22956 Fluticasone Propionate (Fluticasone Propionate) 50 Mcg/Actuation Jackson.susp, 1 SPRAY NSEACH DAILY, (Reported) Entered as Reported by: CONNIE SMITH on 01/03/21 104 Levothyroxine Sodium (Levothyroxine Sodium) 175 Mcg Tablet, 175 MCG PO DAILY, (Reported) Entered as Reported by: AIRAM PRESCOTT on 03/08/22956 Melatonin (Melatonin) 5 Mg Tablet, 5 MG PO HS, (Reported) Entered as Reported by: AIRAM PRESCOTT on 03/08/22956 Memantine HCl (Memantine HCl ER) 28 Mg Cap.spr.24, 28 MG PO DAILY, (Reported) Entered as Reported by: CONNIE SMITH on 01/03/21 104 Multivitamin with Minerals (Multivitamins with Minerals) 1 Each Tablet, 1 EACH PO DAILY, (Reported) Entered as Reported by: AIRAM PRESCOTT on 11/09/22 110 Petrolat,Wht/Min Oil/Sod Chl (Refresh P.m. Ointment P-F) 42.5 %-57.3 % Oint...g., 1 APPLIC OU HS, (Reported) Entered as Reported by: AIRAM PRESCOTT on 11/09/22 1105 Polyethylene Glycol 3350 (Miralax) 17 Gm Powd.pack, 17 GM PO DAILY, (Reported) Entered as Reported by: ANGELI TAY on 08/01/21 1528 Trazodone HCl (Trazodone HCl) 100 Mg Tablet, 100 MG PO HS, (Reported) Entered as Reported by: AIRAM PRESCOTT on 11/09/22 1105 Venlafaxine HCl (Venlafaxine HCl ER) 75 Mg Cap.er.24h, 75 MG PO DAILY, (Reported) Entered as Reported by: CONNIE MSITH on 01/03/21 1041 Review of Systems Review of Systems Constitutional: No fever EENTM: no symptoms reported Respiratory: see HPI Cardiovascular: no symptoms reported Gastrointestinal: no symptoms reported Genitourinary: no symptoms reported Musculoskeletal: no symptoms reported Skin: no symptoms reported Psychiatric/Neurological: No Symptoms Reported Past [id number]-[id number] Hx Patient Social History Smoking Status: Former Smoker Substance use?: No Alcohol Use?: No Pt feels they are or have been: No Immunizations Up To Date First/Initial COVID19 Vaccinat: YES Second COVID19 Vaccination Jayce: YES Third COVID19 Vaccination Date: YES Seasonal Allergies Seasonal Allergies: No Past Medical History Surgery/Hospitalization HX: COPD Surgeries: Yes Abdominal, Gallbladder Respiratory: No Cardiac: Yes Atrial Fibrillation, Hypertension Genitourinary: No Gastrointestinal: Yes Gastroesophageal Reflux, Ulcer Musculoskeletal: No Endocrine: No HEENT: No Cancer: No Psychosocial: Yes (DEMENTIA) Anxiety, Depression Integumentary: No Family Medical History No Pertinent Family Hx Physical Exam Vital Signs - First Documented 12/26/22 16:25 Pulse 76 Resp 16 Pulse Ox 98 O2 Delivery Nasal Cannula O2 Flow Rate 3.00 Capillary Refill : Less Than 3 Seconds Height: '" Weight: lbs. oz. kg; 27.00 BMI Method: General Appearance: mild distress, other (Chronically ill-appearing) Eyes: Bilateral Eye Normal Inspection, Bilateral Eye PERRL HEENT: PERRL/EOMI, normal ENT inspection, pharynx normal Neck: non-tender, full range of motion, supple, normal inspection Respiratory: chest non-tender, no accessory muscle use, wheezing Cardiovascular: irregularly irregular Gastrointestinal: normal bowel sounds, non tender, soft; No distended, No guarding Extremities: normal range of motion, non-tender, normal inspection, no calf tenderness, normal capillary refill Neurologic/Psychiatric: no motor/sensory deficits, alert, normal mood/affect Skin: normal color, warm/dry Focused Exam Lactate Level 12/26/22 16:35: Lactic Acid Level 1.42 Lactic Acid Level Laboratory Tests Test 12/26/22 16:35 Lactic Acid Level 1.42 MMOL/L (0.50-2.00) Progress/Results/Core Measures Suspected Sepsis SIRS Temperature: Pulse: 76 Respiratory Rate: 16 Laboratory Tests 12/26/22 16:35: White Blood Count 10.6 Blood Pressure / Mean: 12/26/22 16:35: Lactic Acid Level 1.42 Laboratory Tests 12/26/22 16:35: Creatinine 1.03, INR Comment 1.0, Platelet Count 381, Total Bilirubin 0.4 Results/Orders Lab Results Laboratory Tests Test 12/26/22 16:35 Range/Units White Blood Count 10.6 4.3-11.0 10^3/uL Red Blood Count 5.27 4.30-5.52 10^6/uL Hemoglobin 14.5 13.3-17.7 g/dL Hematocrit 46 40-54 % Mean Corpuscular Volume 87 80-99 fL Mean Corpuscular Hemoglobin 28 25-34 pg Mean Corpuscular Hemoglobin Concent 32 32-36 g/dL Red Cell Distribution Width 15.3 H 10.0-14.5 % Platelet Count 381 130-400 10^3/uL Mean Platelet Volume 9.5 9.0-12.2 fL Immature Granulocyte % (Auto) 0 % Neutrophils (%) (Auto) 67 42-75 % Lymphocytes (%) (Auto) 18 12-44 % Monocytes (%) (Auto) 5 0-12 % Eosinophils (%) (Auto) 9 0-10 % Basophils (%) (Auto) 0 0-10 % Neutrophils # (Auto) 7.1 1.8-7.8 10^3/uL Lymphocytes # (Auto) 1.9 1.0-4.0 10^3/uL Monocytes # (Auto) 0.5 0.0-1.0 10^3/uL Eosinophils # (Auto) 1.0 H 0.0-0.3 10^3/uL Basophils # (Auto) 0.0 0.0-0.1 10^3/uL Immature Granulocyte # (Auto) 0.0 0.0-0.1 10^3/uL Prothrombin Time 13.5 12.2-14.7 SEC INR Comment 1.0 0.8-1.4 Activated Partial Thromboplast Time 34 24-35 SEC Sodium Level 135 135-145 MMOL/L Potassium Level 4.1 3.6-5.0 MMOL/L Chloride Level 98 98-107 MMOL/L Carbon Dioxide Level 26 21-32 MMOL/L Anion Gap 11 5-14 MMOL/L Blood Urea Nitrogen 13 7-18 MG/DL Creatinine 1.03 0.60-1.30 MG/DL Estimat Glomerular Filtration Rate 73 BUN/Creatinine Ratio 13 Glucose Level 103 70-105 MG/DL Lactic Acid Level 1.42 0.50-2.00 MMOL/L Calcium Level 9.1 8.5-10.1 MG/DL Corrected Calcium 9.9 8.5-10.1 MG/DL Magnesium Level 1.8 1.6-2.4 MG/DL Total Bilirubin 0.4 0.1-1.0 MG/DL Aspartate Amino Transf (AST/SGOT) 20 5-34 U/L Alanine Aminotransferase (ALT/SGPT) 11 0-55 U/L Alkaline Phosphatase 101 40-136 U/L Troponin I < 0.028 <0.028 NG/ML B-Type Natriuretic Peptide 65.8 <100.0 PG/ML Total Protein 6.9 6.4-8.2 GM/DL Albumin 3.0 L 3.2-4.5 GM/DL Lipase 11 8-78 U/L My Orders Orders - DAI ALMARAZ MD Cbc With Automated Diff (12/26/22 16:33) Magnesium (12/26/22 16:33) Chest 1 View, Ap/Pa Only (12/26/22 16:33) Ekg Tracing (12/26/22 16:33) Comprehensive Metabolic Panel (12/26/22 16:33) Protime With Inr (12/26/22 16:33) Partial Thromboplastin Time (12/26/22 16:33) O2 (12/26/22 16:33) Monitor-Rhythm Ecg Trace Only (12/26/22 16:33) Ed Iv/Invasive Line Start (12/26/22 16:33) Lipase (12/26/22 16:33) Bnp [place] (12/26/22 16:33) Troponin I [place] (12/26/22 16:33) Blood Culture (12/26/22 16:33) Lactic Acid Analyzer (12/26/22 16:33) Ceftriaxone Iv/Im (Rocephin Iv/Im) (12/26/22 16:45) Doxycycline Hyclate Tablet (Vibramycin T (12/26/22 16:33) Furosemide Injection (Lasix Injection) (12/26/22 16:45) Dexamethasone Injection (Decadron Injec (12/26/22 16:45) Albuterol/Ipra Inhalation Soln (Duoneb I (12/26/22 17:30) Medications Given in ED Current Medications Medications Dose Ordered Sig/Julianne Route Start Time Stop Time Status Last Admin Dose Admin Albuterol/ Ipratropium 3 ml ONCE ONCE INH 12/26/22 17:30 12/26/22 17:31 DC 12/26/22 17:58 3 ML Ceftriaxone Sodium 1000 mg/ Sodium Chloride 50 ml @ 100 mls/hr ONCE ONCE IV 12/26/22 16:45 12/26/22 17:14 DC 12/26/22 16:52 100 MLS/HR Dexamethasone Sodium Phosphate 8 mg ONCE ONCE IV 12/26/22 16:45 12/26/22 16:46 DC 12/26/22 16:52 8 MG Furosemide 40 mg ONCE ONCE IVP 12/26/22 16:45 12/26/22 16:46 DC 12/26/22 16:52 40 MG Vital Signs/I&O 12/26/22 12/26/22 12/26/22 16:25 16:25 16:30 Pulse 76 Resp 16 B/P (MAP) Pulse Ox 98 98 O2 Delivery Nasal Cannula Nasal Cannula Nasal Cannula O2 Flow Rate 3.00 3.00 3.00 Capillary Refill : Less Than 3 Seconds Progress Note : Progress Note 82-year-old male with above history coming in via EMS from the alf after he had a CT report saying he had extra fluid on his lungs. ABCs were intact and vitals were stable on presentation near his baseline oxygen of 3 L. He is in A-fib which she has a history of. He is rate controlled currently. EKG ordered and interpreted by me showing no acute ischemic changes, A-fib with a rate of 90. Chest x-ray appears similar to prior but pleural effusions on my interpretation. An IV was placed and he was given Lasix here as well as a DuoNeb, steroids, and antibiotics. He had significant wheezing on exam and I am concerned for COPD exacerbation. I reviewed the chart, and he had an echo in 2021 with a normal ejection fraction. Basic labs significant for normal troponin, normal BNP, normal white blood cell count, normal creatinine. Patient continues to be on his baseline O2, better appearing after his treatments. I will send a prescription for antibiotics and steroids. He can follow-up with cardiology as an outpatient given his work-up has been unrevealing for any type of significant heart abnormality today. ECG Initial ECG Impression Date: Dec 26, 2022 Initial ECG Impression Time: 16:37 Initial ECG Rate: 90 Initial ECG Rhythm: Normal Sinus Comment Wide QRS with a right bundle branch block, no STEMI, compared to prior EKG, now is in A-fib Diagnostic Imaging Diagonstic Imaging: Xray (chest) Comments NAME: [facility] REC#: [id number] PT STATUS: REG ER : 1940 PHYSICIAN: DAI ALMARAZ MD ADMIT DATE: 12/26/22/ER Draft Date of Exam:12/26/22 CHEST 1 VIEW, AP/PA ONLY CLINICAL INDICATION: Patient with chest pain. EXAM: Portable chest x-ray upright view. COMPARISON: Chest x-ray dated 11/08/2022. FINDINGS: There is interval progression of patchy airspace opacities involving the inferior left perihilar region. There is otherwise persistent increased lung markings and patchy opacities involving the periphery of both lungs of both lung bases. There is stable blunting of the left costophrenic angle region. There is no pneumothorax. Pulmonary vasculature and cardiac silhouette are within normal limits. Spinal cord simulator paddle seen overlying the mid thoracic spine. Compression fracture deformity with kyphoplasty changes involving the thoracolumbar vertebra is again noted. IMPRESSION: 1: Interval development of amorphous airspace opacities involving the inferior left perihilar region which may represent lung infiltrate. 2: Stable small left pleural effusion versus pleural thickening. 3: Otherwise, stable chronic lung changes. Dictated on workstation # [id number] Dict: 12/26/22 1702 Trans: 12/26/22 1715 [facility] [id number] Interpreted by: BALTAZAR SALOMON MD Electronically signed by: Departure Impression Primary Impression: COPD with exacerbation Additional Impression: Acute and chronic respiratory failure Disposition: HOME, SELF-CARE Condition: Stable Departure-Patient Inst. Decision time for Depature: 18:15 Referrals: JC SANTOS MD (PCP/Family) Primary Care Physician PASCUAL STOLL MD Patient Instructions: COPD Exacerbation, Adult ED Add. Discharge Instructions: We did not see any evidence of heart failure based on labs and your evaluation today. You also had an echo done last year which showed a normal ejection fraction. We do recommend following up with Dr. Stoll as an outpatient. We are concerned for a COPD exacerbation. You will be on antibiotics and steroids for the next week. You will be due for your next doses tomorrow and they were sent to your pharmacy. Scripts Methylprednisolone (Methylprednisolone Dose Pack) 4 Mg Tab.ds.pk 4 MG PO UD for 6 Days, #21 PKG PER DOSE PACK INSTRUCTIONS Prov: DAI ALMARAZ MD 12/26/22 Levofloxacin (Levofloxacin) 750 Mg Tablet 750 MG PO DAILY for 7 Days, #7 TAB Prov: DAI ALMARAZ MD 12/26/22 DAI ALMARAZ MD Dec 26, 2022 16:48
[2022-12-26 16:57] LABS: PROTHROMBIN TIME PATIENT 13.5 SEC (12.2-14.7)
[2022-12-26 16:58] LABS: CHLORIDE 98 MMOL/L (98-107); POTASSIUM 4.1 MMOL/L (3.6-5.0); SODIUM 135 MMOL/L (135-145)
[2022-12-26 16:59] LABS: CALCIUM 9.1 MG/DL (8.5-10.1)
[2022-12-26 17:00] LABS: GLUCOSE 103 MG/DL (70-105)
[2022-12-26 17:01] LABS: TOTAL PROTEIN 6.9 GM/DL (6.4-8.2)
[2022-12-26 17:02] LABS: BILIRUBIN,TOTAL 0.4 MG/DL (0.1-1.0); CARBON DIOXIDE 26 MMOL/L (21-32)
[2022-12-26 17:04] LABS: ALKALINE PHOSPHATASE 101 U/L (40-136); CREATININE SERUM 1.03 MG/DL (0.60-1.30); GFR ESTIMATED 73
[2022-12-26 17:05] LABS: BUN/CREATININE RATIO 13
[2022-12-26 17:07] LABS: ALANINE AMINOTRANSFERASE 11 U/L (0-55); MAGNESIUM 1.8 MG/DL (1.6-2.4)
[2022-12-26 17:08] LABS: LIPASE 11 U/L (8-78)
--- NOTE | 2022-12-26 17:16 | Diagnostic Imaging Report ---
CLINICAL INDICATION: Patient with chest pain. EXAM: Portable chest x-ray upright view. COMPARISON: Chest x-ray dated 11/08/2022. FINDINGS: There is interval progression of patchy airspace opacities involving the inferior left perihilar region. There is otherwise persistent increased lung markings and patchy opacities involving the periphery of both lungs of both lung bases. There is stable blunting of the left costophrenic angle region. There is no pneumothorax. Pulmonary vasculature and cardiac silhouette are within normal limits. Spinal cord simulator paddle seen overlying the mid thoracic spine. Compression fracture deformity with kyphoplasty changes involving the thoracolumbar vertebra is again noted. IMPRESSION: 1: Interval development of amorphous airspace opacities involving the inferior left perihilar region which may represent lung infiltrate. 2: Stable small left pleural effusion versus pleural thickening. 3: Otherwise, stable chronic lung changes. Dictated by: Dictated on workstation # [id number]
[2022-12-26] MEDS ORDERED: RT-ALBUTEROL/IPRATROPIUM 3 ML (DUONEB) VIAL INH ONE (17:30)
[2022-12-26] MEDS ORDERED: METH4TAB10 PO (18:13)
[2022-12-26] MEDS ORDERED: LEVO750T PO (18:13)
[2022-12-26 18:41] VITALS: BP 137/86
== END 2022-12-26 18:41 | disposition home or self-care (01) ==
LOC: EDUNIT# 16:26 → ER 16:27
DX: J44.9 Chronic obstructive pulmonary disease, unspecified (principal); J96.20 Acute and chronic respiratory failure, unspecified whether with hypoxia or hypercapnia; I45.10 Unspecified right bundle-branch block; J90 Pleural effusion, not elsewhere classified; Z99.81 Dependence on supplemental oxygen; Z87.891 Personal history of nicotine dependence
CPT/HCPCS: 36415; 71045; 80053; 83605; 83690; 83735; 83880; 84484; 85025; 85610; 85730; 87040; 93005; 93041

== ENCOUNTER 2023-02-20 16:35 | Inpatient (IN) | payer MEDICARE, MEDICAID ==
[2023-02-20] VITALS (12 sets, daily range): BP systolic 67–117; BP diastolic 50–82
[~2023-02-20] VITALS: Ht 177.8 cm; Wt 88.5 kg
[~2023-02-20 16:35] MED LIST changes: +LEVO750T PO; +METH4TAB10 PO; +POTA-185 PO; -POTA10TA PO
[2023-02-20] MEDS ORDERED: NS IV 1000 ML 1,000 ML ONE (16:55)
[2023-02-20 17:11] LABS: BASOPHILS # (AUTO) 0.1 10^3/uL (0.0-0.1); BASOPHILS % (AUTO) 0 % (0-10); EOSINOPHILS % (AUTO) 0 % (0-10); HEMATOCRIT 40 % (40-54); LYMPHOCYTES # (AUTO) 1.8 10^3/uL (1.0-4.0); LYMPHOCYTES % (AUTO) 7 % (12-44); MEAN CORPUSCULAR HEMOGLOBIN 28 pg (25-34); MEAN CORPUSCULAR HGB CONC 32 g/dL (32-36); MEAN CORPUSCULAR VOLUME 86 fL (80-99); MEAN PLATELET VOLUME 9.5 fL (9.0-12.2); MONOCYTES # (AUTO) 1.2 10^3/uL (0.0-1.0); MONOCYTES % (AUTO) 5 % (0-12); NEUTROPHILS # (AUTO) 21.9 10^3/uL (1.8-7.8); NEUTROPHILS % (AUTO) 87 % (42-75); PLATELET COUNT 412 10^3/uL (130-400); WHITE BLOOD COUNT 25.2 10^3/uL (4.3-11.0)
--- NOTE | 2023-02-20 17:12 | ED General ---
General Chief Complaint: Cardiac/General Problems Stated Complaint: HYPOTENSIVE Nursing Triage Note: PT TO RM 4 BY [facility] WITH CC OF HYPOTENSION AND AMS, EMS STATED PT SEEMED TO ANSWER ALL QUESTIONS Source of Information: Patient, EMS, Group Home Records, Old Records Exam Limitations: No Limitations (SOLOMON CHAND MD) History of Present Illness Date Seen by Provider: Feb 20, 2023 Time Seen by Provider: 16:40 Initial Comments This 82-year-old gentleman presents to the emergency room via EMS from [facility] with complaints of altered mental status and hypotension. Prehospital blood pressure was noted to be 62/47 with a pulse of 100. He is afebrile with a temperature of 98.8 prehospital. Patient is somnolent but responds to questions. He is oriented to person, place, age, and situation. He denies feeling ill recently. He reports dry mouth. He reports some recent diarrhea. No report of other acute illness was provided by the care home. He has COPD and uses oxygen supplementation by nasal cannula chronically. During triage nursing staff noted a firm, tender, erythematous lump under the right jaw which patient states "just popped up." (SOLOMON CHAND MD) Allergies and Home Medications Allergies Coded Allergies: morphine (Verified Allergy, Unknown, 11/10/20) Patient Home Medication List Home Medication List Reviewed: Yes (SOLOMON CHAND MD) Albuterol Sulfate (Albuterol Sulfate) 1.25 Mg/3 Ml Vial.neb, 3 ML NEB Q6H PRN for SHORTNESS OF BREATH, (Reported) Entered as Reported by: AIRAM PRESCOTT on 03/08/22 0957 Albuterol Sulfate (Albuterol Sulfate) 0.63 Mg/3 Ml Vial.neb, 3 ML NEB TID, (Re ported) Entered as Reported by: AIRAM PRESCOTT on 11/09/22 1105 Allopurinol (Allopurinol) 300 Mg Tablet, 300 MG PO DAILY, (Reported) Entered as Reported by: CONNIE SMITH on 01/03/21 1041 Amiodarone HCl (Amiodarone HCl) 200 Mg Tablet, 200 MG PO DAILY, (Reported) Entered as Reported by: CONNIE SMITH on 01/03/21 1041 Aspirin (Aspirin EC) 81 Mg Tablet.dr, 81 MG PO DAILY, (Reported) Entered as Reported by: AIRAM PRESCOTT on 03/08/22956 Benzonatate (Tessalon Perles) 100 Mg Capsule, 200 MG PO Q8H PRN for COUGH, (Reported) Entered as Reported by: AIRAM PRESCOTT on 11/09/22 110 Bupropion HCl (Bupropion Xl) 150 Mg Tab.er.24h, 150 MG PO DAILY, (Reported) Entered as Reported by: AIRAM PRESCOTT on 11/09/22 110 Carboxymethylcellulose Sodium (Refresh Tears) 0.5 % Drops, 1 DROP OU BID, (Reported) Entered as Reported by: AIRAM PRESCOTT on 03/08/22956 Diltiazem HCl (Diltiazem HCl) 60 Mg Tablet, 60 MG PO TID, (Reported) Entered as Reported by: CONNIE SMITH on 01/03/21 104 Docusate Sodium (Docusate Sodium) 100 Mg Capsule, 100 MG PO BID, (Reported) Entered as Reported by: AIRAM PRESCOTT on 03/08/22956 Famotidine (Acid Credit Review Officer (FAMOTIDINE)) 20 Mg Tablet, 20 MG PO BID, (Reported) Entered as Reported by: AIRAM PRESCOTT on 03/08/22956 Fluticasone Propionate (Fluticasone Propionate) 50 Mcg/Actuation [place].susp, 1 SPRAY NSEACH DAILY, (Reported) Entered as Reported by: CONNIE SMITH on 01/03/21 104 Levofloxacin (Levofloxacin) 750 Mg Tablet, 750 MG PO DAILY Prescribed by: DAI ALMARAZ on 12/26/22 181 Levothyroxine Sodium (Levothyroxine Sodium) 175 Mcg Tablet, 175 MCG PO DAILY, (Reported) Entered as Reported by: AIRAM PRESCOTT on 03/08/22956 Melatonin (Melatonin) 5 Mg Tablet, 5 MG PO HS, (Reported) Entered as Reported by: AIRAM PRESCOTT on 03/08/22956 Memantine HCl (Memantine HCl ER) 28 Mg Cap.spr.24, 28 MG PO DAILY, (Reported) Entered as Reported by: CONNIE SMITH on 01/03/21 104 Methylprednisolone (Methylprednisolone Dose Pack) 4 Mg Tab.ds.pk, 4 MG PO UD Prescribed by: DAI ALMARAZ on 12/26/22 1813 Multivitamin with Minerals (Multivitamins with Minerals) 1 Each Tablet, 1 EACH PO DAILY, (Reported) Entered as Reported by: AIRAM PRESCOTT on 11/09/22 1105 Petrolat,Wht/Min Oil/Sod Chl (Refresh P.m. Ointment P-F) 42.5 %-57.3 % Oint...g., 1 APPLIC OU HS, (Reported) Entered as Reported by: AIRAM PRESCOTT on 11/09/22 1105 Polyethylene Glycol 3350 (Miralax) 17 Gm Powd.pack, 17 GM PO DAILY, (Reported) Entered as Reported by: ANGELI TAY on 08/01/21 1528 Trazodone HCl (Trazodone HCl) 100 Mg Tablet, 100 MG PO HS, (Reported) Entered as Reported by: AIRAM PRESCOTT on 11/09/22 1105 Venlafaxine HCl (Venlafaxine HCl ER) 75 Mg Cap.er.24h, 75 MG PO DAILY, (Reported) Entered as Reported by: CONNIE SMITH on 01/03/21 1041 Review of Systems Review of Systems Constitutional: see HPI, malaise, weakness EENTM: see HPI Respiratory: no symptoms reported Cardiovascular: see HPI Gastrointestinal: no symptoms reported Genitourinary: no symptoms reported Musculoskeletal: no symptoms reported Skin: no symptoms reported Psychiatric/Neurological: See HPI Hematologic/Lymphatic: No Symptoms Reported Immunological/Allergic: no symptoms reported (SOLOMON CHAND MD) Past Rwvbkuj-Uvronu-Gsnsep Hx Patient Social History Tobacco Use?: No Substance use?: No Alcohol Use?: No (SOLOMON CHAND MD) Immunizations Up To Date First/Initial COVID19 Vaccinat: YES Second COVID19 Vaccination Jayce: YES Third COVID19 Vaccination Date: YES (SOLOMON CHAND MD) Seasonal Allergies Seasonal Allergies: No (SOLOMON CHAND MD) Past Medical History Surgery/Hospitalization HX: COPD, ANXIETY, GOUT, DEPRESSION, CHRONIC KIDNEY DISEASE, SKIN CA HTN, GERD Surgeries: Yes Abdominal, Gallbladder Respiratory: No Cardiac: Yes Atrial Fibrillation, Hypertension Genitourinary: Yes Renal Failure (Chronic kidney disease) Gastrointestinal: Yes Gastroesophageal Reflux, Ulcer Musculoskeletal: No Endocrine: Yes Hypothyroidsim HEENT: No Cancer: No Psychosocial: Yes (DEMENTIA) Anxiety, Depression Integumentary: No (SOLOMON CHAND MD) Family Medical History No Pertinent Family Hx (SOLOMON CHAND MD) Physical Exam-Suspected Sepsis Physical Exam Vital Signs Vital Signs - First Documented 02/20/23 16:40 Temp 37.1 Pulse 94 Resp 18 B/P (MAP) 89/69 (76) Pulse Ox 96 O2 Delivery Nasal Cannula O2 Flow Rate 2.00 ([place]RO [place] MD) Vital Signs Capillary Refill : Less Than 3 Seconds (SOLOMON CHAND MD) Blood Pressure Mean: 76 Height, Weight, BMI Height: '" Weight: lbs. oz. kg; 38.00 BMI Method: General Appearance: WD/WN, Mild Distress, Obese HEENT: PERRL/EOMI, Other (Oropharynx somewhat dry. Floor of the mouth is ramona matous and tender on the right. There is a warm, erythematous, tender, and indurated fullness under the right mandible suggestive of abscess or gland infection.) Neck: Normal Inspection; No JVD Respiratory: Lungs Clear, Normal Breath Sounds, No Accessory Muscle Use, No Respiratory Distress Cardiovascular: Regular Rate, Rhythm, No Edema, No Murmur Gastrointestinal: Normal Bowel Sounds, Non Tender, Soft; No Distended Extremity: No Pedal Edema, Other (Cool, dusky fingers and toes with sluggish capillary refill) Neurologic/Psychiatric: Alert (Decreased alertness), Oriented x3, Other (No focal deficits. Mentation a bit sluggish. Occasional involuntary twitching) Skin: warm/dry, other (Extremities a bit cool and dusky) (SOLOMON CHAND MD) Focused Exam Lactate Level 02/20/23 16:50: Lactic Acid Level 1.30 ([place] MD) Lactic Acid Level Laboratory Tests Test 02/20/23 16:50 Lactic Acid Level 1.30 MMOL/L (0.50-2.00) ([place] MD) Procedures/Interventions Lumen: triple Central Line Procedure: betadine prep, sterile drapes applied, sterile dressing applied Position: femoral (R) Anesthesia: Lidocaine Volume Anesthetic (ccs): 3 Complications: none Post Position: sutured, good blood return Patient tolerated well. All 3 ports aspirated and flushed nicely ([place]RO BE[place] MD) Progress/Results/Core Measures Suspected Sepsis SIRS Temperature: Pulse: 94 Respiratory Rate: 18 Laboratory Tests 02/20/23 16:50: White Blood Count 25.2H 02/21/23 03:30: White Blood Count 32.6*H Blood Pressure 89 /69 Mean: 76 02/20/23 16:50: Lactic Acid Level 1.30 Laboratory Tests 02/20/23 16:50: Creatinine 1.57H, INR Comment 1.4, Platelet Count 412H, Total Bilirubin 1.2H 02/21/23 03:30: Creatinine 1.30, Platelet Count 438H, Total Bilirubin 1.2H (SOLOMON CHAND MD) Results/Orders Lab Results Laboratory Tests Test 02/20/23 16:50 02/20/23 17:15 Range/Units White Blood Count 25.2 H 4.3-11.0 10^3/uL Red Blood Count 4.66 4.30-5.52 10^6/uL Hemoglobin 13.0 L 13.3-17.7 g/dL Hematocrit 40 40-54 % Mean Corpuscular Volume 86 80-99 fL Mean Corpuscular Hemoglobin 28 25-34 pg Mean Corpuscular Hemoglobin Concent 32 32-36 g/dL Red Cell Distribution Width 18.1 H 10.0-14.5 % Platelet Count 412 H 130-400 10^3/uL Mean Platelet Volume 9.5 9.0-12.2 fL Immature Granulocyte % (Auto) 1 % Neutrophils (%) (Auto) 87 H 42-75 % Lymphocytes (%) (Auto) 7 L 12-44 % Monocytes (%) (Auto) 5 0-12 % Eosinophils (%) (Auto) 0 0-10 % Basophils (%) (Auto) 0 0-10 % Neutrophils # (Auto) 21.9 H 1.8-7.8 10^3/uL Lymphocytes # (Auto) 1.8 1.0-4.0 10^3/uL Monocytes # (Auto) 1.2 H 0.0-1.0 10^3/uL Eosinophils # (Auto) 0.0 0.0-0.3 10^3/uL Basophils # (Auto) 0.1 0.0-0.1 10^3/uL Immature Granulocyte # (Auto) 0.2 H 0.0-0.1 10^3/uL Neutrophils % (Manual) 91 % Lymphocytes % (Manual) 6 % Monocytes % (Manual) 3 % Platelet Estimate MILDLY ELEVATED Clumped Platelets SLIGHT Poikilocytosis SLIGHT Anisocytosis SLIGHT Prothrombin Time 16.9 H 12.2-14.7 SEC INR Comment 1.4 0.8-1.4 Activated Partial Thromboplast Time 38 H 24-35 SEC Sodium Level 136 135-145 MMOL/L Potassium Level 3.9 3.6-5.0 MMOL/L Chloride Level 106 98-107 MMOL/L Carbon Dioxide Level 19 L 21-32 MMOL/L Anion Gap 11 5-14 MMOL/L Blood Urea Nitrogen 14 7-18 MG/DL Creatinine 1.57 H 0.60-1.30 MG/DL Estimat Glomerular Filtration Rate 44 BUN/Creatinine Ratio 9 Glucose Level 99 70-105 MG/DL Lactic Acid Level 1.30 0.50-2.00 MMOL/L Calcium Level 8.4 L 8.5-10.1 MG/DL Corrected Calcium 9.8 8.5-10.1 MG/DL Total Bilirubin 1.2 H 0.1-1.0 MG/DL Aspartate Amino Transf (AST/SGOT) 37 H 5-34 U/L Alanine Aminotransferase (ALT/SGPT) 13 0-55 U/L Alkaline Phosphatase 111 40-136 U/L Troponin I < 0.028 <0.028 NG/ML Total Protein 6.6 6.4-8.2 GM/DL Albumin 2.2 L 3.2-4.5 GM/DL Urine Color YELLOW Urine Clarity CLEAR Urine pH 5.5 5-9 Urine Specific [place] >=1.030 1.016-1.022 Urine Protein TRACE H NEGATIVE Urine Glucose (UA) NEGATIVE NEGATIVE Urine Ketones NEGATIVE NEGATIVE Urine Nitrite NEGATIVE NEGATIVE Urine Bilirubin 1+ H NEGATIVE Urine Urobilinogen 1.0 < = 1.0 MG/DL Urine Leukocyte Esterase NEGATIVE NEGATIVE Urine RBC (Auto) NEGATIVE NEGATIVE Urine RBC 0-2 /HPF Urine WBC NONE /HPF Urine Crystals PRESENT H /LPF Urine Amorphous Sediment MOD BONIFACIO URATES H /LPF Urine Bacteria NEGATIVE /HPF Urine Casts PRESENT /LPF Urine Hyaline Casts 10-25 H /LPF Urine Mucus LARGE H /LPF Urine Culture Indicated CULTURE PENDING Thyroid Stimulating Hormone (TSH) 0.09 L 0.35-4.94 UIU/ML Free Thyroxine 1.67 H 0.70-1.48 NG/DL ([place]RO [place] MD) Medications Given in ED Current Medications Medications Dose Ordered Sig/Julianne Route Start Time Stop Time Status Last Admin Dose Admin Clindamycin Phosphate/Dextrose 50 ml @ 100 mls/hr ONCE ONCE IV 02/20/23 17:45 02/20/23 18:14 DC 02/20/23 19:08 100 MLS/HR Piperacillin Sod/ Tazobactam Sod 4.5 gm/Sodium Chloride 100 ml @ 200 mls/hr ONCE ONCE IV 02/20/23 17:45 02/20/23 18:14 DC 02/20/23 18:42 200 MLS/HR ([place]RO BE[place] MD) Vital Signs/I&O 02/20/23 02/20/23 02/20/23 16:40 16:45 17:47 Temp 37.1 Pulse 94 97 Resp 18 B/P (MAP) 89/69 (76) 66/51 Pulse Ox 96 95 O2 Delivery Nasal Cannula Nasal Cannula O2 Flow Rate 2.00 2.00 ([place] BE[place] MD) Vital Signs/I&O Capillary Refill : Less Than 3 Seconds (SOLOMON CHAND MD) Blood Pressure Mean: 76 ECG Initial ECG Impression Date: Feb 20, 2023 Initial ECG Impression Time: 17:03 Initial ECG Rate: 93 Initial ECG Rhythm: A Fib/Flutter Initial ECG Impression: Atrial Fibrillation Comment Atrial fibrillation with no ischemic ST elevation or depression appreciated. Right bundle branch block. Right axis deviation. (SOLOMON CHAND MD) Diagnostic Imaging Diagonstic Imaging: Xray Plain Films/CT/US/NM/MRI: chest Comments NAME: [facility] REC#: [id number] PT STATUS: REG ER : 1940 PHYSICIAN: SOLOMON CHAND MD ADMIT DATE: 02/20/23/ER Signed Date of Exam:08/08/23 CHEST 1 VIEW, AP/PA ONLY EXAMINATION: Chest 1 view HISTORY: Hypotension COMPARISON: 12/26/2022 FINDINGS: Heart size is normal with prominence of the pulmonary vasculature. There are bilateral pleural effusions present. Patchy interstitial opacities throughout the lungs. No pneumothorax. Degenerative changes of the thoracic spine. Osseous structures are otherwise intact. IMPRESSION: 1. Bilateral pleural effusions with patchy interstitial opacities throughout the lungs. Findings can be seen with pulmonary edema or pneumonia. Dictated by: Dictated on workstation # [id number] Dict: 02/20/23 173 Trans: 02/20/231818 [facility] [id number] Interpreted by: DANDY MARTINEZ DO Electronically signed by: DANDY MARTINEZ DO 02/20/231818 (SOLOMON CHAND MD) Critical Care Note Critical Care Start Time: 16:40 Stop Time: 19:52 Total Time (minutes) 60 Progress 1717 - Patient was interviewed and examined at 1640 during nursing triage. IV normal saline initiated by EMS was infusing at a high rate. A second IV line was established and a second and third liter are presently infusing. Blood pressure did resuscitate a little bit to 89/79, but the most recent blood pressure was 53/41. If blood pressure is not resuscitated after the second liter has infused, pressors will need to be initiated. Labs are not completely resulted but WBC is 25,000. Patient is presumed to be in septic shock. 1759 - Patient briefly had resuscitated blood pressure but then quickly became hypotensive again. Blood pressure is presently 94/49 with a Levophed drip initiated. There is a probable abscess identified under the right mandible which could be source of infection. I consulted Dr. Michelle, ENT surgeon, by phone. We had discussed approach to managing this potential abscess. He would like CT soft tissues neck obtained, preferably with contrast. Surgery may be an option, but patient needs to be hemodynamically stable before surgery can be attempted. Dr. Michelle indicated he likely would not do surgery for at least 24 hours. In the meantime he recommended broad-spectrum antibiotics including clindamycin. Patient is presently receiving Zosyn and then will also receive clindamycin and vancomycin. He is receiving his third liter of IV fluid. He remains alert and conversational at this time. We have discussed CODE STATUS, and he elects to have a DNR order which is different than his documented CODE STATUS on the care home paperwork. I do believe he has a competent decision maker at this time and understands his decision. He asked me to call his son Sinan Villa who fully concurred with this decision and believes it is the right decision for Won. Plan at this time is to admit to the ICU on Levophed pressor support and broad-spectrum antibiotics. I did let the patient know his prognosis could be very poor at this point and his risk for mortality is quite high given his age and septic shock. I also communicated this to Sinan and suggested any family interested in visiting should do so quickly. 181 - Patient is still markedly hypotensive on Levophed while receiving a third liter of IVF. Report has been given to Dr. Beach, mine shifter ER physician. She will place a central line and assume care of any further ER needs. CT is still pending as patient has not been stable enough to leave the emergency department for imaging. Chest x-ray has been viewed by me. There are patchy infiltrates bilaterally with an effusion on the left. Radiologist's report was also reviewed as below. Avalos catheter has been placed and patient does appear to be making urine. Report was given to eICU. Hypotension resolved with pressor therapy prior to transfer to ICU. 60 minutes of critical care time was dedicated to this patient including bedside care, initial evaluation and history, chart review, ordering and interpreting of tests, management of septic shock with hypotension, consultation with consultants and hospitalist, shared decision making with patient and family, etc. This time excludes central line placment by Dr. Beach. (SOLOMON CHAND MD) Departure Communication (Admissions) Time/Spoke to Admitting Phy: 18:30 Dr. Velasquez Time/Spoke to Consulting Phy: 17:30 Dr. Michelle (SOLOMON CHAND MD) Impression Primary Impression: Septic shock Additional Impressions: Acute kidney injury Abscess, jaw Bilateral pneumonia Qualified Codes: J18.9 - Pneumonia, unspecified organism Disposition: ADMITTED INPATIENT Condition: Critical Admissions Decision to Admit Reason: Admit from ER (General) Decision to Admit/Date: Feb 20, 2023 Time/Decision to Admit Time: 17:30 (SOLOMON CHAND MD) Departure-Patient Inst. Referrals: JC SANTOS MD (PCP/Family) Primary Care Physician Copy Copies To 1: [facility]/SOLOMON SERVIN MD Feb 20, 2023 17:12 SOCORRO BE[place] MD Feb 20, 2023 19:43
[2023-02-20] MEDS ORDERED: NS IV 1000 ML 1,000 ML IV SCH ×2 (17:15)
[2023-02-20 17:17] LABS: ALBUMIN 2.2 GM/DL (3.2-4.5)
[2023-02-20 17:18] LABS: CHLORIDE 106 MMOL/L (98-107); POTASSIUM 3.9 MMOL/L (3.6-5.0); SODIUM 136 MMOL/L (135-145)
[2023-02-20 17:19] LABS: CALCIUM 8.4 MG/DL (8.5-10.1); INR 1.4 (0.8-1.4); PROTHROMBIN TIME PATIENT 16.9 SEC (12.2-14.7)
[2023-02-20 17:20] LABS: GLUCOSE 99 MG/DL (70-105); TOTAL PROTEIN 6.6 GM/DL (6.4-8.2)
[2023-02-20 17:21] LABS: CARBON DIOXIDE 19 MMOL/L (21-32)
[2023-02-20 17:22] LABS: BILIRUBIN,TOTAL 1.2 MG/DL (0.1-1.0)
[2023-02-20 17:23] LABS: ALKALINE PHOSPHATASE 111 U/L (40-136)
[2023-02-20 17:24] LABS: CREATININE SERUM 1.57 MG/DL (0.60-1.30); GFR ESTIMATED 44
[2023-02-20 17:25] LABS: BUN/CREATININE RATIO 9
[2023-02-20 17:26] LABS: ALANINE AMINOTRANSFERASE 13 U/L (0-55)
--- NOTE | 2023-02-20 17:42 | Diagnostic Imaging Report ---
EXAMINATION: Chest 1 view HISTORY: Hypotension COMPARISON: 12/26/2022 FINDINGS: Heart size is normal with prominence of the pulmonary vasculature. There are bilateral pleural effusions present. Patchy interstitial opacities throughout the lungs. No pneumothorax. Degenerative changes of the thoracic spine. Osseous structures are otherwise intact. IMPRESSION: 1. Bilateral pleural effusions with patchy interstitial opacities throughout the lungs. Findings can be seen with pulmonary edema or pneumonia. Dictated by: Dictated on workstation # [id number]
[2023-02-20] MEDS ORDERED: PIPERACILLIN SODIUM/TAZOBACTAM 4.5 GM in NS (IVPB) 100 ML 100 ML IV ONE (17:45)
[2023-02-20] MEDS ORDERED: CLINDAMYCIN 900 MG/50 ML IVPB 50 ML IV ONE (17:45)
[2023-02-20] MEDS ORDERED: NOREPINEPHRINE 8 MG/250 ML 250 ML IV SCH (17:45)
[2023-02-20 17:49] LABS: COLOR,URINE YELLOW
[2023-02-20 17:50] LABS: BILIRUBIN,URINE 1+ (NEGATIVE); CLARITY,URINE CLEAR; GLUCOSE, URINE (UA) NEGATIVE (NEGATIVE); KETONES,URINE NEGATIVE (NEGATIVE); LEUKOCYTE ESTERASE ,URINE NEGATIVE (NEGATIVE); NITRITE,URINE NEGATIVE (NEGATIVE); PH,URINE 5.5 (5-9); PROTEIN,URINE TRACE (NEGATIVE); RBC,URINE 0-2 /HPF
[2023-02-20 17:51] LABS: AMORPHOUS SEDIMENT,UR MOD AMOR URATES /LPF; BACTERIA,URINE NEGATIVE /HPF
[2023-02-20 18:08] LABS: FREE T4 (FREE THYROXINE) 1.67 NG/DL (0.70-1.48)
[2023-02-20] MEDS ORDERED: IOHEXOL 350 MG/ML 100 ML (OMNIPAQUE 350) VIAL IV ONE (18:15)
[2023-02-20] MEDS ORDERED: NS 100 ML (IVPB) BAG IV ONE (18:15)
[2023-02-20] MEDS ORDERED: HOLD METFORMIN - RECEIVED CONTRAST 20 ML VIAL IV SCH (18:15)
[2023-02-20 18:42] LABS: ANISOCYTOSIS SLIGHT; LYMPHOCYTES % (MANUAL) 6 %; MONOCYTES % (MANUAL) 3 %; NEUTROPHILS % (MANUAL) 91 %; PLATELET CLUMPS SLIGHT; PLATELET ESTIMATE MILDLY ELEVATED; POIKILOCYTOSIS SLIGHT
[2023-02-20] MEDS: VANCOMYCIN INJECTION 1,000 MG in NS (IVPB) 250 ML 250 ML IV SCH ×2 (19:13→21:39)
--- NOTE | 2023-02-20 20:18 | Diagnostic Imaging Report ---
EXAMINATION: CT neck with intravenous contrast. TECHNIQUE: Multiple contiguous axial images were obtained through the neck after the uneventful administration of intravenous contrast. All CT scans use one or more of the following dose optimizing techniques: automated exposure control, MA and/or KvP adjustment based on patient size and exam type or iterative reconstruction. HISTORY: Jaw abscess, Septic shock COMPARISON: None available. FINDINGS: The visualized portions of the skull base are normal. The cervical airway is patent. The soft tissues of the nasopharynx and oropharynx are normal. The right submandibular gland is enlarged and heterogeneous with surrounding inflammatory stranding. There is a 0.2 cm calcification within the inferior right submandibular gland. Left submandibular gland and parotid glands are unremarkable. Inherent muscles of the tongue and lingual tonsils are normal. There are a few prominent cervical chain lymph nodes present which are nonspecific and may be reactive. Visualized vascular structures are normal. The thyroid gland appears normal. Emphysematous changes in the lung apices. There is fluid within the upper esophagus. Degenerative changes of the cervical spine without acute osseous abnormality. IMPRESSION: 1. Enlarged and heterogeneous appearance of the right submandibular gland. There is a focal calcification inferiorly measuring 0.2 cm which may represent an obstructing sialolith resulting in sialadenitis. No loculated fluid collection. Dictated by: Dictated on workstation # [id number]
[2023-02-20] MEDS ORDERED: NS IV 500 ML 500 ML IV PRN (20:30)
[2023-02-20] MEDS ORDERED: MILK OF MAGNESIA 400 MG/5 ML 30 ML UDC PO PRN (20:30)
[2023-02-20] MEDS ORDERED: ONDANSETRON 4 MG/2 ML (SDV) Z0FRAN IV PRN (20:30)
[2023-02-20] MEDS ORDERED: ACETAMINOPHEN 325 MG TABLET PO PRN (20:30)
[2023-02-20] MEDS ORDERED: BISACODYL 10 MG SUPPOSITORY PR PRN (20:30)
[2023-02-20] MEDS ORDERED: diphenhydrAMINE 25 MG TABLET PO PRN (20:30)
[2023-02-20] MEDS ORDERED: CALCIUM CARBONATE 500 MG CHEW TABLET PO PRN (20:30)
[2023-02-20] MEDS ORDERED: HYDROmorphone INJECTION 2 MG/ML VIAL IV PRN (20:30)
[2023-02-20] MEDS ORDERED: diphenhydrAMINE INJ 50 MG/ML VIAL IVP PRN (20:30)
[2023-02-20] MEDS ORDERED: LACTULOSE SYRUP 10GM/15ML 30ML UDC PO PRN (20:30)
[2023-02-20] MEDS ORDERED: oxyCODONE IMMEDIATE RELEASE 5 MG TABLET PO PRN (20:30)
[2023-02-20] MEDS ORDERED: ANTACID SUSP 30 ML UDC (MYLANTA) PO PRN (20:30)
[2023-02-20] MEDS ORDERED: LIDOCAINE UROJET 2% GEL 10 ML PKG TOP ONE (20:30)
[2023-02-20] MEDS ORDERED: polyethylene glycoL POWDER 17 GM (MIRALAX) PACK PO PRN (20:30)
[2023-02-20] MEDS ORDERED: ONDANSETRON 4 MG (ZOFRAN) ORAL DISSOLVE TAB PO PRN (20:30)
[2023-02-20] MEDS ORDERED: MELATONIN 3 MG TABLET PO PRN (20:30)
[2023-02-20] MEDS ORDERED: VANCOMYCIN INJECTION 0.1 MG in NS (IVPB) 250 ML 250 ML IV SCH (20:30)
--- NOTE | 2023-02-20 21:03 | Tele-ICU Progress Note ---
Progress Note 82M with COPD on home O2, gout, CKD, GERD, afib, HTN, hypothyroid transferred from [facility] for AMS and hypotension. BP 62/47, HR 100 in the field. Found to have bilateral pneumonia and a mandibular abscess. - agree with christina delgado zosyn already initiated - blood cultures ordered but not yet collected - insulin sliding scale - DNR/DNI I have evaluated this patient using continuous audiovisual communication system. CCT 24 min Focused Exam Lactate Level 02/20/23 16:50: Lactic Acid Level 1.30 Height, Weight, BMI Height: '" Weight: lbs. oz. kg; 27.99 BMI Method: JUAN OROZCO MD Feb 20, 2023 21:03
[2023-02-20] MEDS ORDERED: RT-ALBUTEROL SULF 2.5 MG/3 ML PRE-MIX VIAL INH PRN (21:15)
[2023-02-20] MEDS: SENNOSIDES 8.6 MG (SENOKOT) TAB PO SCH (21:31)
[2023-02-20] MEDS: DOCUSATE SODIUM 100 MG CAPSULE PO SCH (21:31)
[2023-02-20] MEDS: NS IV 1000 ML 1,000 ML IV SCH (21:40)
[2023-02-20] MEDS: inSUlin ASPART 1 UNIT/0.01 ML (PER UNIT) SC SCH (21:56)
[2023-02-20] MEDS ORDERED: ENOXAPARIN 40 MG/0.4 ML SYRINGE SC SCH (22:00)
[2023-02-21] MEDS: PIPERACILLIN SODIUM/TAZOBACTAM 4.5 GM in NS (IVPB) 100 ML 100 ML IV SCH ×2 (02:06→07:57)
[2023-02-21] MEDS: RT-ALBUTEROL SULF 2.5 MG/3 ML PRE-MIX VIAL INH SCH ×2 (02:26→07:29)
[2023-02-21 02:51] LABS: ABG BASE EXCESS -10.2 MMOL/L (-2.5-2.5); ABG OXYGEN SATURATION 93 % (94-100); ABG PCO2 24 MMHG (35-45); ABG PH 7.38 (7.37-7.43); ABG PO2 61 MMHG (79-93); ABG TCO2 14.8 MMOL/L (21.0-31.0)
[2023-02-21 02:57] LABS: ALLENS TEST YES-POS; INSPIRED O2 2L; PATIENT TEMP 38.1; VENTILATOR NO
[2023-02-21 03:59] LABS: BASOPHILS # (AUTO) 0.1 10^3/uL (0.0-0.1); BASOPHILS % (AUTO) 0 % (0-10); EOSINOPHILS % (AUTO) 0 % (0-10); HEMATOCRIT 35 % (40-54); HEMOGLOBIN 11.3 g/dL (13.3-17.7); LYMPHOCYTES % (AUTO) 6 % (12-44); MEAN CORPUSCULAR HEMOGLOBIN 28 pg (25-34); MEAN CORPUSCULAR HGB CONC 33 g/dL (32-36); MEAN CORPUSCULAR VOLUME 85 fL (80-99); MEAN PLATELET VOLUME 10.2 fL (9.0-12.2); MONOCYTES # (AUTO) 1.7 10^3/uL (0.0-1.0); MONOCYTES % (AUTO) 5 % (0-12); NEUTROPHILS # (AUTO) 28.5 10^3/uL (1.8-7.8); NEUTROPHILS % (AUTO) 88 % (42-75); PLATELET COUNT 438 10^3/uL (130-400)
[2023-02-21 04:11] LABS: WHITE BLOOD COUNT 32.6 10^3/uL (4.3-11.0)
[2023-02-21 04:14] LABS: ALBUMIN 1.9 GM/DL (3.2-4.5); BILIRUBIN,TOTAL 1.2 MG/DL (0.1-1.0); CALCIUM 7.4 MG/DL (8.5-10.1); CREATININE SERUM 1.3 MG/DL (0.60-1.30); MAGNESIUM 1.4 MG/DL (1.6-2.4); PHOSPHORUS 3.5 MG/DL (2.3-4.7); POTASSIUM 3.5 MMOL/L (3.6-5.0); TOTAL PROTEIN 5.5 GM/DL (6.4-8.2)
[2023-02-21] MEDS: CLINDAMYCIN 600 MG/50 ML IVPB 50 ML IV SCH ×2 (04:36→11:18)
[2023-02-21] MEDS: NOREPINEPHRINE 8 MG/250 ML 250 ML IV SCH ×2 (04:37→09:22)
[2023-02-21] MEDS ORDERED: LACTATED RINGERS 1,000 ML IV SCH (05:15)
--- NOTE | 2023-02-21 05:26 | Progress Note ---
Standard Progress Note Progress Notes/Assess & Plan Date Seen by a Provider: Feb 21, 2023 Time Seen by a Provider: 06:00 Progress/Assessment & Plan ENT-Viviana-02/21-6am Patient seen and evaluated-very ill ct reviewed-no abscess to drain-has right submandibular sialoadenitis which hopefully will respond to antiboitcs and the fluids he does have a small stone inthe gland- currently in no shape to do surgery even if there was an abscess pressent neck unlikey to be the source of his spesis-more likely to be his pneumonia or other source of infectin will follow along but at this time nothing to drain in the neck (see cT report) Final Diagnosis Right Submandibular Sialoadenitis sepsis Focused Exam Lactate Level 02/20/23 16:50: Lactic Acid Level 1.30 LESTER PITTS MD Feb 21, 2023 05:26
--- NOTE | 2023-02-21 05:34 | History & Physical-Hospitalist ---
History of Present Illness Date Seen 02/21/23 Time Seen by a Provider: 12:00 Attending Physician [facility] PCP Admitting Physician: Marleny Velasquez DO Attending Physician: Marleny Velasquez DO Referring Physician Date of Admission Feb 20, 2023 at 19:50 Home Medications & Allergies Home Medications Reviewed patient Home Medication Reconciliation performed by pharmacy medication reconciliations cardiovascular technician and/or nursing. Patients Allergies have been reviewed. Allergies Allergies Coded Allergies morphine (Verified Allergy, Unknown, 11/10/20) Past Tkvoaku-Neorhe-Qqqrtg Hx Patient Social History Tobacco Use?: Yes Smoking Status: Former Smoker Substance use?: No Alcohol Use?: No Pt feels they are or have been: No Immunizations Up To Date First/Initial COVID19 Vaccinat: YES Second COVID19 Vaccination Jayce: YES Tetanus Booster (TDap): Less Than 5 Years Hepatitis A: No Hepatitis B: No Seasonal Allergies Seasonal Allergies: No Current Status Advance Directives: No Communicates: Verbally Primary Language: Khmer Preferred Spoken Language: Khmer Is interpretation needed?: No Implanted or Applied Medical D: None Past Medical History Surgeries: Abdominal, Gallbladder Atrial Fibrillation, Hypertension Renal Failure (Chronic kidney disease) Gastroesophageal Reflux, Ulcer Hypothyroidsim Anxiety, Depression PMHx: COPD SurgHx: Cholecystectomy and hernia repair Family Medical History No Pertinent Family Hx Physical Exam Physical Exam Vital Signs Vital Signs - First Documented 02/20/23 16:40 Temp 37.1 Pulse 94 Resp 18 B/P (MAP) 89/69 (76) Pulse Ox 96 O2 Delivery Nasal Cannula O2 Flow Rate 2.00 Capillary Refill : Less Than 3 Seconds Height, Weight, BMI Height: '" Weight: lbs. oz. kg; 27.99 BMI Method: Results Results/Procedures Labs Laboratory Tests 02/20/23 16:50 02/21/23 03:30 Patient resulted labs reviewed. MARLENY VELASQUEZ DO Feb 21, 2023 05:33
[2023-02-21] MEDS: NS IV 1000 ML 1,000 ML IV SCH (05:45)
[2023-02-21] MEDS ORDERED: POTASSIUM CHLORIDE 20 MEQ TABLET PO SCH (06:00)
[2023-02-21] MEDS: inSUlin ASPART 1 UNIT/0.01 ML (PER UNIT) SC SCH ×2 (06:03→11:18)
[2023-02-21] MEDS: MAGNESIUM 1 GM/100 ML IVPB 100 ML IV SCH ×4 (06:21→08:07)
[2023-02-21] MEDS: POTASSIUM CL 10MEQ/50ML IVPB 50 ML IV SCH ×4 (06:22→08:08)
[2023-02-21 07:38] VITALS: BP 105/62
--- NOTE | 2023-02-21 08:24 | Diagnostic Imaging Report ---
INDICATION: Pneumonia TECHNIQUE: Single view chest 3:32 AM CORRELATION STUDY: 02/20/2023 FINDINGS: Heart size and mediastinum are generally stable. The severity of vascular congestion and overall edema is diminished and improved. Mildly prominent interstitial markings do remain throughout both lung adams along with small effusions. Thoracic spine stimulator lead remains in place. IMPRESSION: 1. Overall improvement in appearance of the chest. There appears to be decreasing edema. Prominent interstitial markings along with small effusions do persist. Dictated by: Dictated on workstation # [id number]
[2023-02-21] MEDS ORDERED: ACETAMINOPHEN 650 MG SUPPOSITORY PR PRN ×2 (08:30→14:30)
[2023-02-21] MEDS ORDERED: SODIUM BICARBONATE IV SCH (08:45)
[2023-02-21] MEDS ORDERED: D5W IV SCH (08:45)
[2023-02-21] MEDS ORDERED: PANTOPRAZOLE 40 MG (PROTONIX) VIAL IV SCH (09:00)
[2023-02-21] MEDS: DOCUSATE SODIUM 100 MG CAPSULE PO SCH (09:07)
[2023-02-21] MEDS: SENNOSIDES 8.6 MG (SENOKOT) TAB PO SCH (09:08)
--- NOTE | 2023-02-21 10:25 | Tele-ICU Progress Note ---
Subjective Date Seen by a Provider: Feb 21, 2023 Time Seen by a Provider: 10:24 Subjective/Events-last exam (Tele-ICU Physician , Progress Note ) Service provided via interactive audio and video telecommunications E-CARE system to a patient admitted to ICU bed in [facility]. Patient is seen today due to persistent need of ICU care Available chart/ vitals / labs / Images reviewed Video assessment done using teleICU camera, rest of exam as per RN Discussed with RN Events overnight : Afebrile hemodynamically stable Respiratory - I/O = Drips: ns 125 Pressors- LEVO Hospital course: (02/20) 82yr M admitted for Bilateral Pneumonia, Mandible Abcess, CAYETANO.Patient to ER from detention with AMS and hypotension. He is afebrile and somnolent. 02/21 -LEVO , Bipap 12/ 30% rr 34 TV 700 MV 24L A/P Acute resp failure -Bipap 12/ 30% rr 34 TV 700 MV 24L - CPM , follow closely Septic shock - Suspected bilateral pneumonia and a mandibular abscess - treceived IVF sepsis protocol , started on levo - also severely acidotic - try to correct and follow -cont clinda, vanco, zosyn - blood culturespending Enlarged and heterogeneous appearance of the right submandibular gland - CT neck donr , ENT consulted - " no drainable absess" as per vernal report - cont abx CAYETANO - improveing with hydration , suspect pulm edema - will decrease IVF Severe met acisosis - add bicarb grtt since on pressors - ? etilogy ( as per RN : abd soft , no diarrhea ) - follow abg and labs DM - insulin sliding scale ECHO 2021 0 EF 50 % , RVSP 25 DNR/DNI Lines : R fem 02/20 , (Central Line Necessity Reviewed) Avalos: + 02/20 OG: Nutrition: npo Analgesia: Anxiety/ delirium VTE Prophylaxis: raj Stress Ulcer Prophylaxis: ppi Plans in collaboration with bedside consultants and IM MDs. Discussed with RN to reach out if any questions or concerns Case and care daily discussed on multidisciplinary rounds ( RN, PharmD, Welding Specialist , Respiratory Therapy, decontamination worker ) A total of 33 minutes of critical care time was devoted to this patient today, required to treat and/or prevent further deterioration of critical care condition ( as above ) . I am remotely monitoring this patient from another state. I am unable to do the bedside exam, and history/physical and pertinent information is taken from other notes in the computer and bedside staff. Sepsis Event Evaluation Height, Weight, BMI Height: '" Weight: lbs. oz. kg; 27.99 BMI Method: Focused Exam Lactate Level 02/20/23 16:50: Lactic Acid Level 1.30 Exam Exam Patient acknowledged, consented, and participated in this virtual visit which was conducted using real time audio/video Vital Signs Date Time Temp Pulse Resp B/P (MAP) Pulse Ox O2 Delivery O2 Flow Rate FiO2 02/21/23 09:25 36.7 02/21/23 09:22 105 95/58 02/21/23 09:00 106 95/63 (74) 100 Nasal Cannula 2.00 02/21/23 08:40 38.2 02/21/23 08:14 36.9 02/21/23 08:00 108 92/66 (75) 91 Nasal Cannula 2.00 02/21/23 07:49 106 02/21/23 07:48 98 NIV Bilevel 02/21/23 07:38 105 33 100 30.00 02/21/23 07:38 38.2 02/21/23 07:00 121 99/62 (74) 97 Nasal Cannula 2.00 02/21/23 06:00 107 103/64 (77) 98 Nasal Cannula 2.00 02/21/23 05:14 109 35 97 30.00 02/21/23 05:00 112 92/53 (66) 93 Nasal Cannula 2.00 02/21/23 04:37 120 108/47 02/21/23 04:00 103 103/52 (69) 93 Nasal Cannula 2.00 02/21/23 04:00 98 NIV Bilevel 02/21/23 03:56 130 02/21/23 03:30 103 129/69 (89) 92 Nasal Cannula 2.00 02/21/23 03:00 99 104/39 (60) 92 Nasal Cannula 2.00 02/21/23 02:30 99 104/58 (73) 94 Nasal Cannula 2.00 02/21/23 02:26 96 Nasal Cannula 2.00 02/21/23 02:07 38.3 02/21/23 02:00 98 95/80 (85) 94 Nasal Cannula 2.00 02/21/23 01:30 99 97/56 (70) 94 Nasal Cannula 2.00 02/21/23 01:01 99 02/21/23 01:00 98 83/59 (67) 93 Nasal Cannula 2.00 02/21/23 00:30 98 93/52 (66) 95 Nasal Cannula 2.00 02/21/23 00:00 98 90/41 (57) 95 Nasal Cannula 2.00 02/21/23 00:00 38.3 02/20/23 23:59 98 Nasal Cannula 2.00 02/20/23 23:00 98 67/50 (56) 88 Nasal Cannula 2.00 02/20/23 22:55 96 21 91/62 (72) 92 Nasal Cannula 2.00 02/20/23 22:41 38.1 98 117/71 (86) Nasal Cannula 2.00 02/20/23 22:37 96 20 117/71 (86) Nasal Cannula 2.00 02/20/23 22:02 98 97/56 (71) 95 Nasal Cannula 2.00 02/20/23 21:51 99 93/55 (75) 97 Nasal Cannula 2.00 02/20/23 21:11 100 02/20/23 21:00 97 95/82 (86) 94 Nasal Cannula 2.00 02/20/23 20:51 37.1 94 96 02/20/23 20:49 100 Nasal Cannula 2.00 02/20/23 20:45 101 18 95/59 (66) 96 Nasal Cannula 2.00 02/20/23 20:31 100 113/60 (68) 92 Nasal Cannula 2.00 02/20/23 20:25 101 96/73 (81) 97 Nasal Cannula 2.00 02/20/23 20:14 101 99/70 (81) 97 Nasal Cannula 2.00 02/20/23 20:09 98 87/74 (77) 96 Nasal Cannula 2.00 02/20/23 19:57 101 22 102/41 97 Nasal Cannula 2.00 02/20/23 17:47 97 66/51 02/20/23 16:45 95 Nasal Cannula 2.00 02/20/23 16:40 37.1 94 18 89/69 (76) 96 Nasal Cannula 2.00 I & O 02/21/23 07:00 Intake Total 5000 ml Output Total 375 ml Balance 4625 ml Height & Weight Height: '" Weight: lbs. oz. kg; 27.99 BMI Method: General Appearance: WD/WN, Mild Distress, Obese HEENT: PERRL/EOMI, Other (Oropharynx somewhat dry. Floor of the mouth is edematous and tender on the right. There is a warm, erythematous, tender, and indurated fullness under the right mandible suggestive of abscess or gland infection.) Neck: Normal Inspection; No JVD Respiratory: Lungs Clear, Normal Breath Sounds, No Accessory Muscle Use, No Respiratory Distress Cardiovascular: Regular Rate, Rhythm, No Edema, No Murmur Capillary Refill: Less Than 3 Seconds Extremity: No Pedal Edema, Other (Cool, dusky fingers and toes with sluggish capillary refill) Neurologic/Psychiatric: Alert (Decreased alertness), Oriented x3, Other (No focal deficits. Mentation a bit sluggish. Occasional involuntary twitching) Results Lab Laboratory Tests 02/20/23 16:50 02/21/23 03:30 Assessment/Plan Assessment/Plan 1 EVELYN FLOOD MD Feb 21, 2023 10:24
[2023-02-21 10:48] VITALS: BP 105/62
[2023-02-21 10:54] LABS: ABG BASE EXCESS -11.2 MMOL/L (-2.5-2.5); ABG OXYGEN SATURATION 98 % (94-100); ABG PCO2 22 MMHG (35-45); ABG PH 7.38 (7.37-7.43); ABG PO2 85 MMHG (79-93)
[2023-02-21] MEDS ORDERED: VANCOMYCIN 1500MG/300ML PREMIX IV SCH (11:00)
[2023-02-21 11:01] LABS: ALLENS TEST YES-POS; INSPIRED O2 30% BIPAP; PATIENT TEMP 35.4; VENTILATOR NO
--- NOTE | 2023-02-21 12:41 | Consultation-Cardiology ---
HPI-Cardiology Cardiology Consultation: Date of Consultation 02/21/23 Time Seen by a Provider: 09:00 Date of Admission Attending Physician [facility] Admitting Physician Admitting Physician: Marleny Velasquez DO Attending Physician: Marleny Velasquez DO Consulting Physician TREVOR LUCIO MD, MA, FACP, FACC, [facility], CCDS Physician requesting consult: Dr Velasquez HPI: Chief Complaint: Reason for Card consult: One 7-beat run or wide-complex tachycardia on 02/21/23 82 [address] to Dr Velasquez's service on 02/20/23 through the ER where he was sent from his NH because of mental status changes, hypotension, and fever. He has been diagnosed with sepsis that is being managed by Dr Velasquez and the ICU sv bro. He is currently on an oxygen mask and does not reply to questions in any reliable or detailed manner. As far as we can gather, he does not have cp or palp or significant shortness of breath. We are asked to see him because of one run of 7-beat WCT on the monitor Review of Systems-Cardiology Review of Systems Constitutional: other (pt does not provide any review of systems) [id number] Hx Patient Social History Smoking Status: Former Smoker Alcohol Use?: No Pt feels they are or have been: No Past Medical History PMH As described under Assessment. Family Medical History Family Medical History: Pt does not report fam history Allergies and Home Medications Allergies Coded Allergies: morphine (Verified Allergy, Unknown, 11/10/20) Patient Home Medication List Home Medication List Reviewed: Yes Albuterol Sulfate (Albuterol Sulfate) 1.25 Mg/3 Ml Vial.neb, 3 ML NEB Q6H PRN for SHORTNESS OF BREATH, (Reported) Entered as Reported by: AIRAM PRESCOTT on 03/08/22 0957 Albuterol Sulfate (Albuterol Sulfate) 0.63 Mg/3 Ml Vial.neb, 3 ML NEB TID, (Reported) Entered as Reported by: AIRAM PRESCOTT on 11/09/22 1105 Allopurinol (Allopurinol) 300 Mg Tablet, 300 MG PO DAILY, (Reported) Entered as Reported by: CONNIE SMITH on 01/03/21 1041 Amiodarone HCl (Amiodarone HCl) 200 Mg Tablet, 200 MG PO DAILY, (Reported) Entered as Reported by: CONNIE SMITH on 01/03/21 104 Aspirin (Aspirin EC) 81 Mg Tablet.dr, 81 MG PO DAILY, (Reported) Entered as Reported by: AIRAM PRESCOTT on 03/08/22956 Benzonatate (Tessalon Perles) 100 Mg Capsule, 200 MG PO Q8H PRN for COUGH, (Reported) Entered as Reported by: AIRAM PRESCOTT on 11/09/22 110 Bupropion HCl (Bupropion Xl) 150 Mg Tab.er.24h, 150 MG PO DAILY, (Reported) Entered as Reported by: AIRAM PRESCOTT on 11/09/22 110 Carboxymethylcellulose Sodium (Refresh Tears) 0.5 % Drops, 1 DROP OU BID, (Reported) Entered as Reported by: AIRAM PRESCOTT on 03/08/22956 Diltiazem HCl (Diltiazem HCl) 60 Mg Tablet, 60 MG PO TID, (Reported) Entered as Reported by: CONNIE SMITH on 01/03/21 104 Docusate Sodium (Docusate Sodium) 100 Mg Capsule, 100 MG PO BID, (Reported) Entered as Reported by: AIRAM PRESCOTT on 03/08/22956 Famotidine (Acid Pool Player (FAMOTIDINE)) 20 Mg Tablet, 20 MG PO BID, (Reported) Entered as Reported by: AIRAM PRESCOTT on 03/08/22956 Fluticasone Propionate (Fluticasone Propionate) 50 Mcg/Actuation [place].susp, 1 SPRAY NSEACH DAILY, (Reported) Entered as Reported by: CONNIE SMITH on 01/03/21 104 Levofloxacin (Levofloxacin) 750 Mg Tablet, 750 MG PO DAILY Prescribed by: DAI ALMARAZ on 12/26/22 1813 Levothyroxine Sodium (Levothyroxine Sodium) 175 Mcg Tablet, 175 MCG PO DAILY, (Reported) Entered as Reported by: AIRAM PRESCOTT on 03/08/22 09 Melatonin (Melatonin) 5 Mg Tablet, 5 MG PO HS, (Reported) Entered as Reported by: AIRAM PRESCOTT on 03/08/22 09 Memantine HCl (Memantine HCl ER) 28 Mg Cap.spr.24, 28 MG PO DAILY, (Reported) Entered as Reported by: CONNIE SMITH on 01/03/21 1041 Methylprednisolone (Methylprednisolone Dose Pack) 4 Mg Tab.ds.pk, 4 MG PO UD Prescribed by: DAI ALMARAZ on 12/26/22 1813 Multivitamin with Minerals (Multivitamins with Minerals) 1 Each Tablet, 1 EACH PO DAILY, (Reported) Entered as Reported by: AIRAM PRESCOTT on 11/09/22 1105 Petrolat,Wht/Min Oil/Sod Chl (Refresh P.m. Ointment P-F) 42.5 %-57.3 % Oint...g., 1 APPLIC OU HS, (Reported) Entered as Reported by: AIRAM PRESCOTT on 11/09/22 1105 Polyethylene Glycol 3350 (Miralax) 17 Gm Powd.pack, 17 GM PO DAILY, (Reported) Entered as Reported by: ANGELI TAY on 08/01/21 1528 Trazodone HCl (Trazodone HCl) 100 Mg Tablet, 100 MG PO HS, (Reported) Entered as Reported by: AIRAM PRESCOTT on 11/09/22 1105 Venlafaxine HCl (Venlafaxine HCl ER) 75 Mg Cap.er.24h, 75 MG PO DAILY, (Reported) Entered as Reported by: CONNIE SMITH on 01/03/21 1041 Physical Exam-Cardiology Physical Exam Vital Signs/I&O 02/21/23 02/21/23 02/21/23 02/21/23 01:00 01:01 01:30 02:00 Pulse 98 99 99 98 B/P (MAP) 83/59 (67) 97/56 (70) 95/80 (85) Pulse Ox 93 94 94 O2 Delivery Nasal Cannula Nasal Cannula Nasal Cannula O2 Flow Rate 2.00 2.00 2.00 02/21/23 02/21/23 02/21/23 02/21/23 02:07 02:26 02:30 03:00 Temp 38.3 Pulse 99 99 B/P (MAP) 104/58 (73) 104/39 (60) Pulse Ox 96 94 92 O2 Delivery Nasal Cannula Nasal Cannula Nasal Cannula O2 Flow Rate 2.00 2.00 2.00 02/21/23 02/21/23 02/21/23 02/21/23 03:30 03:56 04:00 04:00 Pulse 103 130 103 B/P (MAP) 129/69 (89) 103/52 (69) Pulse Ox 92 98 93 O2 Delivery Nasal Cannula NIV Bilevel Nasal Cannula O2 Flow Rate 2.00 2.00 02/21/23 02/21/23 02/21/23 02/21/23 04:37 05:00 05:14 06:00 Pulse 120 112 109 107 Resp 35 B/P (MAP) 108/47 92/53 (66) 103/64 (77) Pulse Ox 93 97 98 O2 Delivery Nasal Cannula Nasal Cannula O2 Flow Rate 2.00 30.00 2.00 02/21/23 02/21/23 02/21/23 02/21/23 07:00 07:38 07:38 07:48 Temp 38.2 Pulse 121 105 Resp 33 B/P (MAP) 99/62 (74) Pulse Ox 97 100 98 O2 Delivery NIV Bilevel NIV Bilevel O2 Flow Rate 30.00 30.00 02/21/23 02/21/23 02/21/23 02/21/23 07:49 08:00 08:14 08:40 Temp 36.9 38.2 Pulse 106 108 B/P (MAP) 92/66 (75) Pulse Ox 91 O2 Delivery NIV Bilevel O2 Flow Rate 30.00 02/21/23 02/21/23 02/21/23 02/21/23 09:00 09:22 09:25 10:00 Temp 36.7 Pulse 106 105 105 B/P (MAP) 95/63 (74) 95/58 98/59 (72) Pulse Ox 100 99 O2 Delivery NIV Bilevel NIV Bilevel O2 Flow Rate 30.00 30.00 02/21/23 02/21/23 02/21/23 02/21/23 10:48 11:00 11:02 12:06 Temp 37.7 Pulse 105 105 Resp 33 B/P (MAP) 87/70 (76) Pulse Ox 100 99 O2 Delivery NIV Bilevel Nasal Cannula O2 Flow Rate 30.00 30.00 2.00 02/21/23 00:00 Intake Total 2600 ml Output Total 250 ml Balance 2350 ml Capillary Refill : Less Than 3 Seconds Constitutional: No AAO x 3; well-developed, well-nourished, other (confused, minimally responsive) HEENT: No xanthelasmas are seen Neck: carotid pulses are 2 + bilaterally, with good upstrokes Respiratory: No accessory muscle use; chest expansion is symmetric, chest is bilaterally symmetric, other (generally diminished air enty and prolonged exp) Cardiovascular: regular rate-rhythm, S1 and S2, systolic murmur (soft DIPAK at card base) Gastrointestinal: No tender; soft; No guarding, No rebound; audible bowel sounds Extremities: other (mild selling of legs); No clubbing, No cyanosis Neurologic/Psychiatric: No oriented x 3; other (seems to be able to move all limbs) Skin: other (Extremities a bit cool and dusky; heels under dressing that were not removed) Data Review Labs Laboratory Tests 02/20/23 16:50: White Blood Count 25.2H, Red Blood Count 4.66, Hemoglobin 13.0L, Hematocrit 40, Mean Corpuscular Volume 86, Mean Corpuscular Hemoglobin 28, Mean Corpuscular Hemoglobin Concent 32, Red Cell Distribution Width 18.1H, Platelet Count 412H, Mean Platelet Volume 9.5, Immature Granulocyte % (Auto) 1, Neutrophils (%) (Auto) 87H, Lymphocytes (%) (Auto) 7L, Monocytes (%) (Auto) 5, Eosinophils (%) (Auto) 0, Basophils (%) (Auto) 0, Neutrophils # (Auto) 21.9H, Lymphocytes # (Auto) 1.8, Monocytes # (Auto) 1.2H, Eosinophils # (Auto) 0.0, Basophils # (Auto) 0.1, Immature Granulocyte # (Auto) 0.2H, Neutrophils % (Manual) 91, Lymphocytes % (Manual) 6, Monocytes % (Manual) 3, Platelet Estimate MILDLY ELEVATED, Clumped Platelets SLIGHT, Poikilocytosis SLIGHT, Anisocytosis SLIGHT, Prothrombin Time 16.9H, INR Comment 1.4, Activated Partial Thromboplast Time 38H , Sodium Level 136, Potassium Level 3.9, Chloride Level 106, Carbon Dioxide Level 19L, Anion Gap 11, Blood Urea Nitrogen 14, Creatinine 1.57H, Estimat Glomerular Filtration Rate 44, BUN/Creatinine Ratio 9, Glucose Level 99, Lactic Acid Level 1.30, Calcium Level 8.4L, Corrected Calcium 9.8, Total Bilirubin 1.2H , Aspartate Amino Transf (AST/SGOT) 37H, Alanine Aminotransferase (ALT/SGPT) 13, Alkaline Phosphatase 111, Troponin I < 0.028, Total Protein 6.6, Albumin 2.2L 02/20/23 17:15: Urine Color YELLOW, Urine Clarity CLEAR, Urine pH 5.5, Urine Specific [place] >=1.030, Urine Protein TRACEH, Urine Glucose (UA) NEGATIVE, Urine Ketones NEGATIVE, Urine Nitrite NEGATIVE, Urine Bilirubin 1+H, Urine Urobilinogen 1.0, Urine Leukocyte Esterase NEGATIVE, Urine RBC (Auto) NEGATIVE, Urine RBC 0-2, Urine WBC NONE, Urine Crystals PRESENTH, Urine Amorphous Sediment MOD BONIFACIO URATESH, Urine Bacteria NEGATIVE, Urine Casts PRESENT, Urine Hyaline Casts 10- 25H, Urine Mucus LARGEH, Urine Culture Indicated CULTURE PENDING, Thyroid Stimulating Hormone (TSH) 0.09L, Free Thyroxine 1.67H 02/20/23 20:43: Glucometer 102 02/21/23 02:35: Blood Gas Puncture Site LR, Blood Gas Patient Temperature 38.1, Arterial Blood pH 7.38, Arterial Blood Partial Pressure CO2 24L, Arterial Blood Partial Pressure O2 61L, Arterial Blood HCO3 14*L, Arterial Blood Total CO2 14.8L, Arterial Blood Oxygen Saturation 93L, Arterial Blood Base Excess -10.2L, Erasmo Test YES-POS, Blood Gas Ventilator Setting NO, Blood Gas Inspired Oxygen 2L 02/21/23 03:30: White Blood Count 32.6*H, Red Blood Count 4.05L, Hemoglobin 11.3L, Hematocrit 35L, Mean Corpuscular Volume 85, Mean Corpuscular Hemoglobin 28, Mean Corpuscular Hemoglobin Concent 33, Red Cell Distribution Width 18.0H, Platelet Count 438H, Mean Platelet Volume 10.2, Immature Granulocyte % (Auto) 1, Neutrophils (%) (Auto) 88H, Lymphocytes (%) (Auto) 6L, Monocytes (%) (Auto) 5, Eosinophils (%) (Auto) 0, Basophils (%) (Auto) 0, Neutrophils # (Auto) 28.5H, Lymphocytes # (Auto) 2.0, Monocytes # (Auto) 1.7H, Eosinophils # (Auto) 0.0, Basophils # (Auto) 0.1, Immature Granulocyte # (Auto) 0.3H, Sodium Level 138, Potassium Level 3.5L, Chloride Level 111H, Carbon Dioxide Level 14L, Anion Gap 13, Blood Urea Nitrogen 13, Creatinine 1.30, Estimat Glomerular Filtration Rate 56, BUN/Creatinine Ratio 10, Glucose Level 137H, Calcium Level 7.4L, Corrected Calcium 9.1, Phosphorus Level 3.5, Magnesium Level 1.4L, Total Bilirubin 1.2H, Aspartate Amino Transf (AST/SGOT) 42H, Alanine Aminotransferase (ALT/SGPT) 12, Alkaline Phosphatase 97, Total Protein 5.5L, Albumin 1.9L 02/21/23 10:45: Blood Gas Puncture Site L RAD, Blood Gas Patient Temperature 35.4, Arterial Blood pH 7.38, Arterial Blood Partial Pressure CO2 22L, Arterial Blood Partial Pressure O2 85, Arterial Blood HCO3 13*L, Arterial Blood Total CO2 14.0L, Arterial Blood Oxygen Saturation 98, Arterial Blood Base Excess -11.2L, Erasmo Test YES-POS, Blood Gas Ventilator Setting NO, Blood Gas Inspired Oxygen 30% BIPAP 02/21/23 10:55: Glucometer 215H Microbiology 02/20/23 Urine Culture - Preliminary, Resulted A/P-Cardiology Assessment/Admission Diagnosis Septic shock - managed by Dr Velasquez One 7-beat run of wide-complex tachycardia on 02/21/23 - baseline ventricular complexes are also wide due to chronic RBBB Hypomagnesemia Chronic RBBB Discussion and Recomendations * iv magnesium * Treat sepsis, monitor labs, and maintain acid-base and electrolyte balance (Dr Velasquez and ICU svce managing) * TREVOR Lloyd MD FACP [facility] CCDS Feb 21, 2023 12:41
[2023-02-21] MEDS ORDERED: DILT30TA PO (12:45)
[2023-02-21] MEDS ORDERED: VNL75T PO (12:45)
[2023-02-21] MEDS ORDERED: ACET-2267 PO (12:45)
[2023-02-21] MEDS ORDERED: BISA10SU8 RC (12:45)
[2023-02-21] MEDS ORDERED: FAMO20TA5 PO (12:45)
[2023-02-21] MEDS ORDERED: GUAI100L13 PO (12:45)
[2023-02-21] MEDS ORDERED: PROM473S9 PO (12:45)
[2023-02-21] MEDS ORDERED: MINE3.5O20 OU (12:48)
[2023-02-21] MEDS ORDERED: NS IV 1000 ML 1,000 ML IV SCH (13:11)
--- NOTE | 2023-02-21 14:25 | Discharge Summary ---
Discharge Summary Hospital Course Hospital Course Date of Admission: Feb 20, 2023 at 19:50 Admission Diagnosis : Family Physician/Provider: [place] Date of Discharge: 02/21/23 Discharge Diagnosis: [ ] Hospital Course: [ ] Labs and Pending Lab Test: Laboratory Tests 02/20/23 16:50: White Blood Count 25.2H, Red Blood Count 4.66, Hemoglobin 13.0L, Hematocrit 40, Mean Corpuscular Volume 86, Mean Corpuscular Hemoglobin 28, Mean Corpuscular Hemoglobin Concent 32, Red Cell Distribution Width 18.1H, Platelet Count 412H, Mean Platelet Volume 9.5, Immature Granulocyte % (Auto) 1, Neutrophils (%) (Auto) 87H, Lymphocytes (%) (Auto) 7L, Monocytes (%) (Auto) 5, Eosinophils (%) (Auto) 0, Basophils (%) (Auto) 0, Neutrophils # (Auto) 21.9H, Lymphocytes # (Auto) 1.8, Monocytes # (Auto) 1.2H, Eosinophils # (Auto) 0.0, Basophils # (Auto) 0.1, Immature Granulocyte # (Auto) 0.2H, Neutrophils % (Manual) 91, Lymphocytes % (Manual) 6, Monocytes % (Manual) 3, Platelet Estimate MILDLY ELEVATED, Clumped Platelets SLIGHT, Poikilocytosis SLIGHT, Anisocytosis SLIGHT, Prothrombin Time 16.9H, INR Comment 1.4, Activated Partial Thromboplast Time 38H , Sodium Level 136, Potassium Level 3.9, Chloride Level 106, Carbon Dioxide Level 19L, Anion Gap 11, Blood Urea Nitrogen 14, Creatinine 1.57H, Estimat Glomerular Filtration Rate 44, BUN/Creatinine Ratio 9, Glucose Level 99, Lactic Acid Level 1.30, Calcium Level 8.4L, Corrected Calcium 9.8, Total Bilirubin 1.2H , Aspartate Amino Transf (AST/SGOT) 37H, Alanine Aminotransferase (ALT/SGPT) 13, Alkaline Phosphatase 111, Troponin I < 0.028, Total Protein 6.6, Albumin 2.2L 02/20/23 17:15: Urine Color YELLOW, Urine Clarity CLEAR, Urine pH 5.5, Urine Specific [place] >=1.030, Urine Protein TRACEH, Urine Glucose (UA) NEGATIVE, Urine Ketones NEGA TIVE, Urine Nitrite NEGATIVE, Urine Bilirubin 1+H, Urine Urobilinogen 1.0, Urine Leukocyte Esterase NEGATIVE, Urine RBC (Auto) NEGATIVE, Urine RBC 0-2, Urine WBC NONE, Urine Crystals PRESENTH, Urine Amorphous Sediment MOD BONIFACIO URATESH, Urine Bacteria NEGATIVE, Urine Casts PRESENT, Urine Hyaline Casts 10-25H, Urine Mucus LARGEH, Urine Culture Indicated CULTURE PENDING, Thyroid Stimulating Hormone (TSH) 0.09L, Free Thyroxine 1.67H 02/20/23 20:43: Glucometer 102 02/21/23 02:35: Blood Gas Puncture Site LR, Blood Gas Patient Temperature 38.1, Arterial Blood pH 7.38, Arterial Blood Partial Pressure CO2 24L, Arterial Blood Partial Pressure O2 61L, Arterial Blood HCO3 14*L, Arterial Blood Total CO2 14.8L, Arterial Blood Oxygen Saturation 93L, Arterial Blood Base Excess -10.2L, Erasmo Test YES-POS, Blood Gas Ventilator Setting NO, Blood Gas Inspired Oxygen 2L 02/21/23 03:30: White Blood Count 32.6*H, Red Blood Count 4.05L, Hemoglobin 11.3L, Hematocrit 35L, Mean Corpuscular Volume 85, Mean Corpuscular Hemoglobin 28, Mean Corpuscu lar Hemoglobin Concent 33, Red Cell Distribution Width 18.0H, Platelet Count 438H, Mean Platelet Volume 10.2, Immature Granulocyte % (Auto) 1, Neutrophils (%) (Auto) 88H, Lymphocytes (%) (Auto) 6L, Monocytes (%) (Auto) 5, Eosinophils (%) (Auto) 0, Basophils (%) (Auto) 0, Neutrophils # (Auto) 28.5H, Lymphocytes # (Auto) 2.0, Monocytes # (Auto) 1.7H, Eosinophils # (Auto) 0.0, Basophils # (Auto) 0.1, Immature Granulocyte # (Auto) 0.3H, Sodium Level 138, Potassium Level 3.5L, Chloride Level 111H, Carbon Dioxide Level 14L, Anion Gap 13, Blood Urea Nitrogen 13, Creatinine 1.30, Estimat Glomerular Filtration Rate 56, BUN/Creatinine Ratio 10, Glucose Level 137H, Calcium Level 7.4L, Corrected Calcium 9.1, Phosphorus Level 3.5, Magnesium Level 1.4L, Total Bilirubin 1.2H, Aspartate Amino Transf (AST/SGOT) 42H, Alanine Aminotransferase (ALT/SGPT) 12, Alkaline Phosphatase 97, Total Protein 5.5L, Albumin 1.9L 02/21/23 10:45: Blood Gas Puncture Site L RAD, Blood Gas Patient Temperature 35.4, Arterial Blood pH 7.38, Arterial Blood Partial Pressure CO2 22L, Arterial Blood Partial Pressure O2 85, Arterial Blood HCO3 13*L, Arterial Blood Total CO2 14.0L, Arterial Blood Oxygen Saturation 98, Arterial Blood Base Excess -11.2L, Erasmo Test YES-POS, Blood Gas Ventilator Setting NO, Blood Gas Inspired Oxygen 30% BIPAP 02/21/23 10:55: Glucometer 215H Microbiology 02/20/23 Urine Culture - Preliminary, Resulted Home Meds Active Reported Refresh P.m. Ointment P-F (Petrolat,Wht/Min Oil/Sod Chl) 42.5 %-57.3 % Oint...g. 1 Applic OU HS Promethazine-Codeine Solution (Promethazine HCl/Codeine) 6.25 Mg-10 Mg/5 Ml Syrup 5 Ml PO Q6H PRN Tylenol Extra Strength (Acetaminophen) 500 Mg Tablet 1,000 Mg PO Q6H PRN Bisacodyl 10 Mg Supp.rect 10 Mg RC Q72H @HS Guaifenesin 100 Mg/5 Ml Liquid 10 Ml PO TID Famotidine 20 Mg Tablet 20 Mg PO BID Venlafaxine HCl 75 Mg Tab 75 Mg PO DAILY Diltiazem HCl 30 Mg Tablet 30 Mg PO DAILY HOLD FOR SBP LESS THAN 110 Albuterol Sulfate 0.63 Mg/3 Ml Vial.neb 3 Ml NEB TID Bupropion Xl (Bupropion HCl) 150 Mg Tab.er.24h 150 Mg PO DAILY Trazodone HCl 100 Mg Tablet 100 Mg PO HS Multivitamins with Minerals (Multivitamin with Minerals) 1 Each Tablet 1 Each PO DAILY Refresh Tears (Carboxymethylcellulose Sodium) 0.5 % Drops 1 Drop OU BID Albuterol Sulfate 1.25 Mg/3 Ml Vial.neb 3 Ml NEB Q6H PRN Docusate Sodium 100 Mg Capsule 100 Mg PO BID Melatonin 5 Mg Tablet 5 Mg PO HS Levothyroxine Sodium 175 Mcg Tablet 175 Mcg PO DAILY Aspirin EC (Aspirin) 81 Mg Tablet.dr 81 Mg PO DAILY Miralax (Polyethylene Glycol 3350) 17 Gm Powd.pack 17 Gm PO DAILY Memantine HCl ER (Memantine HCl) 28 Mg Cap.spr.24 28 Mg PO DAILY Fluticasone Propionate 50 Mcg/Actuation [place].susp 1 [place] NSEACH DAILY Amiodarone HCl 200 Mg Tablet 200 Mg PO DAILY Allopurinol 300 Mg Tablet 300 Mg PO DAILY Discharge Physical Examination Vital Signs Vital Signs Date Time Temp Pulse Resp B/P (MAP) Pulse Ox O2 Delivery O2 Flow Rate FiO2 02/21/23 13:15 103 02/21/23 13:00 93/70 (78) 95 OxyMask 4.00 02/21/23 12:06 37.7 02/21/23 10:48 33 Allergies: Coded Allergies: morphine (Verified Allergy, Unknown, 11/10/20) Discharge Summary Date of Admission Feb 20, 2023 at 19:50 Date of Discharge Comfort Measures/ End of Life Care: Comfort Measures PADMINI ALONSO DO Feb 21, 2023 14:25
[2023-02-21] MEDS ORDERED: ATROPINE 1% OPHTHALMIC SOLN 2 ML SL PRN (14:30)
[2023-02-21] MEDS ORDERED: SALIVA SUBSTITUTE 60 ML SPRAY(MOUTHKOTE) MM PRN (14:30)
[2023-02-21] MEDS ORDERED: BISACODYL 10 MG SUPPOSITORY PR PRN (14:30)
[2023-02-21] MEDS ORDERED: HYDROmorphone INJECTION 2 MG/ML VIAL IVP PRN (14:30)
[2023-02-21] MEDS ORDERED: LORazepam 1 MG (ATIVAN) TAB SL PRN (14:30)
[2023-02-21] MEDS ORDERED: SCOPOLAMINE 1.5 MG (TRANSDERM-SCOP) PATCH TOP SCH (14:30)
[2023-02-21] MEDS ORDERED: ARTIFICAL TEARS Ophth solution 0.4 ML UNIT DOSE OU PRN (14:30)
[2023-02-21] MEDS ORDERED: GLYCOPYRROLATE INJ 0.2 MG/ML 2 ML VIAL IV PRN (14:30)
[2023-02-21] MEDS ORDERED: LORazepam INJ 2 MG/ML (ATIVAN) VIAL IVP PRN (14:30)
[2023-02-21] MEDS ORDERED: PROMETHAZINE INJ 25 MG/ML (PHENERGAN) AMP IVP PRN (14:30)
[2023-02-21] MEDS ORDERED: ONDANSETRON 4 MG/2 ML (SDV) Z0FRAN IVP PRN (14:30)
[2023-02-21] MEDS ORDERED: RT-Ipratropium/Albuterol NEB 3 ML VIAL INH PRN (14:30)
--- NOTE | 2023-02-21 15:01 | History & Physical-Hospitalist ---
[facility] 02/21/23 1501: History of Present Illness HPI/Chief Complaint CC: Hypotension and altered mental status HPI: 82 y/o male with a significant history of COPD with use of supplemental O2 on nasal cannula, gout, CKD, GERD, afib, HTN, hypothyroidism, anxiety, and depression presented to the ED from a assisted with altered mental status and hypotension. The initial reading was 62/47 with a pulse of 100 and the reading as of 2pm today was 97/84 with a pulse of 104. Patient was alert and oriented x3 when he arrived and he reported no feeling of illness but felt a new mass form under his jaw. He was admitted to the ICU with the diagnosis of s epsis 2/2 bilateral pneumonia and the mass was suggested to be a mandibular abscess. He was started on IVF and antibiotics but his condition continued to worsen and was eventually placed on BiPAP at 30%. At 7:45 in the morning he responded to the nurse saying he has no pain and could squeeze her finger, but at approx 10:40 he looked very ill and weak. Patient was not alert and not able to respond to general questions asked. Date Seen 02/21/23 Time Seen by a Provider: 10:40 Attending Physician [place] PCP Admitting Physician: Marleny Velasquez DO Attending Physician: Marleny Velasquez DO Referring Physician Date of Admission Feb 20, 2023 at 19:50 Home Medications & Allergies Home Medications Reviewed patient Home Medication Reconciliation performed by pharmacy medication reconciliations orthopedic technician and/or nursing. Patients Allergies have been reviewed. Allergies Allergies Coded Allergies morphine (Verified Allergy, Unknown, 11/10/20) Past Svaznys-Hzvhxb-Zmjpsg Hx Patient Social History Tobacco Use?: Yes Smoking Status: Former Smoker Substance use?: No Alcohol Use?: No Pt feels they are or have been: No Immunizations Up To Date First/Initial COVID19 Vaccinat: YES Second COVID19 Vaccination Jayce: YES Tetanus Booster (TDap): Less Than 5 Years Hepatitis A: No Hepatitis B: No Seasonal Allergies Seasonal Allergies: No Current Status Advance Directives: No Communicates: Verbally Primary Language: Djib[place]ian Preferred Spoken Language: [place]ian Is interpretation needed?: No Implanted or Applied Medical D: None Past Medical History Surgeries: Abdominal, Gallbladder Atrial Fibrillation, Hypertension Renal Failure (Chronic kidney disease) Gastroesophageal Reflux, Ulcer Hypothyroidsim Anxiety, Depression PMHx: COPD SurgHx: Cholecystectomy and hernia repair Family Medical History No Pertinent Family Hx Review of Systems ROS-Unable to Obtain: Patient was on BiPAP and ill Constitutional: no symptoms reported, fever Physical Exam Physical Exam Vital Signs Vital Signs - First Documented 02/20/23 16:40 Temp 37.1 Pulse 94 Resp 18 B/P (MAP) 89/69 (76) Pulse Ox 96 O2 Delivery Nasal Cannula O2 Flow Rate 2.00 Capillary Refill : Less Than 3 Seconds Height, Weight, BMI Height: '" Weight: lbs. oz. kg; 27.99 BMI Method: General Appearance: Chronically ill, Moderate Distress Cardiovascular: Regular Rate, Rhythm, Tachycardia (7 beat run document by c ardiology consult ) Neurologic/Psychiatric: No Alert, No Oriented x3 Skin: Normal Color Results Results/Procedures Labs Laboratory Tests 02/20/23 16:50 02/21/23 03:30 Patient resulted labs reviewed. Assessment/Plan Admission Diagnosis Altered mental status, hypotension Admission Status: Inpatient Order (span 2 midnights) Reason for Inpatient Admission: Septic shock, hypotension, altered mental status Assessment and Plan Assessment: Sepsis pneumonia acute respiratory failure hypotension altered mental status Plan: Keep in ICU and monitor vitals comfort care MARLENY VELASQUEZ DO 02/21/232020: Assessment/Plan Admission Diagnosis Septic shock in 82yo NH patient is unrecoverable. Had lengthy conversation with son while he was traveling to come to [facility] and then again after he arrived at the bedside and all in agreement to DC biPAP and Levophed and place on comfort care protocol Admission Status: Inpatient Order (span 2 midnights) Reason for Inpatient Admission: septic shock Supervisory-Addendum Brief Verification & Attestation Participated in pt care: history, MDM, physical Personally performed: exam, history, MDM, supervision of care Care discussed with: Medical Student Procedures: n/a Results interpretation: Verified all documentation Verification and Attestation of Medical Student E/M Service A medical student performed and documented this service in my presence. I reviewed and verified all information documented by the medical student and made modifications to such information, when appropriate. I personally performed the physical exam and medical decision making. Marleny Velasquez Feb 21, 2023,20:19 QUINN Feb 21, 2023 15:01 MARLENY VELASQUEZ DO Feb 21, 2023 20:21
--- NOTE | 2023-02-22 05:54 | Progress Note - Hospitalist ---
Subjective HPI/CC On Admission Date Seen by Provider: Feb 22, 2023 Time Seen by Provider: 11:00 CC: Hypotension and altered mental status HPI: 82 y/o male with a significant history of COPD with use of supplemental O2 on nasal cannula, gout, CKD, GERD, afib, HTN, hypothyroidism, anxiety, and depression presented to the ED from a half-way with altered mental status and hypotension. The initial reading was 62/47 with a pulse of 100 and the reading as of 2pm today was 97/84 with a pulse of 104. Patient was alert and oriented x3 when he arrived and he reported no feeling of illness but felt a new mass form under his jaw. He was admitted to the ICU with the diagnosis of sepsis 2/2 bilateral pneumonia and the mass was suggested to be a mandibular abscess. He was started on IVF and antibiotics but his condition continued to worsen and was eventually placed on BiPAP at 30%. At 7:45 in the morning he responded to the nurse saying he has no pain and could squeeze her finger, but at approx 10:40 he looked very ill and weak. Patient was not alert and not able to respond to general questions asked. Focused Exam Lactate Level 02/20/23 16:50: Lactic Acid Level 1.30 Objective Exam Vital Signs Vital Signs Date Time Temp Pulse Resp B/P (MAP) Pulse Ox O2 Delivery O2 Flow Rate FiO2 02/21/23 21:00 Nasal Cannula 2.00 02/21/23 16:00 36.0 57 91 02/21/23 14:00 97/84 (88) 02/21/23 10:48 33 Capillary Refill : Less Than 3 Seconds Results/Procedures Lab Patient resulted labs reviewed. PADMINI ALONSO DO Feb 22, 2023 05:54
[2023-02-22] MEDS ORDERED: TROUGH ORDER-PHARMACY XX NR (10:00)
== END 2023-02-22 05:20 | disposition expired | DRG 871 ==
LOC: EDUNIT# 16:35 → ER 16:35 → ICU 19:50 → 4TH 02-21 16:00
PROVIDERS: ADMIT Internal Medicine; ATTEND Internal Medicine
PROC: 06HM33Z Insertion of Infusion Device into Right Femoral Vein, Percutaneous Approach (ICD-10-PCS; principal; 2023-02-20)
PROC: 5A09357 Assistance with Respiratory Ventilation, Less than 24 Consecutive Hours, Continuous Positive Airway Pressure (ICD-10-PCS; 2023-02-21)
DX: A41.9 Sepsis, unspecified organism (principal); J18.9 Pneumonia, unspecified organism; R65.21 Severe sepsis with septic shock; J96.00 Acute respiratory failure, unspecified whether with hypoxia or hypercapnia; N17.9 Acute kidney failure, unspecified; J44.0 Chronic obstructive pulmonary disease with (acute) lower respiratory infection; R41.82 Altered mental status, unspecified; Z66 Do not resuscitate; Z51.5 Encounter for palliative care; Z99.81 Dependence on supplemental oxygen; E11.22 Type 2 diabetes mellitus with diabetic chronic kidney disease; N18.9 Chronic kidney disease, unspecified; I12.9 Hypertensive chronic kidney disease with stage 1 through stage 4 chronic kidney disease, or unspecified chronic kidney disease; I48.91 Unspecified atrial fibrillation; E03.9 Hypothyroidism, unspecified; K11.20 Sialoadenitis, unspecified; I45.10 Unspecified right bundle-branch block; E83.42 Hypomagnesemia; K21.9 Gastro-esophageal reflux disease without esophagitis; F41.9 Anxiety disorder, unspecified; F32.A Depression, unspecified; M10.9 Gout, unspecified; Z85.828 Personal history of other malignant neoplasm of skin; Z88.5 Allergy status to narcotic agent; Z79.82 Long term (current) use of aspirin
CPT/HCPCS: 36415; 36600; 51702; 70491; 71045; 80053; 81000; 82805; 82947; 83605; 83735; 84100; 84439; 84443; 84484; 85007; 85025; 85027; 85610; 85730; 87040; 87081; 87088; 93005; 93041; 93306; 94640; 94660